=== PATIENT | male | born 1940 | race Caucasian/White ===

== ENCOUNTER 2017-09-05 08:16 | Day surgery (SDC) | payer MEDICARE ==
[2017-09-04 10:33] VITALS: BMI 23.5
[~2017-09-05 08:16] MED LIST: LACTATED RINGERS 1,000 ML IV SCH
[2017-09-05 09:07] VITALS: TEMP 97.8
[2017-09-05] MEDS: CYCLOPENTOLATE 1% OPHTH SOLN 2 ML BTL OP ONE ×3 (09:13→09:25)
[2017-09-05] MEDS: PHENYLEPHRINE 10% OPHTH DROPS 5 ML BTL OP ONE ×3 (09:15→09:28)
[2017-09-05] MEDS: FLURBIPROFEN 0.03% OPHTH DROPS 2.5 ML BTL OP ONE ×3 (09:17→09:30)
[2017-09-05] MEDS ORDERED: LACTATED RINGERS 1,000 ML IV ONE (09:31)
[2017-09-05 10:10] LABS: Prothrombin Time 26.5 sec (9.0-12.0)
[2017-09-05] MEDS ORDERED: fentaNYL (PF) 50 MCG/ML 2 ML AMP ONE (10:46)
[2017-09-05] MEDS ORDERED: MIDAZOLAM 2 MG/2 ML VIAL ONE (10:46)
[2017-09-05] MEDS ORDERED: PROPOFOL 10 MG/ML 20 ML VIAL IV ONE (10:46)
[2017-09-05] MEDS ORDERED: EPINEPHrine (PF) 0.5 ML in BALANCED SALT IRRIG SOLN COMB2 500 ML IRRIGATION ONE (10:58)
[2017-09-05] MEDS ORDERED: BALANCED SALT IRRIG SOLN COMB2 15 ML IRRIG.SOLN IRRIGATION ONE (10:59)
[2017-09-05] MEDS ORDERED: HYALURONATE SODIUM INTRAOCULAR 1 EACH SYRINGE (10MG/ML) INTRAOCULA ONE (10:59)
--- NOTE | 2017-09-05 11:09 | P.OP ---
Date of Procedure: 09/05/17 Procedure(s) Performed: PREOPERATIVE DIAGNOSIS: Cataract, left eye. POSTOPERATIVE DIAGNOSIS: Cataract, left eye. OPERATION: Phacoemulsification cataract, left eye. DESCRIPTION OF PROCEDURE: The patient was taken to the preoperative holding area. Intravenous Propofol was given so as to bring about adequate sedation. The following mixture was given for local anesthesia: 5 mL of 2% lidocaine, 5 mL of 0.75% Marcaine, and 1 mL of Wydase. Approximately 4 mL was injected in the retrobulbar space of the surgical eye. Additional 1 mL was then directed to the temporal area of the surgical eye. This was performed to allow adequate neurological block of the facial muscles. The patient was revived and then taken into the operative room. The patient was prepped and draped in the usual sterile manner for the operative eye. A lid speculum was put into position. The conjunctiva was resected back from the limbus in the 12 o'clock position. Bleeding was controlled with electrocautery. A #69 blade was then used and a half-thickness scleral incision approximately 1-mm posterior to the limbus was made on bare sclera. This was shelved in the clear cornea using a crescent knife. Next a 15-degree blade was used to make a stab incision at the 3 o' clock position at the corneolimbal interface. Keratome blade was then used and the superior wound was extended into the anterior chamber. Viscoelastic was injected into the anterior chamber and to maintain its form. Next, a cystotome was used and a continuous anterior capsulotomy was made without difficulty. Hydrodissection using a blunt cannula and BSS was performed. Phaco probe was then employed and a groove extending from 12 to 6 o'clock in the lens was created. A Dominick wand was used through the stab incision so as to perform a divide and conquer technique. Next an irrigation aspiration probe was utilized and any residual cortex was removed from the eye. Again, viscoelastic was injected into the anterior chamber. An Jesse posterior chamber lens implant was placed in the cartridge and injected into the anterior chamber without difficulty. The [employer] hook was utilized to spin the lens into position and this was again performed without any difficulty. The irrigation and aspiration probe was again employed and any residual viscoelastic was removed from the eye. Then BSS was injected into the limbal stab incision and the anterior chamber re-inflated. The conjunctiva was reapproximated using electrocautery. One drop of 0.25% Timoptic was placed over the corneal along with TobraDex ophthalmic ointment. Two sterile patches and a Neri eye shield were taped into position. The patient was transported to the recovery room in stable condition. Pathology: none sent Condition: stable Disposition: same day
[2017-09-05 11:28] VITALS: BP 148/87; PULSE 84; RESP 18
[2017-09-05] MEDS ORDERED: TIMOLOL 0.5% OPHTH DROPS 5 ML BTL OP ONE (23:00)
[2017-09-05] MEDS ORDERED: BUPIVACAINE (PF) 0.75% 5 ML, HYALURONIDASE, HUMAN RECOMB 150 UNIT, LIDOCAINE 2% (PF) 10... MISCELLANE ONE ×3 (23:00)
[2017-09-05] MEDS ORDERED: GENTAMICIN/PREDNISOL AC OPHTH OINT 3.5GM OPHTHALMIC ONE (23:00)
== END 2017-09-05 11:47 | disposition home or self-care (01) ==
LOC: OR 08:16
PROVIDERS: ATTEND Ophthalmology
DX: H26.9 Unspecified cataract (principal); H04.129 Dry eye syndrome of unspecified lacrimal gland; I10 Essential (primary) hypertension; I48.91 Unspecified atrial fibrillation; Z79.01 Long term (current) use of anticoagulants; Z87.891 Personal history of nicotine dependence; Z95.2 Presence of prosthetic heart valve; K21.9 Gastro-esophageal reflux disease without esophagitis; K57.90 Diverticulosis of intestine, part unspecified, without perforation or abscess without bleeding; Z79.899 Other long term (current) drug therapy; Z88.5 Allergy status to narcotic agent; Z88.0 Allergy status to penicillin; Z88.8 Allergy status to other drugs, medicaments and biological substances
CPT/HCPCS: 85610; 66984; V2632; J2250; J3470; J2001; J0171; J3010; J2704

== ENCOUNTER 2017-10-31 10:31 | Day surgery (SDC) | payer MEDICARE ==
[2017-10-24 16:25] VITALS: BMI 23.5
[~2017-10-31 10:31] MED LIST changes: -LACTATED RINGERS 1,000 ML IV SCH; +LIDOCAINE 1% 20 ML VIAL (10MG/ML) FOR IV START INTRADERMA PRN; +MIDAZOLAM 2 MG/2 ML VIAL IV PRN
[2017-10-31 11:35] VITALS: RESP 18; TEMP 97.3
[2017-10-31] MEDS: CYCLOPENTOLATE 1% OPHTH SOLN 2 ML BTL OP ONE ×3 (11:38→11:58)
[2017-10-31] MEDS: PHENYLEPHRINE 10% OPHTH DROPS 5 ML BTL OP ONE ×3 (11:42→12:02)
[2017-10-31] MEDS: FLURBIPROFEN 0.03% OPHTH DROPS 2.5 ML BTL OP ONE ×3 (11:45→12:04)
[2017-10-31] MEDS: LACTATED RINGERS 1,000 ML IV SCH ×2 (11:53→12:17)
[2017-10-31] MEDS ORDERED: PROPOFOL 10 MG/ML 20 ML VIAL IV ONE (12:18)
[2017-10-31] MEDS ORDERED: EPINEPHrine (PF) 0.5 ML in BALANCED SALT IRRIG SOLN COMB2 500 ML IRRIGATION ONE (12:22)
[2017-10-31] MEDS ORDERED: HYALURONATE SODIUM INTRAOCULAR 1 EACH SYRINGE (10MG/ML) INTRAOCULA ONE (12:23)
[2017-10-31] MEDS ORDERED: TIMOLOL 0.5% OPHTH SOLN (PF) 0.2 ML DROPERETTE RIGHT EYE ONE (12:23)
[2017-10-31] MEDS ORDERED: BALANCED SALT IRRIG SOLN COMB2 15 ML IRRIG.SOLN IRRIGATION ONE (12:23)
--- NOTE | 2017-10-31 12:42 | P.OP ---
Date of Procedure: 10/31/17 Procedure(s) Performed: PREOPERATIVE DIAGNOSIS: Cataract, right eye. POSTOPERATIVE DIAGNOSIS: Cataract, right eye. OPERATION: Phacoemulsification cataract, right eye. DESCRIPTION OF PROCEDURE: The patient was taken to the preoperative holding area. Intravenous Propofol was given so as to bring about adequate sedation. The following mixture was given for local anesthesia: 5 mL of 2% lidocaine, 5 mL of 0.75% Marcaine, and 1 mL of Wydase. Approximately 4 mL was injected in the retrobulbar space of the surgical eye. Additional 1 mL was then directed to the temporal area of the surgical eye. This was performed to allow adequate neurological block of the facial muscles. The patient was revived and then taken into the operative room. The patient was prepped and draped in the usual sterile manner for the operative eye. A lid speculum was put into position. The conjunctiva was resected back from the limbus in the 12 o'clock position. Bleeding was controlled with electrocautery. A #69 blade was then used and a half-thickness scleral incision approximately 1-mm posterior to the limbus was made on bare sclera. This was shelved in the clear cornea using a crescent knife. Next a 15-degree blade was used to make a stab incision at the 3 o' clock position at the corneolimbal interface. Keratome blade was then used and the superior wound was extended into the anterior chamber. Viscoelastic was injected into the anterior chamber and to maintain its form. Next, a cystotome was used and a continuous anterior capsulotomy was made without difficulty. Hydrodissection using a blunt cannula and BSS was performed. Phaco probe was then employed and a groove extending from 12 to 6 o'clock in the lens was created. A Dominick wand was used through the stab incision so as to perform a divide and conquer technique. Next an irrigation aspiration probe was utilized and any residual cortex was removed from the eye. Again, viscoelastic was injected into the anterior chamber. An Jesse posterior chamber lens implant was placed in the cartridge and injected into the anterior chamber without difficulty. The [employer] hook was utilized to spin the lens into position and this was again performed without any difficulty. The irrigation and aspiration probe was again employed and any residual viscoelastic was removed from the eye. Then BSS was injected into the limbal stab incision and the anterior chamber re-inflated. The conjunctiva was reapproximated using electrocautery. One drop of 0.25% Timoptic was placed over the corneal along with TobraDex ophthalmic ointment. Two sterile patches and a Neri eye shield were taped into position. The patient was transported to the recovery room in stable condition. Pathology: none sent Condition: stable Disposition: same day
[2017-10-31 13:04] VITALS: BP 159/82; PULSE 84
[2017-10-31] MEDS ORDERED: BUPIVACAINE (PF) 0.75% 5 ML, HYALURONIDASE, HUMAN RECOMB 150 UNIT, LIDOCAINE 2% (PF) 10... MISCELLANE ONE ×3 (23:00)
[2017-10-31] MEDS ORDERED: GENTAMICIN/PREDNISOL AC OPHTH OINT 3.5GM OPHTHALMIC ONE (23:00)
[2017-10-31] MEDS ORDERED: TIMOLOL 0.5% OPHTH DROPS 5 ML BTL OP ONE (23:00)
== END 2017-10-31 13:28 | disposition home or self-care (01) ==
LOC: OR 10:31
PROVIDERS: ATTEND Ophthalmology
DX: H26.9 Unspecified cataract (principal); I10 Essential (primary) hypertension; H04.129 Dry eye syndrome of unspecified lacrimal gland; Z96.1 Presence of intraocular lens; Z85.038 Personal history of other malignant neoplasm of large intestine; Z95.2 Presence of prosthetic heart valve; Z79.01 Long term (current) use of anticoagulants; Z87.891 Personal history of nicotine dependence; E78.5 Hyperlipidemia, unspecified; Z85.828 Personal history of other malignant neoplasm of skin; K21.9 Gastro-esophageal reflux disease without esophagitis; Z79.899 Other long term (current) drug therapy; Z88.5 Allergy status to narcotic agent; Z88.8 Allergy status to other drugs, medicaments and biological substances
CPT/HCPCS: 66984; V2632; J3470; J2001; J0171; J2704

== ENCOUNTER → 2017-12-07 | Outpatient (CLI) | payer MEDICARE ==
[2017-12-07 11:07] LABS: INR 3.3 (<1.2); Prothrombin Time 29.8 sec (9.0-12.0)
[2017-12-07 11:10] LABS: Anisocytosis Slight; HCT 32.6 % (39.0-53.0); Hypochromasia Moderate; MCH 27.2 pg (25.0-35.0); MCHC 31.9 g/dL (31.0-37.0); Mean Platelet Volume 7.4; Platelet Count 211 k/uL (150-450); Poikilocytosis Slight; RBC 3.82 m/uL (4.30-5.90); RDW 16.2 % (11.5-15.5); WBC 4.6 k/uL (3.8-10.6)
--- NOTE | 2017-12-07 11:13 | XR ---
EXAMINATION TYPE: XR chest 2V DATE OF EXAM: 12/07/2017 COMPARISON: NONE HISTORY: Shortness of breath TECHNIQUE: Frontal and lateral views of the chest are obtained. FINDINGS: Scattered senescent parenchymal changes noted. Hyperinflation compatible with COPD. Chronic appearing elevation right hemidiaphragm. Small effusion as well as mild linear density at the right lung base may reflect atelectasis or developing infiltrate. Correlate clinically. Heart size is mildly enlarged. Pericardial calcification noted. Mediastinal structures are stable and grossly unremarkable. No evidence for hilar prominence. Degenerative changes dorsal spine. IMPRESSION: 1. Chronic appearing elevation right hemidiaphragm. Small effusion as well as mild linear density at the right lung base may reflect atelectasis or developing infiltrate. Correlate clinically.
[2017-12-07 11:15] LABS: HGB 10.4 gm/dL (13.0-17.5); MCV 85.3 fL (80.0-100.0)
[2017-12-07 11:25] LABS: Albumin 4.4 g/dL (3.5-5.0); Calcium 9.7 mg/dL (8.4-10.2); Potassium 4.8 mmol/L (3.5-5.1); Total Bilirubin 2.2 mg/dL (0.2-1.3); Total Protein 7.4 g/dL (6.3-8.2)
== END | disposition home or self-care (01) ==
LOC: LABWHC1 10:02
PROVIDERS: ATTEND Internal Medicine
DX: J98.6 Disorders of diaphragm (principal); J90 Pleural effusion, not elsewhere classified; R91.8 Other nonspecific abnormal finding of lung field; I48.0 Paroxysmal atrial fibrillation; N18.3 Chronic kidney disease, stage 3 (moderate); Z51.81 Encounter for therapeutic drug level monitoring; Z95.4 Presence of other heart-valve replacement
CPT/HCPCS: 36415; 71046; 80053; 83880; 85027; 85610

== ENCOUNTER 2017-12-21 09:52 | Day surgery (SDC) | payer MEDICARE ==
[2017-12-18 15:19] VITALS: BMI 23.6
[~2017-12-21 09:52] MED LIST changes: -LIDOCAINE 1% 20 ML VIAL (10MG/ML) FOR IV START INTRADERMA PRN
[2017-12-21] MEDS: LACTATED RINGERS 1,000 ML IV SCH ×2 (10:34→10:45)
[2017-12-21] MEDS: LIDOCAINE 1% 20 ML VIAL (10MG/ML) FOR IV START INTRADERMA PRN ×2 (10:34→10:45)
[2017-12-21 10:44] VITALS: RESP 18; TEMP 97
[2017-12-21] MEDS ORDERED: LIDOCAINE 1% INJ 10MG/ML (20 ML MDV) ONE (11:20)
[2017-12-21] MEDS ORDERED: PROPOFOL 10 MG/ML 20 ML VIAL IV ONE (11:20)
[2017-12-21 11:39] LABS: Calcium 9.2 mg/dL (8.4-10.2); Potassium 3.8 mmol/L (3.5-5.1)
--- NOTE | 2017-12-21 11:53 | P.PCN ---
Date of Procedure: 12/21/17 Procedure(s) Performed: Brief history: Patient is a pleasant 77-year-old white male scheduled for an elective upper endoscopy as well as colonoscopy as a part of evaluation of intermittent dysphagia to solids which has been progressively getting worse for the last 6 months duration. He has known history of esophageal stricture that was dilated in 2016. He is also scheduled for a screening colonoscopy today. Procedure performed: Esophagogastroduodenoscopy with biopsy and dilation Colonoscopy Preoperative diagnosis: Progressive dysphagia to solids Screening for colon cancer Anesthesia: MAC Procedure: After informed consent was obtained from the patient was brought into the endoscopy unit and IV sedation was administered by anesthesia under continuous monitoring. Initially upper endoscopy was done. The Olympus GF 160 video endoscope was inserted inserted into the mouth and esophagus intubated without any difficulty and was gradually advanced into the distal esophagus and there was evidence of esophageal stricture noted. The scope could not be advanced through the stricture. At this time the scope was removed and a pediatric upper endoscopy was introduced into the mouth and esophagus reintubated without any difficulty and was gradually advanced into the distal esophagus. Despite this I was not able to advance the scope into the stomach because of the tight esophageal stricture. At this time I proceeded with a balloon dilation using 8- 10 TTS balloon for total of 90 seconds. Following this with gentle manipulation it was able to advance the scope into the stomach and duodenum and carefully examined. The bulb and second part of the duodenum appeared normal. The scope was then withdrawn into the stomach adequately insufflated with air and upon careful examination the antrum and body, cardia and fundus appeared normal. The scope was then withdrawn into the esophagus. Small hiatal hernia noted. The GE junction was located at 40 cm to the incisors. There was severe esophagitis with multiple erosions or ulcerations in the distal esophagus consistent with LA grade C reflux esophagitis. There was a small hiatal hernia noted. The distal folds appeared thickened and the cardia of the stomach is also biopsied. 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 Rest of the esophagus appeared normal. Patient tolerated the procedure well. At this time the patient continued to remain sedation. Initial digital rectal examination was normal. Olympus CF 160 video colonoscope was then inserted into the rectum and gradually advanced to the cecum without any difficulty. Careful examination was performed as the scope was gradually being withdrawn. The prep was excellent. The cecum, ascending colon, transverse colon, descending colon, sigmoid colon and rectum appeared normal. Scattered left- sided diverticulosis seen. Retroflexion was performed in the rectum and no lesions were noted. Patient tolerated the procedure well. Impression: 1. 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 Colonoscopy revealed scattered sigmoid diverticulosis but no evidence of colorectal neoplasia. Recommendations: Findings of this examination were discussed with the patient as well as his family. He was advised to follow with the biopsy results. He was given a prescription for Prilosec 20 mg twice daily half hour before breakfast and dinnertime and follow antireflux measures. He will remain on clear liquid diet today.
[2017-12-21 11:59] VITALS: PULSE 84
[2017-12-21 12:22] VITALS: BP 130/70
== END 2017-12-21 13:05 | disposition home or self-care (01) ==
LOC: ORWHC2ENDO 09:52
PROVIDERS: ATTEND Internal Medicine Gastroenterology
DX: Z12.11 Encounter for screening for malignant neoplasm of colon (principal); K29.50 Unspecified chronic gastritis without bleeding; K22.2 Esophageal obstruction; K57.30 Diverticulosis of large intestine without perforation or abscess without bleeding; K44.9 Diaphragmatic hernia without obstruction or gangrene; K22.70 Barrett's esophagus without dysplasia; I10 Essential (primary) hypertension; E78.5 Hyperlipidemia, unspecified; K21.9 Gastro-esophageal reflux disease without esophagitis; Z95.2 Presence of prosthetic heart valve; Z79.899 Other long term (current) drug therapy; Z79.01 Long term (current) use of anticoagulants; Z85.828 Personal history of other malignant neoplasm of skin
CPT/HCPCS: 43239; 88305; 80048; 88312; 88342; 88341; 45378; 43249; J2001; J2704

== ENCOUNTER → 2018-02-14 | Outpatient (CLI) | payer MEDICARE ==
[2018-02-14 08:23] LABS: Anisocytosis Slight; HCT 32.8 % (39.0-53.0); HGB 10.2 gm/dL (13.0-17.5); Hypochromasia Marked; MCH 24.2 pg (25.0-35.0); MCHC 31.1 g/dL (31.0-37.0); MCV 77.9 fL (80.0-100.0); Mean Platelet Volume 7.2; Microcytosis Slight; Platelet Count 173 k/uL (150-450); RBC 4.21 m/uL (4.30-5.90); RDW 19.5 % (11.5-15.5); WBC 4.7 k/uL (3.8-10.6)
[2018-02-14 08:42] LABS: Albumin 4.5 g/dL (3.5-5.0); Calcium 9.7 mg/dL (8.4-10.2); Potassium 4.6 mmol/L (3.5-5.1); Total Bilirubin 1.8 mg/dL (0.2-1.3)
--- NOTE | 2018-02-14 09:09 | XR ---
EXAMINATION TYPE: XR chest 2V DATE OF EXAM: 02/14/2018 COMPARISON: Chest x-ray December 07, 2017 HISTORY: History of CHF with shortness of breath TECHNIQUE: Frontal and lateral views of the chest are obtained. FINDINGS: Overlying sternal wires are redemonstrated. There is chronic parenchymal change with eleva erwin right hemidiaphragm and persistent right basilar opacity suspicious for small pleural effusion ex tending into fissure with likely associated atelectatic change. Patchy left basilar scarring redemon strated. No new focal airspace opacity or pneumothorax is seen bilaterally. The cardiac silhouette si ze is stable and upper limits of normal with pericardial calcifications. The osseous structures are intact. IMPRESSION: Chronic changes with persistent elevated right hemidiaphragm and small right pleural eff usion and associated right basilar atelectasis. No new infiltrate is seen.
== END | disposition home or self-care (01) ==
LOC: LABWHC1 07:59
PROVIDERS: ATTEND Internal Medicine Interventional Cardiology
DX: J90 Pleural effusion, not elsewhere classified (principal); J98.11 Atelectasis; R91.8 Other nonspecific abnormal finding of lung field; R06.09 Other forms of dyspnea; D69.6 Thrombocytopenia, unspecified; Z95.2 Presence of prosthetic heart valve
CPT/HCPCS: 36415; 71046; 80053; 85027

== ENCOUNTER → 2018-05-18 | Day surgery (SDC) | payer MEDICARE ==
[2018-05-15 17:26] VITALS: BMI 22.6
[~2018-05-18] MED LIST changes: +LACTATED RINGERS 1,000 ML IV SCH; +LIDOCAINE 1% 20 ML VIAL (10MG/ML) FOR IV START INTRADERMA ONE; +LIDOCAINE 1% INJ 10MG/ML (20 ML MDV) ONE; -MIDAZOLAM 2 MG/2 ML VIAL IV PRN; +PROPOFOL 10 MG/ML 20 ML VIAL IV ONE
[2018-05-18 13:35] VITALS: RESP 16; TEMP 96.9
[2018-05-18 15:18] VITALS: PULSE 79
--- NOTE | 2018-05-18 15:18 | P.PCN ---
Date of Procedure: 05/18/18 Procedure(s) Performed: BRIEF HISTORY: Patient is a 78-year-old, pleasant, male, scheduled for an upper endoscopy as a part of evaluation of GERD/intermittent dysphagia to solids and surveillance of Latif's esophagus. Last upper endoscopy was done in December 2017 and was noted to have questionable Latif's esophagus and biopsies revealed no evidence of intestinal metaplasia but evidence of atypia. His and scheduled for repeat surveillance upper endoscopy in 3 months.. PROCEDURE PERFORMED: Esophagogastroduodenoscopy with biopsy and dilation. PREOPERATIVE DIAGNOSIS: GERD/intermittent dysphagia. IV sedation per anesthesia. PROCEDURE: After informed consent was obtained, the patient was brought into the endoscopy unit. IV sedation was administered by Anesthesia under continuous monitoring. Initially the Olympus GIF-140 video endoscope was inserted into the mouth. Esophagus intubated without any difficulty. It was gradually advanced into the stomach and duodenum and carefully examined. The bulb and the second part of the duodenum appeared normal. The scope at this time was withdrawn to the stomach, adequately insufflated with air, and upon careful examination, mucosa of the antrum, body, cardia and the fundus appeared normal. The scope was then withdrawn into the esophagus. Small hiatal hernia noted. The GE junction was located at 39 cm from the incisors. There was an early esophageal stricture noted and this was dilated using 12-13.5 and admitted TTS balloon for 60 seconds. The rest of the esophagus appeared normal. There were no erosions or ulcerations seen. There was no evidence of obvious Latif's esophagus. However there was some thickening of the folds noted in the cardia of the stomach which were biopsied. Rest of the esophagus appeared normal and and the patient tolerated the procedure well. IMPRESSION: 1. Early esophageal stricture status post balloon dilation using 12 and 13.5 mm TTS balloon as described above. 2. Small hiatal hernia 3. Thickened folds in the cardia of the stomach status post biopsy. 4. No evidence of Latif's esophagus. RECOMMENDATIONS: The findings of this examination were discussed with the patient as well as a family. He was advised to resume Coumadin today. He will follow with the biopsy results. He will continuous with the current PPI and follow-up in the office as needed..
[2018-05-18 15:34] VITALS: BP 114/67
== END ==
LOC: ORWHC2ENDO 12:28
PROVIDERS: ATTEND Internal Medicine Gastroenterology
DX: K22.2 Esophageal obstruction (principal); K29.50 Unspecified chronic gastritis without bleeding; K44.9 Diaphragmatic hernia without obstruction or gangrene; K21.9 Gastro-esophageal reflux disease without esophagitis; I10 Essential (primary) hypertension; E78.5 Hyperlipidemia, unspecified; Z79.01 Long term (current) use of anticoagulants; Z79.899 Other long term (current) drug therapy; Z88.5 Allergy status to narcotic agent; Z88.8 Allergy status to other drugs, medicaments and biological substances; Z95.2 Presence of prosthetic heart valve
CPT/HCPCS: 88305; 43239; 43249; J2001; J2704; C1726

== ENCOUNTER 2021-08-31 08:53 | Inpatient (IN) | payer MEDICARE ==
[2021-08-31 10:05] LABS: Basophils % (A) 0 %; Eosinophils # (A) 0.2 k/uL (0-0.7); Eosinophils % (A) 3 %; HCT 34.8 % (39.0-53.0); HGB 11.9 gm/dL (13.0-17.5); Lymphocytes # (A) 0.6 k/uL (1.0-4.8); Lymphocytes % (A) 9 %; MCH 34.1 pg (25.0-35.0); MCHC 34.1 g/dL (31.0-37.0); Mean Platelet Volume 9.4; Monocytes # (A) 0.6 k/uL (0-1.0); Monocytes % (A) 9 %; Neutrophils # (A) 4.9 k/uL (1.3-7.7); Neutrophils % (A) 76 %; Platelet Count 172 k/uL (150-450); RBC 3.48 m/uL (4.30-5.90); RDW 13.4 % (11.5-15.5); WBC 6.5 k/uL (3.8-10.6)
--- NOTE | 2021-08-31 10:05 | ED ---
General Adult HPI - General Chief complaint: Weakness Stated complaint: kidney problems, fluid around heart Source: patient, family Mode of arrival: wheelchair Limitations: no limitations - History of Present Illness Initial comments: 81 year old male with past medical history of diastolic heart failure, aortic valve replacement on Coumadin who presents to the emergency department for abnormal labs. I did receive a call from Dr. Shabazz who states that he has been attempting to help the patient with his shortness of breath. He was seen in the office and operatory studies and an x-ray were completed. BNP 4000, sodium 124. He attempted to increase the patient's diuretics from 40 mg daily to twice daily as well as having him take his spironolactone 25 mg. The patient continues to be short of breath. He was supposed to have an echo with Dr. Tompkins however as his labs were worsening from July they recommended that he come into the emergency department for admission. He was scheduled to have an echo with Dr. Tompkins at 3:15. Patient denies lower externally swelling. No chest pain. Has been taking his diuretics as directed. No other alleviating, precipitating or modifying factors - Related Data Home Medications Medication Instructions Recorded Confirmed Warfarin [Coumadin] 5 mg PO SUTUTHSA 11/27/15 08/31/21 Lovastatin [Mevacor] 20 mg PO HS 05/15/18 08/31/21 Multivitamin [Men's Multi-Vitamin] 1 tab PO DAILY 05/15/18 08/31/21 Ascorbic Acid [Vitamin C] 1,000 mg PO DAILY 08/31/21 08/31/21 Cholecalciferol [Vitamin D3 (25 25 mcg PO DAILY 08/31/21 08/31/21 Mcg = 1000 Iu)] Furosemide [Lasix] See Taper PO DIRECTED 08/31/21 08/31/21 RX: Omeprazole 20 mg PO BID 08/31/21 08/31/21 Warfarin [Coumadin] 2.5 mg PO MOWEFR 08/31/21 08/31/21 Previous Rx's Medication Instructions Recorded RX: Benazepril/Hydrochlorothiazide 0.5 tab PO HS #0 08/24/15 [Benazepril-Hctz 10-12.5 mg Tab] Allergies Allergy/AdvReac Type Severity Reaction Status Date / Time meperidine HCl [From Demerol] Allergy Anaphylaxis Verified 08/31/21 10:46 phenytoin sodium Allergy Rash/Hives Verified 08/31/21 10:46 [From Dilantin] phenytoin sodium extended Allergy Rash/Hives Verified 08/31/21 10:46 [From Dilantin] Review of Systems ROS Statement: Those systems with pertinent positive or pertinent negative responses have been documented in the HPI. ROS Other: All systems not noted in ROS Statement are negative. Past Medical History Past Medical History: Cancer, GERD/Reflux, Hyperlipidemia, Hypertension, Skin Disorder Additional Past Medical History / Comment(s): Esophagus problems, anemia, "thin skin", hx skin cancer History of Any Multi-Drug Resistant Organisms: None Reported Past Surgical History: Cardiac Valve Replacement Additional Past Surgical History / Comment(s): "valve removed from esophagus"; aortic valve replacement; brain surgery x2(hematoma from fall), esophageal dilatations, BORA cataract removal Past Anesthesia/Blood Transfusion Reactions: No Reported Reaction Past Psychological History: No Psychological Hx Reported Smoking Status: Never smoker Past Alcohol Use History: None Reported Past Drug Use History: None Reported - Past Family History Father Family Medical History: Cancer Additional Family Medical History / Comment(s): leukemia Mother Family Medical History: Cancer Additional Family Medical History / Comment(s): breast/colon cancer Daughter(s) Family Medical History: Cancer Additional Family Medical History / Comment(s): melanoma General Exam Limitations: no limitations Course Vital Signs 08/31/21 08/31/21 08:54 09:31 Temperature 97.1 F L 97.5 F L Pulse Rate 90 86 Respiratory 18 14 Rate Blood Pressure 127/74 124/72 O2 Sat by Pulse 97 99 Oximetry EKG Findings - EKG Comments: EKG Findings:: EKG demonstrates sinus rhythm with a ventricular rate of 86. WV interval 163. QRS 85. QTC of 412. Inverted T waves with ST depression 2, 3, aVF as well as V5 and V6. Minimal ST elevation in V2. Morphology similar to previous EKG Medical Decision Making - Medical Decision Making Upon arrival patient is placed into room 11. Thorough history and physical exam was performed. I did review the patient's lab work from yesterday. I also completed repeat laboratory studies which demonstrated an INR 5.5. Sodium 124. Creatinine 2.2. BNP 4960. Troponin 0.038. I did recommend admission. Patient will be given 40 mg of IV Lasix. Spoke with Dr. Nuñez who agreed to admit the patient. He is awaiting a bed on the floor in stable condition - Lab Data Result diagrams: 08/31/21 09:11 08/31/21 09:11 Lab Results 08/31/21 08/31/21 08/31/21 Range/Units 09:11 09:11 09:11 WBC 6.5 (3.8-10.6) k/uL RBC 3.48 L (4.30-5.90) m/uL Hgb 11.9 L (13.0-17.5) gm/dL Hct 34.8 L (39.0-53.0) % MCV 100.0 (80.0-100.0) fL MCH 34.1 (25.0-35.0) pg MCHC 34.1 (31.0-37.0) g/dL RDW 13.4 (11.5-15.5) % Plt Count 172 (150-450) k/uL MPV 9.4 Neutrophils % 76 % Lymphocytes % 9 % Monocytes % 9 % Eosinophils % 3 % Basophils % 0 % Neutrophils # 4.9 (1.3-7.7) k/uL Lymphocytes # 0.6 L (1.0-4.8) k/uL Monocytes # 0.6 (0-1.0) k/uL Eosinophils # 0.2 (0-0.7) k/uL Basophils # 0.0 (0-0.2) k/uL PT 55.4 H (9.0-12.0) sec INR 5.5 H* (<1.2) APTT 35.1 H (22.0-30.0) sec Sodium 124 L (137-145) mmol/L Potassium 5.0 (3.5-5.1) mmol/L Chloride 93 L (98-107) mmol/L Carbon Dioxide 19 L (22-30) mmol/L Anion Gap 12 mmol/L BUN 57 H (9-20) mg/dL Creatinine 2.26 H (0.66-1.25) mg/dL Est GFR (CKD-EPI)AfAm 31 (>60 ml/min/1.73 sqM) Est GFR (CKD-EPI)NonAf 27 (>60 ml/min/1.73 sqM) Glucose 94 (74-99) mg/dL Calcium 9.4 (8.4-10.2) mg/dL Magnesium 1.8 (1.6-2.3) mg/dL Total Bilirubin 2.6 H (0.2-1.3) mg/dL AST 43 (17-59) U/L ALT 40 (4-49) U/L Alkaline Phosphatase 133 H (38-126) U/L Troponin I (0.000-0.034) ng/mL NT-Pro-B Natriuret Pep pg/mL Total Protein 7.9 (6.3-8.2) g/dL Albumin 4.0 (3.5-5.0) g/dL Coronavirus (PCR) (Not Detectd) 08/31/21 08/31/21 08/31/21 Range/Units 09:11 09:11 10:10 WBC (3.8-10.6) k/uL RBC (4.30-5.90) m/uL Hgb (13.0-17.5) gm/dL Hct (39.0-53.0) % MCV (80.0-100.0) fL MCH (25.0-35.0) pg MCHC (31.0-37.0) g/dL RDW (11.5-15.5) % Plt Count (150-450) k/uL MPV Neutrophils % % Lymphocytes % % Monocytes % % Eosinophils % % Basophils % % Neutrophils # (1.3-7.7) k/uL Lymphocytes # (1.0-4.8) k/uL Monocytes # (0-1.0) k/uL Eosinophils # (0-0.7) k/uL Basophils # (0-0.2) k/uL PT (9.0-12.0) sec INR (<1.2) APTT (22.0-30.0) sec Sodium (137-145) mmol/L Potassium (3.5-5.1) mmol/L Chloride (98-107) mmol/L Carbon Dioxide (22-30) mmol/L Anion Gap mmol/L BUN (9-20) mg/dL Creatinine (0.66-1.25) mg/dL Est GFR (CKD-EPI)AfAm (>60 ml/min/1.73 sqM) Est GFR (CKD-EPI)NonAf (>60 ml/min/1.73 sqM) Glucose (74-99) mg/dL Calcium (8.4-10.2) mg/dL Magnesium (1.6-2.3) mg/dL Total Bilirubin (0.2-1.3) mg/dL AST (17-59) U/L ALT (4-49) U/L Alkaline Phosphatase (38-126) U/L Troponin I 0.038 H* (0.000-0.034) ng/mL NT-Pro-B Natriuret Pep 4960 pg/mL Total Protein (6.3-8.2) g/dL Albumin (3.5-5.0) g/dL Coronavirus (PCR) Not Detected (Not Detectd) Disposition Clinical Impression: Supratherapeutic INR, RODOLFO (acute kidney injury), CHF (congestive heart failure) Disposition: ADMITTED IP TO THIS [facility] Condition: Stable Is patient prescribed a controlled substance at d/c from ED?: No Referrals: Lady Shabazz MD [Primary Care Provider] - 1-2 days Decision to Admit Reason: Admit from EC Decision Date: 08/31/21 Decision Time: 10:56
[2021-08-31 10:20] LABS: Calcium 9.4 mg/dL (8.4-10.2); Magnesium 1.8 mg/dL (1.6-2.3); Total Bilirubin 2.6 mg/dL (0.2-1.3); Total Protein 7.9 g/dL (6.3-8.2)
[2021-08-31 10:21] LABS: INR 5.5 (<1.2); Partial Thromboplastin Time 35.1 sec (22.0-30.0); Prothrombin Time 55.4 sec (9.0-12.0)
[2021-08-31] MEDS ORDERED: NALOXONE 0.4 MG/ML 1 ML VIAL IV PRN ×2 (10:56→12:52)
[2021-08-31] MEDS ORDERED: FUROSEMIDE 10 MG/ML 4 ML VIAL IV STA (11:27)
[2021-08-31] MEDS ORDERED: ACETAMINOPHEN TAB 325 MG TAB PO PRN (12:52)
[2021-08-31] MEDS ORDERED: ONDANSETRON 4 MG/2 ML VIAL IVP PRN (12:52)
[2021-08-31] MEDS ORDERED: MAG HYDROX/AL HYDROX/SIMETH 30 ML CUP PO PRN (12:52)
[2021-08-31] MEDS ORDERED: LOPERAMIDE 2 MG CAP PO PRN (12:52)
[2021-08-31] MEDS ORDERED: WARFARIN 5 MG TAB PO SCH (13:00)
--- NOTE | 2021-08-31 13:05 | P.HPIM ---
History of Present Illness H&P Date: 08/31/21 81-year-old male with past medical history of aortic valve replacement congestive heart failure hypertension admitted to the hospital with increased shortness of breath that has been going for the last couple weeks or so getting worse Patient is very hard of hearing family states that the patient has been having chills around a week to 10 days ago and sweating Was tested for Covid at that time and it was negative Denies any chest pain but states that the shortness of breath gets worse with any exertion Review of systems since systems has been reviewed all negative and positive findings as per history of present illness Constitutional: No acute distress, conversant, pleasant Eyes: Anicteric sclerae, moist conjunctiva, no lid-lag PERRLA ENMT: NC/AT Oropharynx clear, no erythema, exudates Neck: Supple, FROM, no masses, or JVD No carotid bruits No thyromegaly Lungs: Crackly, no accessory muscle use Cardiovascular: Heart regular in rate and rhythm, No murmurs, gallops, or rubs No peripheral edema Abdominal: Soft Nontender, no guarding, rebound or rigidity Abdomen moving with respiration Normoactive bowel sounds No hepatomegaly, No splenomegaly No palpable mass No abdominal wall hernia noted Skin: Normal temperature, tone, texture, turgor No induration No subcutaneous nodules No rash, lesions No ulcers Extremities: No digital cyanosis No clubbing Pedal pulses intact and symmetrical Radial pulses intact and symmetrical Normal gait and station No calf tenderness Psychiatric:Alert and oriented to person, place and time Appropriate affect Intact judgement Neuro: Muscles Strength 5/5 in all 4 extremities Sensation to light touch grossly present throughout Cranial nerves II-XII grossly intact No focal sensory deficits Likely acute on chronic diastolic congestive heart failure we'll start the patient on IV Lasix Will monitor kidney function closely Acute renal failure Baseline is not clear monitor continue Lasix but monitor kidney function closely we will consider nephrology consult Elevated INR patient does have aortic valve replacement Generalized weakness Fever and chills we'll start the patient improved on IV antibiotics for suspected pneumonia as the patient does have pleural effusions Covid test has been rechecked will monitor Past Medical History Past Medical History: Cancer, GERD/Reflux, Hyperlipidemia, Hypertension, Skin Disorder Additional Past Medical History / Comment(s): Esophagus problems, anemia, "thin skin", hx skin cancer History of Any Multi-Drug Resistant Organisms: None Reported Past Surgical History: Cardiac Valve Replacement Additional Past Surgical History / Comment(s): "valve removed from esophagus"; aortic valve replacement; brain surgery x2(hematoma from fall), esophageal dila tations, BORA cataract removal Past Anesthesia/Blood Transfusion Reactions: No Reported Reaction Past Psychological History: No Psychological Hx Reported Smoking Status: Never smoker Past Alcohol Use History: None Reported Past Drug Use History: None Reported - Past Family History Father Family Medical History: Cancer Additional Family Medical History / Comment(s): leukemia Mother Family Medical History: Cancer Additional Family Medical History / Comment(s): breast/colon cancer Daughter(s) Family Medical History: Cancer Additional Family Medical History / Comment(s): melanoma Medications and Allergies Home Medications Medication Instructions Recorded Confirmed Type Benazepril/Hydrochlorothiazide 0.5 tab PO HS #0 08/24/15 08/31/21 Rx [Benazepril-Hctz 10-12.5 mg Tab] Warfarin [Coumadin] 5 mg PO SUTUTHSA 11/27/15 08/31/21 History Lovastatin [Mevacor] 20 mg PO HS 05/15/18 08/31/21 History Multivitamin [Men's Multi-Vitamin] 1 tab PO DAILY 05/15/18 08/31/21 History Ascorbic Acid [Vitamin C] 1,000 mg PO DAILY 08/31/21 08/31/21 History Cholecalciferol [Vitamin D3 (25 25 mcg PO DAILY 08/31/21 08/31/21 History Mcg = 1000 Iu)] Furosemide [Lasix] See Taper PO DIRECTED 08/31/21 08/31/21 History Omeprazole 20 mg PO BID 08/31/21 08/31/21 History Warfarin [Coumadin] 2.5 mg PO MOWEFR 08/31/21 08/31/21 History Allergies Allergy/AdvReac Type Severity Reaction Status Date / Time meperidine HCl [From Demerol] Allergy Anaphylaxis Verified 08/31/21 10:46 phenytoin sodium Allergy Rash/Hives Verified 08/31/21 10:46 [From Dilantin] phenytoin sodium extended Allergy Rash/Hives Verified 08/31/21 10:46 [From Dilantin] Physical Exam Vitals: Vital Signs Temp Pulse Resp BP Pulse Ox 08/31/21 09:31 97.5 F L 86 14 124/72 99 02/15/22 08:54 97.1 F L 90 18 127/74 97 Intake and Output 08/30/21 08/31/21 08/31/21 22:59 06:59 14:59 Other: Weight 68.039 kg Results CBC & Chem 7: 08/31/21 09:11 08/31/21 09:11 Labs: Abnormal Lab Results - Last 24 Hours (Table) 08/31/21 08/31/21 08/31/21 Range/Units 09:11 09:11 09:11 RBC 3.48 L (4.30-5.90) m/uL Hgb 11.9 L (13.0-17.5) gm/dL Hct 34.8 L (39.0-53.0) % Lymphocytes # 0.6 L (1.0-4.8) k/uL PT 55.4 H (9.0-12.0) sec INR 5.5 H* (<1.2) APTT 35.1 H (22.0-30.0) sec Sodium 124 L (137-145) mmol/L Chloride 93 L (98-107) mmol/L Carbon Dioxide 19 L (22-30) mmol/L BUN 57 H (9-20) mg/dL Creatinine 2.26 H (0.66-1.25) mg/dL Total Bilirubin 2.6 H (0.2-1.3) mg/dL Alkaline Phosphatase 133 H (38-126) U/L Troponin I (0.000-0.034) ng/mL 08/31/21 Range/Units 09:11 RBC (4.30-5.90) m/uL Hgb (13.0-17.5) gm/dL Hct (39.0-53.0) % Lymphocytes # (1.0-4.8) k/uL PT (9.0-12.0) sec INR (<1.2) APTT (22.0-30.0) sec Sodium (137-145) mmol/L Chloride (98-107) mmol/L Carbon Dioxide (22-30) mmol/L BUN (9-20) mg/dL Creatinine (0.66-1.25) mg/dL Total Bilirubin (0.2-1.3) mg/dL Alkaline Phosphatase (38-126) U/L Troponin I 0.038 H* (0.000-0.034) ng/mL
[2021-08-31] MEDS ORDERED: AZITHROMYCIN 500 MG in SODIUM CHLORIDE 0.9% 250 ML IVPB ONE (13:15)
[2021-08-31] MEDS ORDERED: WARFARIN 0.5 MG TAB PO ONE (18:00)
[2021-08-31] MEDS: ATORVASTATIN 10 MG TAB PO SCH (21:45)
[2021-09-01 06:11] LABS: Glucose,Whole Blood 103 mg/dL (75-99)
--- NOTE | 2021-09-01 07:09 | ECHOF ---
Referral Reason: MEASUREMENTS -------- HEIGHT: 167.6 cm WEIGHT: 68.0 kg BP: RVIDd: 2.3 cm (< 3.3) IVSd: 1.1 cm (0.6 - 1.1) LVIDd: 3.0 cm (3.9 - 5.3) LVPWd: 1.3 cm (0.6 - 1.1) IVSs: 1.5 cm LVIDs: 1.4 cm LVPWs: 1.7 cm Ao Diam: 3.3 cm (2.0 - 3.7) AV Cusp: 1.8 cm (1.5 - 2.6) LA Diam: 3.5 cm (2.7 - 3.8) MV EXCURSION: 10.378 mm (> 18.000) MV EF SLOPE: 87 mm/s (70 - 150) EPSS: 1.3 cm MV E Nico: 1.10 m/s MV DecT: 270 ms MV A Nico: 0.91 m/s MV E/A Ratio: 1.21 AV maxP.76 mmHg AV meanP.40 mmHg RAP: 15.00 mmHg RVSP: 34.89 mmHg FINDINGS -------- Sinus rhythm. This was a technically adequate study. The left ventricular size is normal. Left ventricular wall thickness is normal. Overall left vent ricular systolic function is normal with, an EF between 55 - 60 %. The right ventricle is normal in size. The left atrial size is normal. The right atrial size is normal. Peak/mean gradient across the Aortic Valve is 29.76mmHg / 18.40mmHg. Normally functioning mechanica l prosthetic valve. Mild mitral annular calcification present. Mild mitral regurgitation is present. The tricuspid valve appears structurally normal. Mild tricuspid regurgitation present. Right vent ricular systolic pressure is normal at < 35 mmHg. There is no pulmonic regurgitation present. The aortic root size is normal. The inferior vena cava is mildly dilated. There is no pericardial effusion. Large Pleural Effusion. CONCLUSIONS -------- 1. Left ventricular wall thickness is normal. 2. Overall left ventricular systolic function is normal with, an EF between 55 - 60 %. 3. Peak/mean gradient across the Aortic Valve is 29.76mmHg / 18.40mmHg. 4. Normally functioning mechanical prosthetic valve. 5. Mild mitral annular calcification present. 6. Mild mitral regurgitation is present. 7. Mild tricuspid regurgitation present. 8. The inferior vena cava is mildly dilated. 9. Large Pleural Effusion. POCKET OPERATOR: Liliane Fernandez RDCS
[2021-09-01 07:28] LABS: Basophils % (A) 0 %; Eosinophils # (A) 0.3 k/uL (0-0.7); Eosinophils % (A) 4 %; HCT 34.1 % (39.0-53.0); HGB 11.4 gm/dL (13.0-17.5); Lymphocytes # (A) 0.5 k/uL (1.0-4.8); Lymphocytes % (A) 7 %; MCH 33.7 pg (25.0-35.0); MCHC 33.5 g/dL (31.0-37.0); MCV 100.6 fL (80.0-100.0); Monocytes # (A) 0.5 k/uL (0-1.0); Monocytes % (A) 9 %; Neutrophils # (A) 4.8 k/uL (1.3-7.7); Neutrophils % (A) 77 %; Platelet Count 183 k/uL (150-450); RBC 3.39 m/uL (4.30-5.90); RDW 13.5 % (11.5-15.5); WBC 6.1 k/uL (3.8-10.6)
[2021-09-01 07:44] LABS: Calcium 9.3 mg/dL (8.4-10.2); INR 4.2 (<1.2); Potassium 4.3 mmol/L (3.5-5.1)
[2021-09-01] MEDS: FUROSEMIDE 10 MG/ML 4 ML VIAL IV SCH (08:15)
--- NOTE | 2021-09-01 09:54 | P.PN ---
Subjective Progress Note Date: 09/01/21 Principal diagnosis: Patient feels better today more awake and alert 81-year-old male with past medical history of aortic valve replacement congestive heart failure hypertension admitted to the hospital with increased shortness of breath that has been going for the last couple weeks or so getting worse Patient is very hard of hearing family states that the patient has been having chills around a week to 10 days ago and sweating Was tested for Covid at that time and it was negative Denies any chest pain but states that the shortness of breath gets worse with any exertion Review of systems since systems has been reviewed all negative and positive findings as per history of present illness Constitutional: No acute distress, conversant, pleasant Eyes: Anicteric sclerae, moist conjunctiva, no lid-lag PERRLA ENMT: NC/AT Oropharynx clear, no erythema, exudates Neck: Supple, FROM, no masses, or JVD No carotid bruits No thyromegaly Lungs: Crackly, no accessory muscle use Cardiovascular: Heart regular in rate and rhythm, No murmurs, gallops, or rubs No peripheral edema Abdominal: Soft Nontender, no guarding, rebound or rigidity Abdomen moving with respiration Normoactive bowel sounds No hepatomegaly, No splenomegaly No palpable mass No abdominal wall hernia noted Skin: Normal temperature, tone, texture, turgor No induration No subcutaneous nodules No rash, lesions No ulcers Extremities: No digital cyanosis No clubbing Pedal pulses intact and symmetrical Radial pulses intact and symmetrical Normal gait and station No calf tenderness Psychiatric:Alert and oriented to person, place and time Appropriate affect Intact judgement Neuro: Muscles Strength 5/5 in all 4 extremities Sensation to light touch grossly present throughout Cranial nerves II-XII grossly intact No focal sensory deficits Likely acute on chronic diastolic congestive heart failure we'll start the patient on IV Lasix Will monitor kidney function closely Acute renal failure Baseline is not clear monitor continue Lasix but monitor kidney function closely we will consider nephrology consult Elevated INR patient does have aortic valve replacement Generalized weakness Fever and chills we'll start the patient improved on IV antibiotics for suspected pneumonia as the patient does have pleural effusions Covid test has been rechecked will monitor Overall slowly improving we'll continue current treatment Objective - Vital Signs Vital signs: Vital Signs Temp 97.8 F 09/01/21 08:00 Pulse 97 02/16/22 08:00 Resp 18 09/01/21 08:00 BP 110/56 09/01/21 08:00 Pulse Ox 98 09/01/21 08:00 Intake & Output 08/31/21 09/01/21 09/01/21 18:59 06:59 18:59 Intake Total 790 120 Output Total 300 225 Balance 490 -105 Weight 68.039 kg 67.9 kg Intake: Oral 790 120 Output: Urine 300 225 Other: Voiding Method Toilet Urinal - Labs CBC & Chem 7: 09/01/21 06:32 09/01/21 06:32 Labs: Abnormal Lab Results - Last 24 Hours (Table) 08/31/21 08/31/21 08/31/21 Range/Units 09:11 09:11 09:11 RBC 3.48 L (4.30-5.90) m/uL Hgb 11.9 L (13.0-17.5) gm/dL Hct 34.8 L (39.0-53.0) % MCV (80.0-100.0) fL Lymphocytes # 0.6 L (1.0-4.8) k/uL PT 55.4 H (9.0-12.0) sec INR 5.5 H* (<1.2) APTT 35.1 H (22.0-30.0) sec Sodium 124 L (137-145) mmol/L Chloride 93 L (98-107) mmol/L Carbon Dioxide 19 L (22-30) mmol/L BUN 57 H (9-20) mg/dL Creatinine 2.26 H (0.66-1.25) mg/dL POC Glucose (mg/dL) (75-99) mg/dL Total Bilirubin 2.6 H (0.2-1.3) mg/dL Alkaline Phosphatase 133 H (38-126) U/L Troponin I (0.000-0.034) ng/mL 08/31/21 09/01/21 09/01/21 Range/Units 09:11 06:08 06:32 RBC 3.39 L (4.30-5.90) m/uL Hgb 11.4 L (13.0-17.5) gm/dL Hct 34.1 L (39.0-53.0) % MCV 100.6 H (80.0-100.0) fL Lymphocytes # 0.5 L (1.0-4.8) k/uL PT (9.0-12.0) sec INR (<1.2) APTT (22.0-30.0) sec Sodium (137-145) mmol/L Chloride (98-107) mmol/L Carbon Dioxide (22-30) mmol/L BUN (9-20) mg/dL Creatinine (0.66-1.25) mg/dL POC Glucose (mg/dL) 103 H (75-99) mg/dL Total Bilirubin (0.2-1.3) mg/dL Alkaline Phosphatase (38-126) U/L Troponin I 0.038 H* (0.000-0.034) ng/mL 09/01/21 09/01/21 Range/Units 06:32 06:32 RBC (4.30-5.90) m/uL Hgb (13.0-17.5) gm/dL Hct (39.0-53.0) % MCV (80.0-100.0) fL Lymphocytes # (1.0-4.8) k/uL PT 42.0 H (9.0-12.0) sec INR 4.2 H (<1.2) APTT (22.0-30.0) sec Sodium 128 L (137-145) mmol/L Chloride 96 L (98-107) mmol/L Carbon Dioxide (22-30) mmol/L BUN 55 H (9-20) mg/dL Creatinine 2.27 H (0.66-1.25) mg/dL POC Glucose (mg/dL) (75-99) mg/dL Total Bilirubin (0.2-1.3) mg/dL Alkaline Phosphatase (38-126) U/L Troponin I (0.000-0.034) ng/mL
[2021-09-01] MEDS: AZITHROMYCIN 500 MG in SODIUM CHLORIDE 0.9% 250 ML IVPB SCH (10:54)
[2021-09-01 11:25] LABS: Glucose,Whole Blood 113 mg/dL (75-99)
--- NOTE | 2021-09-01 11:54 | P.CRDCN ---
History of Present Illness History of present illness: HISTORY OF PRESENTING ILLNESS This is a pleasant 81-year-old male past medical history significant for hypertension, dyslipidemia, mechanical aortic valve replacement 02/2000 on coumadin, chronic kidney disease. He follows in the office with Dr. Tompkins. We have been asked to see in consultation for congestive heart failure. Patient presents emergency department due to concerns for abnormal labs. He has been having symptoms of shortness of breath for about 6 months, felt it was getting worse. He also endorses symptoms of chills and night sweats. He presented to his PCP 08/30/21 chest xray and Labs were completed that revealed BNP 4,000 and Sodium 124. Diuretics were increased to 40mg BID and spironolactone was added. Patient was then told to go to the emergency department. He was started on IV Lasix 40mg daily. He states his shortness of breath has slightly improved. DIAGNOSTICS -EKG reveals sinus rhythm, heart rate 86,T wave inversions in inferior lateral leads, ST depression in leads V5 and V6. Prior EKG in the office 04/2021 with similar findings -Echocardiogram revealed EF 5560 percent, normal functioning mechanical prosthetic valve, mild mitral regurgitation, tricuspid regurgitation, large pleural effusion. -Telemetry tracings indicate sinus rhythm and sinus tachycardia, heart rates 80s to 105 -Chest xray 08/30/2021 revealed interstitial changes bilaterally, small tiny bilateral pleural effusions, cardiac silhouette within normal limits -Laboratory reviewed, Troponin 0.038, 0.03, INR 5.5, WBC 6.5, hemoglobin 11.9, platelets 172, sodium 124, potassium 5.0, BUN 57, serum crit 2.2, magnesium 1.8, proBNP 4,960, covid negative -Most recent stress test 02/2019 Lexiscan was negative for reversible ischemia -Current cardiac medications include Coumadin 2.5 mg Monday, 5 mg Monday, Lasix, benazepril/hydrochlorothiazide 1012.5 mg daily lovastatin 20 mg nightly REVIEW OF SYSTEMS At the time of my exam: CONSTITUTIONAL: Denies fever or chills. CARDIOVASCULAR: Denies chest pain, shortness of breath, orthopnea, PND or palpitations. RESPIRATORY: Denies cough. GASTROINTESTINAL: Denies abdominal pain, diarrhea, constipation, nausea or vomiting. MUSCULOSKELETAL: Denies myalgias. NEUROLOGIC: Denies numbness, tingling, headacbe or weakness. ENDOCRINE: Denies fatigue, weight change, polydipsia or polyurina. GENITOURINARY: Denies burning, hematuria or urgency with micturation. HEMATOLOGIC: Denies history of anemia or bleeding. PHYSICAL EXAMINATION Vitals reviewed CONSTITUTIONAL: No apparent distress. HEENT: Head is normocephalic. Pupils are equal, round. Sclerae anicteric. Mucous membranes of the mouth are moist. No JVD. No carotid bruit. CHEST EXAMINATION: Lungs are clear to auscultation. No chest wall tenderness is noted on palpation or with deep breathing. HEART EXAMINATION: Regular rate and rhythm. S1, S2 heard. No murmurs, gallops or rub. ABDOMEN: Soft, nontender. Positive bowel sounds. EXTREMITIES: 2+ peripheral pulses, no lower extremity edema and no calf tenderness. NEUROLOGIC EXAMINATION: Patient is awake, alert and oriented x3. ASSESSMENT Acute on chronic heart failure with preserved ejection fraction Mildly elevated troponin x1, repeat troponins negative, not indicative of acute coronary syndrome Chills, night sweats Supratherapeutic INR Acute kidney injury Chronic kidney disease Hypertension Dyslipidemia History of mechanical aortic valve replacement in 02/2000 PLAN Continue IV Lasix for additional 24 hours, hopefully transition to PO tomorrow Monitor I/Os, daily weights, renal function and electrolytes Blood cultures pending UA ordered Patient currently being treated for also possible pneumonia Repeat Daily INR Continue coumadin, based on INR readings Repeat Chest xray tomorrow Further recommendations based on clinical course Nurse practitioner note has been reviewed by physician. Signing provider agrees with the documented findings, assessment, and plan of care. Past Medical History Past Medical History: Cancer, GERD/Reflux, Hyperlipidemia, Hypertension, Skin Disorder Additional Past Medical History / Comment(s): Esophagus problems, anemia, "thin skin", hx skin cancer History of Any Multi-Drug Resistant Organisms: None Reported Past Surgical History: Cardiac Valve Replacement Additional Past Surgical History / Comment(s): "valve removed from esophagus"; aortic valve replacement; brain surgery x2(hematoma from fall), esophageal dilatations, BORA cataract removal Past Anesthesia/Blood Transfusion Reactions: No Reported Reaction Past Psychological History: No Psychological Hx Reported Smoking Status: Never smoker Past Alcohol Use History: None Reported Past Drug Use History: None Reported - Past Family History Father Family Medical History: Cancer Additional Family Medical History / Comment(s): leukemia Mother Family Medical History: Cancer Additional Family Medical History / Comment(s): breast/colon cancer Daughter(s) Family Medical History: Cancer Additional Family Medical History / Comment(s): melanoma Medications and Allergies Home Medications Medication Instructions Recorded Confirmed Type Benazepril/Hydrochlorothiazide 0.5 tab PO HS #0 08/24/15 08/31/21 Rx [Benazepril-Hctz 10-12.5 mg Tab] Warfarin [Coumadin] 5 mg PO SUTUTHSA 11/27/15 08/31/21 History Lovastatin [Mevacor] 20 mg PO HS 05/15/18 08/31/21 History Multivitamin [Men's Multi-Vitamin] 1 tab PO DAILY 05/15/18 08/31/21 History Ascorbic Acid [Vitamin C] 1,000 mg PO DAILY 08/31/21 08/31/21 History Cholecalciferol [Vitamin D3 (25 25 mcg PO DAILY 08/31/21 08/31/21 History Mcg = 1000 Iu)] Furosemide [Lasix] See Taper PO DIRECTED 08/31/21 08/31/21 History Omeprazole 20 mg PO BID 08/31/21 08/31/21 History Warfarin [Coumadin] 2.5 mg PO MOWEFR 08/31/21 08/31/21 History Allergies Allergy/AdvReac Type Severity Reaction Status Date / Time meperidine HCl [From Demerol] Allergy Anaphylaxis Verified 08/31/21 10:46 phenytoin sodium Allergy Rash/Hives Verified 08/31/21 10:46 [From Dilantin] phenytoin sodium extended Allergy Rash/Hives Verified 08/31/21 10:46 [From Dilantin] Physical Exam Vitals: Vital Signs Temp Pulse Resp BP Pulse Ox 08/31/21 09:31 97.5 F L 86 14 124/72 99 08/31/21 08:54 97.1 F L 90 18 127/74 97 Intake and Output 08/30/21 08/31/21 08/31/21 22:59 06:59 14:59 Other: Weight 68.039 kg Results 09/01/21 06:32 09/01/21 06:32 Cardiac Enzymes 08/31/21 08/31/21 08/31/21 Range/Units 09:11 09:11 11:28 AST 43 (17-59) U/L Troponin I 0.038 H* 0.031 (0.000-0.034) ng/mL Coagulation 08/31/21 Range/Units 09:11 PT 55.4 H (9.0-12.0) sec APTT 35.1 H (22.0-30.0) sec CBC 08/31/21 Range/Units 09:11 WBC 6.5 (3.8-10.6) k/uL RBC 3.48 L (4.30-5.90) m/uL Hgb 11.9 L (13.0-17.5) gm/dL Hct 34.8 L (39.0-53.0) % Plt Count 172 (150-450) k/uL Comprehensive Metabolic Panel 08/31/21 Range/Units 09:11 Sodium 124 L (137-145) mmol/L Potassium 5.0 (3.5-5.1) mmol/L Chloride 93 L (98-107) mmol/L Carbon Dioxide 19 L (22-30) mmol/L BUN 57 H (9-20) mg/dL Creatinine 2.26 H (0.66-1.25) mg/dL Glucose 94 (74-99) mg/dL Calcium 9.4 (8.4-10.2) mg/dL AST 43 (17-59) U/L ALT 40 (4-49) U/L Alkaline Phosphatase 133 H (38-126) U/L Total Protein 7.9 (6.3-8.2) g/dL Albumin 4.0 (3.5-5.0) g/dL Current Medications Generic Name Dose Route Start Last Admin Trade Name Freq PRN Reason Stop Dose Admin Acetaminophen 650 mg 08/31/21 12:52 Acetaminophen Tab 325 Mg Tab PO Q6HR PRN Mild Pain or Fever > 100.5 Al Hydroxide/Mg Hydroxide 15 ml 08/31/21 12:52 Mag Hydrox/Al Hydrox/Simeth 30 Ml Cup PO Q6HR PRN Indigestion Atorvastatin Calcium 10 mg 08/31/21 21:00 Atorvastatin 10 Mg Tab PO HS FLACO Furosemide 40 mg 09/01/21 09:00 Furosemide 10 Mg/Ml 4 Ml Vial IV DAILY FLACO Ceftriaxone Sodium 1 gm/ 50 mls @ 100 mls/hr 08/31/21 13:00 08/31/21 13:39 Sodium Chloride IVPB 100 mls/hr Q24HR FLACO Administration Azithromycin 500 mg/ Sodium 250 mls @ 250 mls/hr 09/01/21 09:00 Chloride IVPB DAILY FLACO Loperamide HCl 2 mg 08/31/21 12:52 Loperamide 2 Mg Cap PO Q2HR PRN Loose Stool Miscellaneous Information 0 each 08/31/21 13:05 Warfarin Per Pharmacy MISCELLANE DIRECTED PRN INR Naloxone HCl 0.2 mg 08/31/21 10:56 Naloxone 0.4 Mg/Ml 1 Ml Vial IV Q2M PRN Opioid Reversal Naloxone HCl 0.2 mg 08/31/21 12:52 Naloxone 0.4 Mg/Ml 1 Ml Vial IV Q2M PRN Opioid Reversal Ondansetron HCl 4 mg 08/31/21 12:52 Ondansetron 4 Mg/2 Ml Vial IVP Q8HR PRN Nausea And Vomiting Warfarin Sodium 0 mg 08/31/21 18:00 Warfarin 0.5 Mg Tab PO 08/31/21 18:01 ONCE@1800 ONE Intake and Output 08/30/21 08/31/21 08/31/21 22:59 06:59 14:59 Other: Weight 68.039 kg Patient Weight 09/01/21 06:59 Weight 68.039 kg 08/31/21 09:11 08/31/21 09:11
[2021-09-01] MEDS ORDERED: WARFARIN 5 MG TAB PO SCH (12:57)
[2021-09-01 15:02] LABS: Appearance,Urine Clear (Clear); Bilirubin,Urine Negative (Negative); Blood,Urine Trace (Negative); Color,Urine Yellow; Glucose,Urine (UA) Negative (Negative); Ketones,Urine Negative (Negative); Leukocyte Esterase,Urine Negative (Negative); Mucus,Urine Rare /hpf; Nitrite,Urine Negative (Negative); Protein,Urine Negative (Negative); RBC,Urine 1 /hpf (0-5); Specific Gravity,Urine 1.007 (1.001-1.035); Urobilinogen,Urine <2.0 mg/dL (<2.0)
[2021-09-01 16:34] LABS: Glucose,Whole Blood 155 mg/dL (75-99)
[2021-09-01] MEDS ORDERED: WARFARIN 0.5 MG TAB PO ONE (18:00)
[2021-09-01 20:19] LABS: Glucose,Whole Blood 121 mg/dL (75-99)
[2021-09-01] MEDS: ATORVASTATIN 10 MG TAB PO SCH (20:24)
[2021-09-02 05:49] LABS: Glucose,Whole Blood 105 mg/dL (75-99)
[2021-09-02 07:37] LABS: Basophils % (A) 1 %; Eosinophils # (A) 0.3 k/uL (0-0.7); Eosinophils % (A) 4 %; HCT 36.4 % (39.0-53.0); Lymphocytes # (A) 0.5 k/uL (1.0-4.8); Lymphocytes % (A) 7 %; MCH 33.4 pg (25.0-35.0); MCHC 32.9 g/dL (31.0-37.0); MCV 101.3 fL (80.0-100.0); Mean Platelet Volume 8.8; Monocytes # (A) 0.6 k/uL (0-1.0); Monocytes % (A) 9 %; Neutrophils # (A) 5.3 k/uL (1.3-7.7); Neutrophils % (A) 77 %; Platelet Count 185 k/uL (150-450); RDW 12.8 % (11.5-15.5); WBC 6.9 k/uL (3.8-10.6)
[2021-09-02 07:40] LABS: INR 2.9 (<1.2); Prothrombin Time 28.7 sec (9.0-12.0)
[2021-09-02 08:05] LABS: Albumin 3.8 g/dL (3.5-5.0); Calcium 9.4 mg/dL (8.4-10.2); Potassium 4.3 mmol/L (3.5-5.1); Total Bilirubin 2.4 mg/dL (0.2-1.3); Total Protein 7.6 g/dL (6.3-8.2)
[2021-09-02] MEDS: AZITHROMYCIN 500 MG in SODIUM CHLORIDE 0.9% 250 ML IVPB SCH ×2 (09:00→09:46)
[2021-09-02] MEDS: FUROSEMIDE 10 MG/ML 4 ML VIAL IV SCH (09:01)
--- NOTE | 2021-09-02 10:41 | P.PN ---
Subjective Progress Note Date: 09/02/21 Principal diagnosis: Patient feels better today more awake and alert 81-year-old male with past medical history of aortic valve replacement congestive heart failure hypertension admitted to the hospital with increased shortness of breath that has been going for the last couple weeks or so getting worse Patient is very hard of hearing family states that the patient has been having chills around a week to 10 days ago and sweating Was tested for Covid at that time and it was negative Denies any chest pain but states that the shortness of breath gets worse with any exertion Review of systems since systems has been reviewed all negative and positive findings as per history of present illness Constitutional: No acute distress, conversant, pleasant Eyes: Anicteric sclerae, moist conjunctiva, no lid-lag PERRLA ENMT: NC/AT Oropharynx clear, no erythema, exudates Neck: Supple, FROM, no masses, or JVD No carotid bruits No thyromegaly Lungs: Crackly, no accessory muscle use Cardiovascular: Heart regular in rate and rhythm, No murmurs, gallops, or rubs No peripheral edema Abdominal: Soft Nontender, no guarding, rebound or rigidity Abdomen moving with respiration Normoactive bowel sounds No hepatomegaly, No splenomegaly No palpable mass No abdominal wall hernia noted Skin: Normal temperature, tone, texture, turgor No induration No subcutaneous nodules No rash, lesions No ulcers Extremities: No digital cyanosis No clubbing Pedal pulses intact and symmetrical Radial pulses intact and symmetrical Normal gait and station No calf tenderness Psychiatric:Alert and oriented to person, place and time Appropriate affect Intact judgement Neuro: Muscles Strength 5/5 in all 4 extremities Sensation to light touch grossly present throughout Cranial nerves II-XII grossly intact No focal sensory deficits Likely acute on chronic diastolic congestive heart failure we'll start the patient on IV Lasix Will monitor kidney function closely Acute renal failure Baseline is not clear monitor continue Lasix but monitor kidney function closely Creatinine IS SLOWLY IMPROVING WE'LL CONSULT NEPHROLOGY Elevated INR patient does have aortic valve replacement Generalized weakness Fever and chills we'll start the patient improved on IV antibiotics for suspected pneumonia as the patient does have pleural effusions Covid test has been rechecked will monitor Overall slowly improving we'll continue current treatment Overall improved but the creatinine still around to consult nephrology Objective - Vital Signs Vital signs: Vital Signs Temp 98.9 F 09/02/21 08:58 Pulse 93 09/02/21 08:58 Resp 17 09/02/21 08:58 BP 112/68 09/02/21 08:58 Pulse Ox 95 09/02/21 08:58 Intake & Output 09/01/21 09/02/21 09/02/21 18:59 06:59 18:59 Intake Total 240 250 Output Total 225 650 Balance 15 -400 Weight 63.9 kg Intake: Oral 240 250 Output: Urine 225 650 Other: Voiding Method Toilet Toilet Urinal Urinal # Voids 2 - Labs CBC & Chem 7: 09/02/21 06:43 09/02/21 06:43 Labs: Abnormal Lab Results - Last 24 Hours (Table) 09/01/21 09/01/21 09/01/21 Range/Units 11:23 13:26 16:32 RBC (4.30-5.90) m/uL Hgb (13.0-17.5) gm/dL Hct (39.0-53.0) % MCV (80.0-100.0) fL Lymphocytes # (1.0-4.8) k/uL PT (9.0-12.0) sec INR (<1.2) Sodium (137-145) mmol/L Chloride (98-107) mmol/L BUN (9-20) mg/dL Creatinine (0.66-1.25) mg/dL POC Glucose (mg/dL) 113 H 155 H (75-99) mg/dL Total Bilirubin (0.2-1.3) mg/dL Urine Blood Trace H (Negative) Urine Mucus Rare H (None) /hpf 09/01/21 09/02/21 09/02/21 Range/Units 20:17 05:44 06:43 RBC (4.30-5.90) m/uL Hgb (13.0-17.5) gm/dL Hct (39.0-53.0) % MCV (80.0-100.0) fL Lymphocytes # (1.0-4.8) k/uL PT 28.7 H (9.0-12.0) sec INR 2.9 H (<1.2) Sodium (137-145) mmol/L Chloride (98-107) mmol/L BUN (9-20) mg/dL Creatinine (0.66-1.25) mg/dL POC Glucose (mg/dL) 121 H 105 H (75-99) mg/dL Total Bilirubin (0.2-1.3) mg/dL Urine Blood (Negative) Urine Mucus (None) /hpf 09/02/21 09/02/21 Range/Units 06:43 06:43 RBC 3.60 L (4.30-5.90) m/uL Hgb 12.0 L (13.0-17.5) gm/dL Hct 36.4 L (39.0-53.0) % MCV 101.3 H (80.0-100.0) fL Lymphocytes # 0.5 L (1.0-4.8) k/uL PT (9.0-12.0) sec INR (<1.2) Sodium 126 L (137-145) mmol/L Chloride 93 L (98-107) mmol/L BUN 48 H (9-20) mg/dL Creatinine 2.03 H (0.66-1.25) mg/dL POC Glucose (mg/dL) (75-99) mg/dL Total Bilirubin 2.4 H (0.2-1.3) mg/dL Urine Blood (Negative) Urine Mucus (None) /hpf Microbiology - Last 24 Hours (Table) 08/31/21 13:30 Blood Culture - Preliminary Blood No Growth after 24 hours
--- NOTE | 2021-09-02 10:55 | XR ---
EXAMINATION TYPE: XR chest 1V portable DATE OF EXAM: 09/02/2021 COMPARISON: X-ray dated 08/30/2021 HISTORY: Follow-up CHF TECHNIQUE: Single frontal view of the chest is obtained. FINDINGS: Apparently more prominent pulmonary vascular congestion with prominent interstitial lung markings and apparent progressive infiltration in the left lower lung zone as well as in the right infrahilar loc ation. This could be augmented by the patient's position or incomplete lung expansion however progres sive pulmonary edema or infection cannot be excluded, please correlate clinically. Follow-up should b e considered. Suspected small left pleural effusion. Persistent pericardial calcifications, constrictive pericardit is cannot be excluded, please correlate clinically and with echocardiographic results. Aortic atheros clerotic calcifications. Sternotomy wire sutures. IMPRESSION: Slightly progressive pulmonary edema or infection as detailed above. Please correlate clinically and with echocardiographic results to rule out constrictive pericarditis.
[2021-09-02 11:30] LABS: Glucose,Whole Blood 111 mg/dL (75-99)
--- NOTE | 2021-09-02 12:39 | P.PN ---
Subjective This is a pleasant 81-year-old male past medical history significant for hypertension, dyslipidemia, mechanical aortic valve replacement 02/2000 on liz craig, chronic kidney disease. He follows in the office with Dr. Tompkins. We have been asked to see in consultation for congestive heart failure. Patient presents emergency department due to concerns for abnormal labs. He has been having symptoms of shortness of breath for about 6 months, felt it was getting worse. He also endorses symptoms of chills and night sweats. He presented to his PCP 08/30/21 chest xray and Labs were completed that revealed BNP 4,000 and Sodium 124. Diuretics were increased to 40mg BID and spironolactone was added. Patient was then told to go to the emergency department. He was started on IV Lasix 40mg daily. He states his shortness of breath has slightly improved. -Echocardiogram revealed EF 5560 percent, normal functioning mechanical prosthetic valve, mild mitral regurgitation, tricuspid regurgitation, large pleural effusion, No pericardial effusion. 09/02/2021 Patient seen and examined at bedside, no distress. He denies any chest pain or shortness of breath. His breathing has improved. He has no complaints this morning. His vital signs are stable. Chest xray this morning patient rotated with worsening pulmonary interstital markings and progressive infiltration Labs, WBC 6.9, hemoglobin 12, platelets 185, sodium 126, potassium 4.6, BUN 48, serum creatinine 2.03, INR 2.9, blood cultures negative, UA negative He's currently maintained on atorvastatin 10 mg nightly, Lasix 40 mg IV daily, Coumadin 5 mg PHYSICAL EXAMINATION Vitals reviewed CONSTITUTIONAL: No apparent distress. HEENT:Neck Supple. No JVD. No carotid bruit. CHEST EXAMINATION: Lungs are clear to auscultation. No chest wall tenderness is noted on palpation or with deep breathing. HEART EXAMINATION: Regular rate and rhythm. S1, S2 heard. No murmurs, gallops or rub. ABDOMEN: Soft, nontender. Positive bowel sounds. EXTREMITIES: 2+ peripheral pulses, no lower extremity edema and no calf tenderness. NEUROLOGIC EXAMINATION: Patient is awake, alert and oriented x3. ASSESSMENT Acute on chronic heart failure with preserved ejection fraction Mildly elevated troponin x1, repeat troponins negative, not indicative of acute coronary syndrome Chills, night sweats Supratherapeutic INR Acute kidney injury Chronic kidney disease Hypertension Dyslipidemia History of mechanical aortic valve replacement in 02/2000 PLAN Transition to PO Lasix 40mg BID. From a cardiology perspective, patient appears to be stable. Patient is currently being treated for pneumonia Continue coumadin, based on INR readings Continue home cardiac medications Recommend follow up with Dr. Tompkins Nurse practitioner note has been reviewed by physician. Signing provider agrees with the documented findings, assessment, and plan of care. Objective - Vital Signs Vital signs: Vital Signs Temp 98.1 F 09/02/21 11:41 Pulse 98 09/02/21 11:41 Resp 16 09/02/21 11:41 BP 129/78 09/02/21 11:41 Pulse Ox 98 09/02/21 11:41 Intake & Output 09/01/21 09/02/21 09/02/21 18:59 06:59 18:59 Intake Total 240 250 Output Total 225 650 Balance 15 -400 Weight 63.9 kg Intake: Oral 240 250 Output: Urine 225 650 Other: Voiding Method Toilet Toilet Urinal Urinal # Voids 2 - Labs CBC & Chem 7: 09/02/21 06:43 09/02/21 06:43 Labs: Abnormal Lab Results - Last 24 Hours (Table) 09/01/21 09/01/21 09/01/21 Range/Units 13:26 16:32 20:17 RBC (4.30-5.90) m/uL Hgb (13.0-17.5) gm/dL Hct (39.0-53.0) % MCV (80.0-100.0) fL Lymphocytes # (1.0-4.8) k/uL PT (9.0-12.0) sec INR (<1.2) Sodium (137-145) mmol/L Chloride (98-107) mmol/L BUN (9-20) mg/dL Creatinine (0.66-1.25) mg/dL POC Glucose (mg/dL) 155 H 121 H (75-99) mg/dL Total Bilirubin (0.2-1.3) mg/dL Urine Blood Trace H (Negative) Urine Mucus Rare H (None) /hpf 09/02/21 09/02/21 09/02/21 Range/Units 05:44 06:43 06:43 RBC 3.60 L (4.30-5.90) m/uL Hgb 12.0 L (13.0-17.5) gm/dL Hct 36.4 L (39.0-53.0) % MCV 101.3 H (80.0-100.0) fL Lymphocytes # 0.5 L (1.0-4.8) k/uL PT 28.7 H (9.0-12.0) sec INR 2.9 H (<1.2) Sodium (137-145) mmol/L Chloride (98-107) mmol/L BUN (9-20) mg/dL Creatinine (0.66-1.25) mg/dL POC Glucose (mg/dL) 105 H (75-99) mg/dL Total Bilirubin (0.2-1.3) mg/dL Urine Blood (Negative) Urine Mucus (None) /hpf 09/02/21 09/02/21 Range/Units 06:43 11:29 RBC (4.30-5.90) m/uL Hgb (13.0-17.5) gm/dL Hct (39.0-53.0) % MCV (80.0-100.0) fL Lymphocytes # (1.0-4.8) k/uL PT (9.0-12.0) sec INR (<1.2) Sodium 126 L (137-145) mmol/L Chloride 93 L (98-107) mmol/L BUN 48 H (9-20) mg/dL Creatinine 2.03 H (0.66-1.25) mg/dL POC Glucose (mg/dL) 111 H (75-99) mg/dL Total Bilirubin 2.4 H (0.2-1.3) mg/dL Urine Blood (Negative) Urine Mucus (None) /hpf Microbiology - Last 24 Hours (Table) 08/31/21 13:30 Blood Culture - Preliminary Blood No Growth after 24 hours
[2021-09-02 15:58] LABS: Glucose,Whole Blood 159 mg/dL (75-99)
[2021-09-02] MEDS: FUROSEMIDE 40 MG TAB PO SCH (16:08)
[2021-09-02] MEDS ORDERED: WARFARIN 5 MG TAB PO ONE (18:00)
[2021-09-02] MEDS: ATORVASTATIN 10 MG TAB PO SCH (19:50)
[2021-09-03 07:33] LABS: Basophils % (A) 0 %; Eosinophils # (A) 0.2 k/uL (0-0.7); Eosinophils % (A) 3 %; HCT 34.5 % (39.0-53.0); HGB 11.6 gm/dL (13.0-17.5); Lymphocytes # (A) 0.6 k/uL (1.0-4.8); Lymphocytes % (A) 8 %; MCH 34.1 pg (25.0-35.0); MCHC 33.7 g/dL (31.0-37.0); Mean Platelet Volume 8.9; Monocytes # (A) 0.7 k/uL (0-1.0); Monocytes % (A) 10 %; Neutrophils # (A) 5.3 k/uL (1.3-7.7); Neutrophils % (A) 77 %; Platelet Count 185 k/uL (150-450); RBC 3.41 m/uL (4.30-5.90); RDW 12.8 % (11.5-15.5); WBC 6.8 k/uL (3.8-10.6)
[2021-09-03 07:42] LABS: INR 2.2 (<1.2); Prothrombin Time 21.8 sec (9.0-12.0)
[2021-09-03 07:48] LABS: Albumin 3.6 g/dL (3.5-5.0); Calcium 9.2 mg/dL (8.4-10.2); Potassium 4.2 mmol/L (3.5-5.1); Total Bilirubin 2.3 mg/dL (0.2-1.3); Total Protein 7.1 g/dL (6.3-8.2)
[2021-09-03] MEDS: FUROSEMIDE 40 MG TAB PO SCH (08:43)
[2021-09-03] MEDS ORDERED: AZITHROMYCIN 500 MG TAB PO SCH (09:00)
--- NOTE | 2021-09-03 09:11 | P.NPCON ---
History of Present Illness - Reason for Consult acute renal failure, chronic renal failure - History of Present Illness Reason for consultation: Acute kidney injury and chronic kidney disease History of present illness: Patient is a 81-year-old male seen in renal consultation for acute kidney injury on chronic kidney disease. Patient has chronic kidney disease stage IV with baseline creatinine in the range of 1.8-2. Creatinine was 2.5 on admission and is 1.98 today. Patient presented to the hospital on 08/31/2021 due to abnormal labs. He has also been complaining of shortness of breath. Patient's sodium was low at 124 and he was advised to go to the hospital. Today sodium level is up to 129. He is maintained on oral Lasix 40 mg twice daily. He was receiving IV Lasix prior. No hematuria. No vomiting or diarrhea. Oral intake fair. He is also now on fluid restriction. He was taking thiazide diuretic as an outpatient which is currently held. Echocardiogram revealed diastolic CHF. Chest x-rays suggestive of fluid overload. UA benign. Patient is very hard of hearing. Vital signs are stable. General: The patient appeared well nourished and normally developed. HEENT: Head exam is unremarkable. LUNGS: Breath sounds decreased. HEART: Rate and Rhythm are regular. ABDOMEN: Soft, no distention. EXTREMITITES: No edema. Past Medical History Past Medical History: Cancer, GERD/Reflux, Hyperlipidemia, Hypertension, Skin Disorder Additional Past Medical History / Comment(s): Esophagus problems, anemia, "thin skin", hx skin cancer History of Any Multi-Drug Resistant Organisms: None Reported Past Surgical History: Cardiac Valve Replacement Additional Past Surgical History / Comment(s): "valve removed from esophagus"; aortic valve replacement; brain surgery x2(hematoma from fall), esophageal dilatations, BORA cataract removal Past Anesthesia/Blood Transfusion Reactions: No Reported Reaction Past Psychological History: No Psychological Hx Reported Smoking Status: Never smoker Past Alcohol Use History: None Reported Past Drug Use History: None Reported - Past Family History Father Family Medical History: Cancer Additional Family Medical History / Comment(s): leukemia Mother Family Medical History: Cancer Additional Family Medical History / Comment(s): breast/colon cancer Daughter(s) Family Medical History: Cancer Additional Family Medical History / Comment(s): melanoma Medications and Allergies Home Medications Medication Instructions Recorded Confirmed Type Benazepril/Hydrochlorothiazide 0.5 tab PO HS #0 08/24/15 08/31/21 Rx [Benazepril-Hctz 10-12.5 mg Tab] Warfarin [Coumadin] 5 mg PO SUTUTHSA 11/27/15 08/31/21 History Lovastatin [Mevacor] 20 mg PO HS 05/15/18 08/31/21 History Multivitamin [Men's Multi-Vitamin] 1 tab PO DAILY 05/15/18 08/31/21 History Ascorbic Acid [Vitamin C] 1,000 mg PO DAILY 08/31/21 08/31/21 History Cholecalciferol [Vitamin D3 (25 25 mcg PO DAILY 08/31/21 08/31/21 History Mcg = 1000 Iu)] Furosemide [Lasix] See Taper PO DIRECTED 08/31/21 08/31/21 History Omeprazole 20 mg PO BID 08/31/21 08/31/21 History Warfarin [Coumadin] 2.5 mg PO MOWEFR 08/31/21 08/31/21 History Allergies Allergy/AdvReac Type Severity Reaction Status Date / Time meperidine HCl [From Demerol] Allergy Anaphylaxis Verified 08/31/21 10:46 phenytoin sodium Allergy Rash/Hives Verified 08/31/21 10:46 [From Dilantin] phenytoin sodium extended Allergy Rash/Hives Verified 08/31/21 10:46 [From Dilantin] Physical Exam Vitals: Vital Signs Temp Pulse Pulse Resp BP Pulse Ox 09/03/21 08:42 98.9 F 95 17 124/70 97 09/03/21 04:00 90 16 09/03/21 02:00 94 92 16 09/03/21 00:00 98.7 F 92 16 121/78 93 L 09/02/21 20:00 98.0 F 90 16 109/63 94 L 09/02/21 15:00 99.3 F 94 17 125/72 98 09/02/21 11:41 98.1 F 98 16 129/78 98 Intake and Output 09/02/21 09/03/21 09/03/21 22:59 06:59 14:59 Intake Total 120 Balance 120 Intake: Oral 120 Other: Voiding Method Toilet Toilet Urinal Urinal Weight 66 kg Results - Lab Results Most recent lab results Calcium 9.2 mg/dL (8.4-10.2) 09/03/21 06:33 Magnesium 1.8 mg/dL (1.6-2.3) 08/31/21 09:11 09/03/21 06:37 09/03/21 06:33 Assessment and Plan Plan: Assessment: 1. Acute kidney injury mostly prerenal secondary to cardiorenal syndrome. Cre atinine was 2.5 on admission and is 1.98 today. UA benign. 2. Chronic kidney disease stage IV baseline creatinine in the range of 1.8-2 secondary to nephrosclerosis. 3. Acute on chronic diastolic CHF. 4. Volume overload. 5. Hypervolemic hyponatremia. Worsened with use of thiazide diuretic outp atient. Plan: Maintain current dose of Lasix. Maintain fluid restriction. Check renal ultrasound. Continue to monitor renal function and urine output. Thank you for the consultation. I will continue to follow the patient with you during his hospital stay.
--- NOTE | 2021-09-03 11:33 | US ---
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 Exam done portable EXAM MEASUREMENTS: Right Kidney: 9.1 x 4.6 x 3.9 cm Left Kidney: 10.0 x 4.7 x 3.9 cm Right Kidney: wnl Left Kidney: wnl Bladder: wnl Bilateral Jets seen: yes There is no evidence for hydronephrosis at this point in time. No nephrolithiasis is seen. No mitch s are identified. The urinary bladder is anechoic. Bilateral ureteral jets are seen. IMPRESSION: Within normal limits
--- NOTE | 2021-09-03 11:36 | P.DS ---
Providers Date of admission: 08/31/21 10:56 Expected date of discharge: 09/03/21 Attending physician: Evelia Christopher DO Consults: 08/31/21 10:57 Consult Physician Urgent Consulting Provider: [facility] Consult Reason/Comments: acute exacerbation of chf Do you want consulting provider notified?: Yes 09/02/21 10:42 Consult Physician Routine Consulting Provider: Everardo Walters Consult Reason/Comments: renal failure Do you want consulting provider notified?: Yes Primary care physician: Lady Shabazz MD Hospital Course: 81-year-old male with multiple medical problems admitted to the hospital with weakness shortness of breath patient did have suspected pneumonia treated with IV antibiotics after which the condition of the patient improved the patient also has been evaluated by nephrology and cardiology in the hospital due to pleural effusions and CHF and renal failure renal failure was thought to be chronic acute on chronic which has been stable Constitutional: No acute distress, conversant, pleasant Eyes: Anicteric sclerae, moist conjunctiva, no lid-lag PERRLA ENMT: NC/AT Oropharynx clear, no erythema, exudates Neck: Supple, FROM, no masses, or JVD No carotid bruits No thyromegaly Lungs: Clear to auscultation Clear to percussion Normal respiratory effort, no accessory muscle use Cardiovascular: Heart regular in rate and rhythm, No murmurs, gallops, or rubs No peripheral edema Abdominal: Soft Nontender, no guarding, rebound or rigidity Abdomen moving with respiration Normoactive bowel sounds No hepatomegaly, No splenomegaly No palpable mass No abdominal wall hernia noted Skin: Normal temperature, tone, texture, turgor No induration No subcutaneous nodules No rash, lesions No ulcers Extremities: No digital cyanosis No clubbing Pedal pulses intact and symmetrical Radial pulses intact and symmetrical Normal gait and station No calf tenderness Psychiatric:Alert and oriented to person, place and time Appropriate affect I ntact judgement Neuro: Muscles Strength 5/5 in all 4 extremities Sensation to light touch grossly present throughout Cranial nerves II-XII grossly intact No focal sensory deficits Discharge plan Suspected pneumonia clinically resolved to continue Omnicef Chronic diastolic congestive heart failure acute on chronic currently stable Acute renal failure on CK D stable follow-up with nephrology Patient Condition at Discharge: Stable Plan - Discharge Summary Discharge Rx Participant: Yes New Discharge Prescriptions: New Cefdinir [Omnicef] 300 mg PO Q12HR 7 Days #14 capsule Continue Benazepril/Hydrochlorothiazide [Benazepril-Hctz 10-12.5 mg Tab] 0.5 tab PO HS #0 Warfarin [Coumadin] 5 mg PO SUTUTHSA Lovastatin [Mevacor] 20 mg PO HS Multivitamin [Men's Multi-Vitamin] 1 tab PO DAILY Cholecalciferol [Vitamin D3 (25 Mcg = 1000 Iu)] 25 mcg PO DAILY Warfarin [Coumadin] 2.5 mg PO MOWEFR Omeprazole 20 mg PO BID Furosemide [Lasix] See Taper PO DIRECTED Ascorbic Acid [Vitamin C] 1,000 mg PO DAILY Discharge Medication List Benazepril/Hydrochlorothiazide [Benazepril-Hctz 10-12.5 mg Tab] 0.5 tab PO HS #0 08/24/15 [Rx] Warfarin [Coumadin] 5 mg PO SUTUTHSA 11/27/15 [History] Lovastatin [Mevacor] 20 mg PO HS 05/15/18 [History] Multivitamin [Men's Multi-Vitamin] 1 tab PO DAILY 05/15/18 [History] Ascorbic Acid [Vitamin C] 1,000 mg PO DAILY 08/31/21 [History] Cholecalciferol [Vitamin D3 (25 Mcg = 1000 Iu)] 25 mcg PO DAILY 08/31/21 [History] Furosemide [Lasix] See Taper PO DIRECTED 08/31/21 [History] Omeprazole 20 mg PO BID 08/31/21 [History] Warfarin [Coumadin] 2.5 mg PO MOWEFR 08/31/21 [History] Cefdinir [Omnicef] 300 mg PO Q12HR 7 Days #14 capsule 09/03/21 [Rx] Follow up Appointment(s)/Referral(s): Lady Shabazz MD [Primary Care Provider] - 1-2 days Lady Tompkins MD [STAFF PHYSICIAN] - 3 Weeks Discharge Disposition: HOME SELF-CARE
[2021-09-03 11:38] VITALS: BP 138/72; PULSE 96; RESP 16; TEMP 98.2
[2021-09-03] MEDS ORDERED: WARFARIN 5 MG TAB PO ONE (18:00)
== END 2021-09-03 13:15 | disposition home or self-care (01) | DRG 291 ==
LOC: EC 08:53 → 3SCARD 10:56
PROVIDERS: ADMIT Internal Medicine; ATTEND Internal Medicine
DX: I13.0 Hypertensive heart and chronic kidney disease with heart failure and stage 1 through stage 4 chronic kidney disease, or unspecified chronic kidney disease (principal); I50.33 Acute on chronic diastolic (congestive) heart failure; J18.9 Pneumonia, unspecified organism; N17.9 Acute kidney failure, unspecified; N18.4 Chronic kidney disease, stage 4 (severe); E87.1 Hypo-osmolality and hyponatremia; R79.1 Abnormal coagulation profile; Z20.822 Contact with and (suspected) exposure to COVID-19; I08.1 Rheumatic disorders of both mitral and tricuspid valves; H91.90 Unspecified hearing loss, unspecified ear; E78.5 Hyperlipidemia, unspecified; K21.9 Gastro-esophageal reflux disease without esophagitis; R77.8 Other specified abnormalities of plasma proteins; Z98.890 Other specified postprocedural states; Z98.42 Cataract extraction status, left eye; Z98.41 Cataract extraction status, right eye; Z79.01 Long term (current) use of anticoagulants; Z79.899 Other long term (current) drug therapy; Z80.0 Family history of malignant neoplasm of digestive organs; Z80.6 Family history of leukemia; Z80.8 Family history of malignant neoplasm of other organs or systems; Z85.828 Personal history of other malignant neoplasm of skin; Z95.2 Presence of prosthetic heart valve; Z88.1 Allergy status to other antibiotic agents; Z88.8 Allergy status to other drugs, medicaments and biological substances; Z80.3 Family history of malignant neoplasm of breast
CPT/HCPCS: 36415; 71045; 71046; 76770; 80048; 80053; 81001; 82306; 83735; 83880; 83970; 84443; 84484; 85025; 85610; 85730; 87040; 87635; 93005; 93306; 99285

== ENCOUNTER → 2021-09-13 | Outpatient (CLI) | payer MEDICARE ==
[2021-09-13 15:18] LABS: African American GFR (CKD) 36.4 (60.0-200.0); Anion Gap 12.5 mmol/L (10.00-18.00); BUN/Creat Ratio 13.5 Ratio (12.00-20.00); Blood Urea Nitrogen 26.6 mg/dL (9.0-27.0); Calcium 9.9 mg/dL (8.7-10.3); Carbon Dioxide 25.1 mmol/L (20.0-27.5); Non-African American GFR(CKD) 31.4 (60.0-200.0); Potassium 4.5 mmol/L (3.5-5.5)
== END | disposition home or self-care (01) ==
LOC: LABWHC1 10:01
PROVIDERS: ATTEND Nurse Practitioner Adult Health
DX: N18.9 Chronic kidney disease, unspecified (principal); R06.02 Shortness of breath
CPT/HCPCS: 36415; 80048; 83880

== ENCOUNTER 2021-09-21 14:09 | Emergency (ER) | payer MEDICARE ==
[2021-09-21 14:48] VITALS: RESP 18
[2021-09-21] MEDS ORDERED: SODIUM CHLORIDE 0.9% 1,000 ML IV STA (15:21)
--- NOTE | 2021-09-21 15:32 | ED ---
General Adult HPI - General Chief complaint: Recheck/Abnormal Lab/Rx Stated complaint: Low Sodium, Jaundice Time Seen by Provider: 09/21/21 15:01 Source: patient, family Mode of arrival: wheelchair Limitations: no limitations - History of Present Illness Initial comments: Dictation was produced using [employer] dictation software. please excuse any gra mmatical, word or spelling errors. Chief Complaint: 81-year-old male presents with outpatient metabolic abnormalities History of Present Illness: 81-year-old male who presents emergency department for elevated abnormal outpatient labs. Patient was recently admitted to the hospital for what son describes as hepatorenal syndrome. He was admitted for approximately 4-5 days discharge. He is made all his follow-up appointments in the last several weeks. Patient followed up with nephrology today. He had labs drawn at the nephrologists office. Couple hours prior to arrival received a call from the nephrology office to come to the emergency department for low sodium level and elevated bilirubin level. Son who who is very knowledgeable about his father's medical history states that he's been seemingly more weak over the past several days. He does have history of gallbladder stones. Patient denies any pain. He states that he feels fine. Review of systems according to the patient is negative. Over the last week fell members noted that patient is anicteric. The ROS documented in this emergency department record has been reviewed and confirmed by me. Those systems with pertinent positive or negative responses have been documented in the HPI. All other systems are other negative and/or noncontributory. PHYSICAL EXAM: General Impression: Alert and oriented x3, not in acute distress, icteric, jaundiced HEENT: Normocephalic atraumatic, extra-ocular movements intact, pupils equal and reactive to light bilaterally, dry mucous membranes Cardiovascular: Heart regular rate and rhythm Chest: Able to complete full sentences, no retractions, no tachypnea Abdomen: abdomen soft, non-tender, non-distended, no organomegaly, negative Islas sign Musculoskeletal: Pulses present and equal in all extremities, no peripheral edema Motor: no focal deficits noted Neurological: CN II-XII grossly intact, no focal motor or sensory deficits noted Skin: jaundice Psych: Normal affect and mood ED course: 81-year-old male presents to the emergency department for metabolic derangement. Upon arrival are within acceptable limits. Chart review was performed. We do not have access to the laboratory values from nephrology lab. Patient is well-appearing at the bedside with stable vital signs. He is clearly jaundiced does not have any abdominal tenderness. Laboratory evaluation obtained. No leukocytosis. Coag panel shows INR 3.7. Sodium is 120. Elevated renal markers. Patient has history of acute kidney injury. Renal markers. Be elevated compared to patient's baseline. Total bilirubin is 19.7 with predilection to conjugated bilirubin. This suggests extrahepatic bile obstruction. Elevated liver markers. Lipase 319. Patient given intravenous fluids. Abdominal ultrasound shows cholelithiasis without convincing sonographic evidence for acute cholecystitis. Hepatic steatosis. Incidental pancreatic calcification most likely representing chronic change. There is a calcification to the tail of the pancreas. Gallbladder shows sludge with multiple shadowing stones a mildly thickened wall. CBD within normal limits. EKG interpretation: Ventricular rate 79, sinus rhythm, OR interval 140, Q's 86, QTC 411. No OR prolongation, no QTC prolongation, no ST or T-wave changes noted. EKG compared to 08/31/2021 showing no changes. Overall, this EKG is u nremarkable Case was discussed with on-call surgeon Dr. Vela who reports patient is to be transferred for GI workup and GI evaluation. We do not have GI coverage this week. Patient is agreeable for transfer to [facility]. Spoke with Dr. Cortes who is willing to accept patients care for urinary ER transfer. Patient reevaluated bedside at 7:05 PM in stable medical condition. At this point there is no clear indication for antibiotic and ministrations given that patient is no right upper quadrant pain and no elevated inflammatory markers and afebrile. - Related Data Home Medications Medication Instructions Recorded Confirmed Warfarin [Coumadin] 5 mg PO DIRECTED 11/27/15 09/21/21 Lovastatin [Mevacor] 20 mg PO HS 05/15/18 09/21/21 Multivitamin [Men's Multi-Vitamin] 1 tab PO HS 05/15/18 09/21/21 Cholecalciferol [Vitamin D3 (25 25 mcg PO DAILY 08/31/21 09/21/21 Mcg = 1000 Iu)] Furosemide [Lasix] 20 mg PO MOTUWEFRSA 08/31/21 09/21/21 Warfarin [Coumadin] 2.5 mg PO DIRECTED 08/31/21 09/21/21 Benazepril [Lotensin] 10 mg PO DAILY 09/20/21 09/21/21 Ascorbic Acid [Vitamin C chew] 500 mg PO HS 09/21/21 09/21/21 Omeprazole 20 mg PO DAILY 09/21/21 09/21/21 Allergies Allergy/AdvReac Type Severity Reaction Status Date / Time meperidine HCl [From Demerol] Allergy Anaphylaxis Verified 09/21/21 15:59 phenytoin sodium Allergy Rash/Hives Verified 09/21/21 15:59 [From Dilantin] phenytoin sodium extended Allergy Rash/Hives Verified 09/21/21 15:59 [From Dilantin] Review of Systems ROS Statement: Those systems with pertinent positive or pertinent negative responses have been documented in the HPI. ROS Other: All systems not noted in ROS Statement are negative. 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" @ 22 yrs old; aortic valve replacement (1999); brain surgery x2(subdural hematoma from fall), esophageal dilations, BORA cataract removal Past Anesthesia/Blood Transfusion Reactions: No Reported Reaction Past Psychological History: No Psychological Hx Reported Smoking Status: Former smoker Past Alcohol Use History: None Reported Past Drug Use History: None Reported - Past Family History Father Family Medical History: Cancer Additional Family Medical History / Comment(s): leukemia Mother Family Medical History: Cancer Additional Family Medical History / Comment(s): breast/colon cancer Daughter(s) Family Medical History: Cancer Additional Family Medical History / Comment(s): melanoma General Exam Limitations: no limitations Course Vital Signs 09/21/21 09/21/21 14:43 16:36 Pulse Rate 75 78 Respiratory 18 18 Rate Blood Pressure 102/56 93/63 O2 Sat by Pulse 100 96 Oximetry Medical Decision Making - Lab Data Result diagrams: 09/21/21 15:28 09/21/21 16:17 Lab Results 09/21/21 09/21/21 09/21/21 Range/Units 15:28 15:28 15:28 WBC 6.7 (3.8-10.6) k/uL RBC 4.07 L (4.30-5.90) m/uL Hgb 13.9 (13.0-17.5) gm/dL Hct 41.6 (39.0-53.0) % MCV 102.4 H (80.0-100.0) fL MCH 34.2 (25.0-35.0) pg MCHC 33.4 (31.0-37.0) g/dL RDW 13.8 (11.5-15.5) % Plt Count 184 (150-450) k/uL MPV 10.2 Neutrophils % 75 % Lymphocytes % 10 % Monocytes % 9 % Eosinophils % 3 % Basophils % 0 % Neutrophils # 5.0 (1.3-7.7) k/uL Lymphocytes # 0.7 L (1.0-4.8) k/uL Monocytes # 0.6 (0-1.0) k/uL Eosinophils # 0.2 (0-0.7) k/uL Basophils # 0.0 (0-0.2) k/uL Macrocytosis Slight PT 36.5 H (9.0-12.0) sec INR 3.7 H (<1.2) APTT 24.7 (22.0-30.0) sec Sodium (137-145) mmol/L Potassium (3.5-5.1) mmol/L Chloride (98-107) mmol/L Carbon Dioxide (22-30) mmol/L Anion Gap mmol/L BUN (9-20) mg/dL Creatinine (0.66-1.25) mg/dL Est GFR (CKD-EPI)AfAm (>60 ml/min/1.73 sqM) Est GFR (CKD-EPI)NonAf (>60 ml/min/1.73 sqM) Glucose (74-99) mg/dL Lactic Ac Sepsis Rflx Plasma Lactic Acid Jay 2.1 H* (0.7-2.0) mmol/L Calcium (8.4-10.2) mg/dL Magnesium (1.6-2.3) mg/dL Total Bilirubin (0.2-1.3) mg/dL Conjugated Bilirubin (0.0-0.3) mg/dL Unconjugated Bilirubin (0.0-1.1) mg/dL Delta Bilirubin (0.0-0.2) mg/dL AST (17-59) U/L ALT (4-49) U/L Alkaline Phosphatase (38-126) U/L Total Protein (6.3-8.2) g/dL Albumin (3.5-5.0) g/dL Lipase (23-300) U/L 09/21/21 09/21/21 Range/Units 16:16 16:17 WBC (3.8-10.6) k/uL RBC (4.30-5.90) m/uL Hgb (13.0-17.5) gm/dL Hct (39.0-53.0) % MCV (80.0-100.0) fL MCH (25.0-35.0) pg MCHC (31.0-37.0) g/dL RDW (11.5-15.5) % Plt Count (150-450) k/uL MPV Neutrophils % % Lymphocytes % % Monocytes % % Eosinophils % % Basophils % % Neutrophils # (1.3-7.7) k/uL Lymphocytes # (1.0-4.8) k/uL Monocytes # (0-1.0) k/uL Eosinophils # (0-0.7) k/uL Basophils # (0-0.2) k/uL Macrocytosis PT (9.0-12.0) sec INR (<1.2) APTT (22.0-30.0) sec Sodium 120 L (137-145) mmol/L Potassium 4.4 (3.5-5.1) mmol/L Chloride 89 L (98-107) mmol/L Carbon Dioxide 20 L (22-30) mmol/L Anion Gap 11 mmol/L BUN 62 H (9-20) mg/dL Creatinine 2.84 H (0.66-1.25) mg/dL Est GFR (CKD-EPI)AfAm 23 (>60 ml/min/1.73 sqM) Est GFR (CKD-EPI)NonAf 20 (>60 ml/min/1.73 sqM) Glucose 95 (74-99) mg/dL Lactic Ac Sepsis Rflx Y Plasma Lactic Acid Jay (0.7-2.0) mmol/L Calcium 8.2 L (8.4-10.2) mg/dL Magnesium 1.9 (1.6-2.3) mg/dL Total Bilirubin 19.7 H* (0.2-1.3) mg/dL Conjugated Bilirubin 14.1 H (0.0-0.3) mg/dL Unconjugated Bilirubin 2.5 H (0.0-1.1) mg/dL Delta Bilirubin 3.1 H (0.0-0.2) mg/dL AST 113 H (17-59) U/L ALT 88 H (4-49) U/L Alkaline Phosphatase 301 H (38-126) U/L Total Protein 7.0 (6.3-8.2) g/dL Albumin 3.2 L (3.5-5.0) g/dL Lipase 319 H (23-300) U/L Disposition Clinical Impression: Jaundice Disposition: OTHER INSTITUTION NOT DEFINED Condition: Fair Referrals: Lady Sahbazz MD [Primary Care Provider] - 1-2 days - Out of Hospital Transfer - Req. Specs Out of Hospital Transfer - Requested Specifics: Other Emergency Center ([facility])
[2021-09-21 15:49] LABS: Basophils % (A) 0 %; Eosinophils # (A) 0.2 k/uL (0-0.7); Eosinophils % (A) 3 %; HCT 41.6 % (39.0-53.0); HGB 13.9 gm/dL (13.0-17.5); Lymphocytes # (A) 0.7 k/uL (1.0-4.8); Lymphocytes % (A) 10 %; MCH 34.2 pg (25.0-35.0); MCHC 33.4 g/dL (31.0-37.0); MCV 102.4 fL (80.0-100.0); Macrocytosis Slight; Mean Platelet Volume 10.2; Monocytes # (A) 0.6 k/uL (0-1.0); Monocytes % (A) 9 %; Neutrophils % (A) 75 %; Platelet Count 184 k/uL (150-450); RBC 4.07 m/uL (4.30-5.90); RDW 13.8 % (11.5-15.5); WBC 6.7 k/uL (3.8-10.6)
[2021-09-21 16:10] LABS: INR 3.7 (<1.2); Partial Thromboplastin Time 24.7 sec (22.0-30.0); Prothrombin Time 36.5 sec (9.0-12.0)
[2021-09-21 16:41] VITALS: PULSE 78
[2021-09-21 16:56] LABS: Albumin 3.2 g/dL (3.5-5.0); Bilirubin, Conjugated 14.1 mg/dL (0.0-0.3); Bilirubin, Delta 3.1 mg/dL (0.0-0.2); Bilirubin,Unconjugated 2.5 mg/dL (0.0-1.1); Calcium 8.2 mg/dL (8.4-10.2); Magnesium 1.9 mg/dL (1.6-2.3); Potassium 4.4 mmol/L (3.5-5.1)
[2021-09-21 17:02] LABS: Total Bilirubin 19.7 mg/dL (0.2-1.3)
--- NOTE | 2021-09-21 18:05 | US ---
EXAMINATION TYPE: US abdomen limited DATE OF EXAM: 09/21/2021 COMPARISON: renal US CLINICAL HISTORY: liver and gallbladder. EC patient with severe jaundice and known gallstones; hx of skin CA and bowel polyp CA; brother had history of pancreatic duct stone; EXAM MEASUREMENTS: Liver Length: 14.0 cm Gallbladder Wall: 0.4 cm CBD: 0.4 cm Right Kidney: 8.6 x 4.6 x 4.5 cm Pancreas: shadowing calcification noted mid to tail of pancreas 0.7 x 0.6 x 0.4cm Liver: hyperechoic with posterior right lobe attenuation suggests fatty liver Gallbladder: sludge, multiple shadowing stones, and mildly thickened wall are seen Evidence for sonographic Islas's sign: no CBD: wnl Right Kidney: No hydronephrosis or masses seen IMPRESSION: Cholelithiasis without convincing sonographic evidence for acute cholecystitis. Hepatic steatosis. Incidental pancreatic calcification most likely representing chronic change.
[2021-09-21 19:09] VITALS: BP 99/56
== END 2021-09-21 20:49 | disposition other institution (70) ==
LOC: EC 14:09
DX: R17 Unspecified jaundice (principal); I10 Essential (primary) hypertension; E78.5 Hyperlipidemia, unspecified; K21.9 Gastro-esophageal reflux disease without esophagitis; Z87.891 Personal history of nicotine dependence; Z79.01 Long term (current) use of anticoagulants; Z79.899 Other long term (current) drug therapy
CPT/HCPCS: 36415; 76705; 80053; 82248; 83605; 83690; 83735; 85025; 85610; 85730; 93005; 96360; 99285

== ENCOUNTER 2021-10-12 17:52 | Inpatient (IN) | payer MEDICARE ==
[2021-10-12] MEDS ORDERED: DILTIAZEM DRIP BOLUS FROM BAG 1 MG SOLN IV ONE (18:43)
--- NOTE | 2021-10-12 18:44 | ED ---
Arrhythmia/Palpitations HPI - General Chief Complaint: Arrhythmia/Palpitations Stated Complaint: Irregular heart rate Time Seen by Provider: 10/12/21 18:23 Source: patient, family Mode of arrival: wheelchair - History of Present Illness Initial Comments: Curtis is a 81yo M with extensive past medical history most significant for recent prolonged admission due to development of hepatorenal syndrome. Patient was discharged couple weeks ago for [facility] he subsequently has followed with GI as well as his primary care. Been seeing his primary care today it was found that he was tachycardic with a heart rate in the 140s to 160s. According to medical record the patient does have a history of paroxysmal atrial fibrillation but is not medicated for this. He is on Coumadin due to a bioprosthetic aortic valve. Patient was not complaining of any chest pain or palpitations. Primary care contacted cardiology who advised the patient come to the hospital for further management. - Related Data Home Medications Medication Instructions Recorded Confirmed Warfarin [Coumadin] 5 mg PO SUTUTHSA 11/27/15 10/12/21 Warfarin [Coumadin] 2.5 mg PO MOWEFR 08/31/21 10/12/21 Furosemide [Lasix] 40 mg PO DAILY 10/12/21 10/12/21 Midodrine [ProAmatine] 5 - 10 mg PO DIRECTED PRN 10/12/21 10/12/21 Sodium Bicarbonate Tab 1,300 mg PO TID@0800,1200,1530 10/12/21 10/12/21 Allergies Allergy/AdvReac Type Severity Reaction Status Date / Time meperidine HCl [From Demerol] Allergy Anaphylaxis Verified 10/12/21 21:28 phenytoin sodium Allergy Rash/Hives Verified 10/12/21 21:28 [From Dilantin] phenytoin sodium extended Allergy Rash/Hives Verified 10/12/21 21:28 [From Dilantin] Review of Systems ROS Statement: Those systems with pertinent positive or pertinent negative responses have been documented in the HPI. ROS Other: All systems not noted in ROS Statement are negative. Past Medical History Past Medical History: Cancer, GERD/Reflux, Hyperlipidemia, Hypertension, Pneumo rayne, Renal Disease, Skin Disorder Additional Past Medical History / Comment(s): dysphagia., anemia, hx skin cancer, colon polyp, , hx fall with subdural hematoma surgery History of Any Multi-Drug Resistant Organisms: None Reported Past Surgical History: Cardiac Valve Replacement Additional Past Surgical History / Comment(s): "valve removed from esophagus" @ 22 yrs old; aortic valve replacement (1999); brain surgery x2(subdural hematoma from fall), esophageal dilations, BORA cataract removal Past Anesthesia/Blood Transfusion Reactions: No Reported Reaction Past Psychological History: No Psychological Hx Reported Smoking Status: Former smoker Past Alcohol Use History: None Reported Past Drug Use History: None Reported - Past Family History Father Family Medical History: Cancer Additional Family Medical History / Comment(s): leukemia Mother Family Medical History: Cancer Additional Family Medical History / Comment(s): breast/colon cancer Daughter(s) Family Medical History: Cancer Additional Family Medical History / Comment(s): melanoma General Exam - General Exam Comments Initial Comments: Physical Exam GENERAL: Ill appearing Jaundice HENT: atraumatic EYES: Scleral icterus PULMONARY: Unlabored respirations CARDIOVASCULAR: irregular iregular, tachycardic ABDOMEN: Soft, distended SKIN: Jaundiced : Deferred NEUROLOGIC: Hard of hearing, alert, oriented to self MUSCULOSKELETAL: Diffuse atrophy PSYCHIATRIC: Appropriate psychiatric evaluation. Course Vital Signs 10/12/21 10/12/21 10/12/21 18:14 19:32 19:55 Temperature 97 F L Pulse Rate 139 H 148 H 140 H Respiratory 20 16 16 Rate Blood Pressure 129/83 115/99 O2 Sat by Pulse 97 96 92 L Oximetry EKG Findings - EKG Comments: EKG Findings:: EKG was obtained at 1805 rate is 150 rhythm is narrow complex irregular rhythm consistent with an atrial fibrillation with RVR. ST depre ssions laterally no acute ST elevations. Likely ischemia related to demand. No acute infarction. Medical Decision Making - Medical Decision Making history was obtained from the primary care physician prior to the patient's arrival The patient was seen and evaluated, this is a ill appearing 81-year-old gentleman who presents today asymptomatic but noted to be in A. fib with RVR with rates ranging between 140s to 160s Cardizem was ordered bolus and drip Labs were obtained there multiple significant abnormalities, the patient's INR is elevated however he has been on Coumadin so uncertain if this is due to only Coumadin or also hepatic failure Cannot accurately document AML score due to the patient taking Coumadin however with an INR of 6 is not score is indicative of a 70% 3 month mortality CODE STATUS was discussed with family, they've not made any decisions but states they do want to discuss this I did medication discussion with palliative care to focus can be on the patient's comfort given the significant morbidity Junie zhao y was open to this idea Patient to be admitted for new onset A. fib with RVR patient care was discussed with Dr. Bond who evaluated the patient at bedside - Lab Data Result diagrams: 10/12/21 18:39 10/12/21 18:57 Lab Results 10/12/21 10/12/21 10/12/21 Range/Units 18:39 18:39 18:39 WBC 7.5 (3.8-10.6) k/uL RBC 3.92 L (4.30-5.90) m/uL Hgb 13.1 (13.0-17.5) gm/dL Hct 40.5 (39.0-53.0) % MCV 103.4 H (80.0-100.0) fL MCH 33.4 (25.0-35.0) pg MCHC 32.3 (31.0-37.0) g/dL RDW 17.7 H (11.5-15.5) % Plt Count 156 (150-450) k/uL MPV 8.6 Neutrophils % 80 % Lymphocytes % 9 % Monocytes % 7 % Eosinophils % 2 % Basophils % 0 % Neutrophils # 6.0 (1.3-7.7) k/uL Lymphocytes # 0.7 L (1.0-4.8) k/uL Monocytes # 0.5 (0-1.0) k/uL Eosinophils # 0.2 (0-0.7) k/uL Basophils # 0.0 (0-0.2) k/uL Anisocytosis Slight Macrocytosis Moderate PT 68.2 H (9.0-12.0) sec INR 6.7 H* (<1.2) APTT 34.7 H (22.0-30.0) sec Sodium (137-145) mmol/L Potassium (3.5-5.1) mmol/L Chloride (98-107) mmol/L Carbon Dioxide (22-30) mmol/L Anion Gap mmol/L BUN (9-20) mg/dL Creatinine (0.66-1.25) mg/dL Est GFR (CKD-EPI)AfAm (>60 ml/min/1.73 sqM) Est GFR (CKD-EPI)NonAf (>60 ml/min/1.73 sqM) Glucose (74-99) mg/dL Calcium (8.4-10.2) mg/dL Magnesium (1.6-2.3) mg/dL Total Bilirubin (0.2-1.3) mg/dL AST (17-59) U/L ALT (4-49) U/L Alkaline Phosphatase (38-126) U/L Troponin I 0.424 H* (0.000-0.034) ng/mL Total Protein (6.3-8.2) g/dL Albumin (3.5-5.0) g/dL TSH (0.465-4.680) mIU/L 10/12/21 Range/Units 18:57 WBC (3.8-10.6) k/uL RBC (4.30-5.90) m/uL Hgb (13.0-17.5) gm/dL Hct (39.0-53.0) % MCV (80.0-100.0) fL MCH (25.0-35.0) pg MCHC (31.0-37.0) g/dL RDW (11.5-15.5) % Plt Count (150-450) k/uL MPV Neutrophils % % Lymphocytes % % Monocytes % % Eosinophils % % Basophils % % Neutrophils # (1.3-7.7) k/uL Lymphocytes # (1.0-4.8) k/uL Monocytes # (0-1.0) k/uL Eosinophils # (0-0.7) k/uL Basophils # (0-0.2) k/uL Anisocytosis Macrocytosis PT (9.0-12.0) sec INR (<1.2) APTT (22.0-30.0) sec Sodium 128 L (137-145) mmol/L Potassium 3.6 (3.5-5.1) mmol/L Chloride 88 L (98-107) mmol/L Carbon Dioxide 25 (22-30) mmol/L Anion Gap 15 mmol/L BUN 35 H (9-20) mg/dL Creatinine 1.82 H (0.66-1.25) mg/dL Est GFR (CKD-EPI)AfAm 40 (>60 ml/min/1.73 sqM) Est GFR (CKD-EPI)NonAf 35 (>60 ml/min/1.73 sqM) Glucose 102 H (74-99) mg/dL Calcium 9.4 (8.4-10.2) mg/dL Magnesium 1.6 (1.6-2.3) mg/dL Total Bilirubin 10.8 H (0.2-1.3) mg/dL AST 139 H (17-59) U/L ALT 65 H (4-49) U/L Alkaline Phosphatase 148 H (38-126) U/L Troponin I (0.000-0.034) ng/mL Total Protein 8.0 (6.3-8.2) g/dL Albumin 4.0 (3.5-5.0) g/dL TSH 2.820 (0.465-4.680) mIU/L Disposition Clinical Impression: Atrial fibrillation with RVR, NSTEMI (non-ST elevated myocardial infarction), Hepatorenal failure Disposition: ADMITTED IP TO THIS HOSP Condition: Serious Is patient prescribed a controlled substance at d/c from ED?: No
[2021-10-12 18:51] LABS: Anisocytosis Slight; Basophils % (A) 0 %; Eosinophils # (A) 0.2 k/uL (0-0.7); Eosinophils % (A) 2 %; HCT 40.5 % (39.0-53.0); HGB 13.1 gm/dL (13.0-17.5); Lymphocytes # (A) 0.7 k/uL (1.0-4.8); Lymphocytes % (A) 9 %; MCH 33.4 pg (25.0-35.0); MCHC 32.3 g/dL (31.0-37.0); MCV 103.4 fL (80.0-100.0); Macrocytosis Moderate; Mean Platelet Volume 8.6; Monocytes # (A) 0.5 k/uL (0-1.0); Monocytes % (A) 7 %; Neutrophils % (A) 80 %; Platelet Count 156 k/uL (150-450); RBC 3.92 m/uL (4.30-5.90); RDW 17.7 % (11.5-15.5); WBC 7.5 k/uL (3.8-10.6)
[2021-10-12 18:58] LABS: Partial Thromboplastin Time 34.7 sec (22.0-30.0)
[2021-10-12 19:03] LABS: Prothrombin Time 68.2 sec (9.0-12.0)
[2021-10-12 19:11] LABS: INR 6.7 (<1.2)
[2021-10-12] MEDS: DILTIAZEM 125 MG in SODIUM CHLORIDE 0.9% 100 ML IV SCH (19:29)
--- NOTE | 2021-10-12 19:46 | XR ---
EXAMINATION TYPE: XR chest 2V DATE OF EXAM: 10/12/2021 COMPARISON: 09/02/2021 HISTORY: Dysrhythmia TECHNIQUE: 2 views FINDINGS: There is airspace infiltrate in the left mid and lower lung field. There is airspace infilt rate right lower lung field. There is blunting of the costophrenic angles. There is pulmonary vascula r congestion. There are chest leads. The bony thorax is intact. IMPRESSION: There is evidence for combined congestive heart failure and bilateral pneumonia increased compared to old exam.
[2021-10-12 20:03] LABS: Calcium 9.4 mg/dL (8.4-10.2); Magnesium 1.6 mg/dL (1.6-2.3); Potassium 3.6 mmol/L (3.5-5.1); Total Bilirubin 10.8 mg/dL (0.2-1.3)
[2021-10-12] MEDS ORDERED: NALOXONE 0.4 MG/ML 1 ML VIAL IV PRN (20:40)
--- NOTE | 2021-10-13 01:59 | P.HPIM ---
History of Present Illness H&P Date: 10/12/21 The patient is 81-year-old male with a PMH of diastolic CHF, hepatorenal syndrome (unclear etiology of liver disease), bioprosthetic aortic valve on Coumadin, hypertension, and hyperlipidemia who was brought into the emergency room after he was found to be severely tachycardic at his PCPs appointment. The patient is very hard of hearing despite use of hearing aids, thereby history supplemented by the son and the at the bedside. They report that the patient was recently discharged from [facility] where he was admitted for development of hepatorenal syndrome and had a prolonged hospitalization. The patient has been following with Dr. Azevedo as an outpatient for GI and that the workup for his cirrhosis is currently pending. The report of the patient developed jaundice roughly a month ago. The family and the patient denied a prior history of A. fib. At his PCPs appointment earlier today however, the patient was noted to be tachycardic with pulse 140-160s. The patient reports gradually worsening lower extremity edema as well as abdominal distention. He denied any additional complaints. Denied experiencing fever, chills, chest pain, shortness of breath, nausea, vomiting, abdominal pain, diarrhea. Laboratory evaluation was remarkable for troponin of 0.424, INR 6.7, sodium 128, chloride 88, BUN 35, creatinine 1.82, total bilirubin 10.8, AST 139, ALT 65, alk phos 148, and MCV 103.4. Review of systems: Pertinent positives and negatives as discussed in HPI, a complete review of systems was performed and all other systems are negative. Physical examination: General: Jaundiced male, no distress, appears at stated age, normal weight Derm: no unusual rashes/lesions no unusual ecchymoses, warm, dry Head: atraumatic, normocephalic, symmetric Eyes: EOMI, no lid lag, scleral icterus, pupils equal round reactive to light ENT: Nose and ears atraumatic, no thrush, no pharyngeal erythema Neck: No thyromegaly, no cervical lymphadenopathy, trachea midline, supple Mouth: no lip lesion, mucus membranes moist Cardiovascular: Irregularly irregular reg, no murmur, positive posterior tibial pulse bilateral, 2+ bilateral lower extremity pitting edema, capillary refill less than 2 seconds Lungs: CTA bilateral, no rhonchi, no rales , no accessory muscle use Abdominal: soft, nontender to palpation, no guarding, no appreciable organomegaly, normal bowel sounds Ext: no gross muscle atrophy, muscle strength 5 out of 5 in all 4 extremities grossly, no contractures, Neuro: CN II-XI grossly intact, light touch intact all 4 extremities, finger to nose within normal limits, Psych: Alert, oriented, appropriate affect Assessment/plan A. fib with RVR -Cardizem infusion -Cardiac monitoring -Cardiology consult -Supratherapeutic INR w/ Coumadin Elevated troponin, likely due to uncontrolled A. fib with RVR -As per above End-stage liver disease of unclear etiology -GI consulted -Patient reportedly follows with Dr. Azevedo as an outpatient -Obtain ammonia level -Unable to calculate MELD score due to Coumadin and elevated INR CKD, suspected hepatorenal syndrome -Monitor for now DVT prophylaxis -Coumadin The patient is admitted with an anticipated greater than 2 midnight stay for evaluation of Afib CODE STATUS: No Code Discussed with: Patient, , Son Anticipated discharge date: 2-[address]: Home Past Medical History Past Medical History: Cancer, GERD/Reflux, Hyperlipidemia, Hypertension, Pne umonia, Renal Disease, Skin Disorder Additional Past Medical History / Comment(s): dysphagia., anemia, hx skin cancer, colon polyp, , hx fall with subdural hematoma surgery History of Any Multi-Drug Resistant Organisms: None Reported Past Surgical History: Cardiac Valve Replacement Additional Past Surgical History / Comment(s): "valve removed from esophagus" @ 22 yrs old; aortic valve replacement (1999); brain surgery x2(subdural hematoma from fall), esophageal dilations, BORA cataract removal Past Anesthesia/Blood Transfusion Reactions: No Reported Reaction Past Psychological History: No Psychological Hx Reported Smoking Status: Former smoker Past Alcohol Use History: None Reported Past Drug Use History: None Reported - Past Family History Father Family Medical History: Cancer Additional Family Medical History / Comment(s): leukemia Mother Family Medical History: Cancer Additional Family Medical History / Comment(s): breast/colon cancer Daughter(s) Family Medical History: Cancer Additional Family Medical History / Comment(s): melanoma Medications and Allergies Home Medications Medication Instructions Recorded Confirmed Type Warfarin [Coumadin] 5 mg PO SUTUTHSA 11/27/15 10/12/21 History Warfarin [Coumadin] 2.5 mg PO MOWEFR 08/31/21 10/12/21 History Furosemide [Lasix] 40 mg PO DAILY 10/12/21 10/12/21 History Midodrine [ProAmatine] 5 - 10 mg PO DIRECTED PRN 10/12/21 10/12/21 History Sodium Bicarbonate Tab 1,300 mg PO TID@0800,1200,1530 10/12/21 10/12/21 History Allergies Allergy/AdvReac Type Severity Reaction Status Date / Time meperidine HCl [From Demerol] Allergy Anaphylaxis Verified 10/12/21 21:28 phenytoin sodium Allergy Rash/Hives Verified 10/12/21 21:28 [From Dilantin] phenytoin sodium extended Allergy Rash/Hives Verified 10/12/21 21:28 [From Dilantin] Physical Exam Vitals: Vital Signs Temp Pulse Resp BP Pulse Ox 10/12/21 19:55 140 H 16 92 L 10/12/21 19:32 148 H 16 115/99 96 10/12/21 18:14 97 F L 139 H 20 129/83 97 Intake and Output 10/12/21 10/12/21 10/12/21 06:59 14:59 22:59 Intake Total 1.5 Balance 1.5 Intake: Intake, IV Titration 1.5 Amount Diltiazem 125 mg In 1.5 Sodium Chloride 0.9% 100 ml @ Per Protocol IV .Q0M [facility] Rx#:[id number] Other: Weight 76.204 kg Results CBC & Chem 7: 10/12/21 18:39 10/12/21 18:57 Labs: Abnormal Lab Results - Last 24 Hours (Table) 10/12/21 10/12/21 10/12/21 Range/Units 18:39 18:39 18:39 RBC 3.92 L (4.30-5.90) m/uL MCV 103.4 H (80.0-100.0) fL RDW 17.7 H (11.5-15.5) % Lymphocytes # 0.7 L (1.0-4.8) k/uL PT 68.2 H (9.0-12.0) sec INR 6.7 H* (<1.2) APTT 34.7 H (22.0-30.0) sec Sodium (137-145) mmol/L Chloride (98-107) mmol/L BUN (9-20) mg/dL Creatinine (0.66-1.25) mg/dL Glucose (74-99) mg/dL Total Bilirubin (0.2-1.3) mg/dL AST (17-59) U/L ALT (4-49) U/L Alkaline Phosphatase (38-126) U/L Troponin I 0.424 H* (0.000-0.034) ng/mL 10/12/21 Range/Units 18:57 RBC (4.30-5.90) m/uL MCV (80.0-100.0) fL RDW (11.5-15.5) % Lymphocytes # (1.0-4.8) k/uL PT (9.0-12.0) sec INR (<1.2) APTT (22.0-30.0) sec Sodium 128 L (137-145) mmol/L Chloride 88 L (98-107) mmol/L BUN 35 H (9-20) mg/dL Creatinine 1.82 H (0.66-1.25) mg/dL Glucose 102 H (74-99) mg/dL Total Bilirubin 10.8 H (0.2-1.3) mg/dL AST 139 H (17-59) U/L ALT 65 H (4-49) U/L Alkaline Phosphatase 148 H (38-126) U/L Troponin I (0.000-0.034) ng/mL
[2021-10-13] MEDS: DILTIAZEM 125 MG in SODIUM CHLORIDE 0.9% 100 ML IV SCH ×2 (06:45→16:59)
[2021-10-13] MEDS: SODIUM BICARBONATE TAB 650 MG TAB PO SCH ×2 (08:07→11:34)
[2021-10-13] MEDS: MIDODRINE 5 MG TAB PO SCH ×3 (08:07→16:59)
[2021-10-13] MEDS ORDERED: FUROSEMIDE 40 MG TAB PO SCH (09:00)
[2021-10-13] MEDS ORDERED: FUROSEMIDE 10 MG/ML 4 ML VIAL IV STA (09:34)
--- NOTE | 2021-10-13 10:21 | P.PN ---
Subjective Progress Note Date: 10/13/21 Patient's heart rates are mildly improved. Daughter tells me that he was recently diagnosed with hereditary hemachromatosis. Echocardiogram is pending. Cardiology consult is pending. GI consult is pending. Nephrology consult is pending. Gen: awake, alert HEENT: normocephalic, atraumatic, good hearing acuity, moist mucous membranes Resp: good air exchange, breathing comfortably with no accessory muscle use CVS: good distal perfusion x 4, irregular rhythm, tachycardic, no murmurs GI: Mildly distended : no SPT, no CVAT, murry catheter not present MSK: Bilateral pitting edema, no clubbing Neuro: non-focal, moving all extremities Psych: cooperative, euthymic mood Assessment/plan: Paroxysmal A. fib with RVR Supratherapeutic INR Elevated troponin, likely due to uncontrolled A. 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 Azevedo as an outpatient -Obtain ammonia level -Likely need for exchange transfusion, pending GI recommendations CKD, suspected hepatorenal syndrome -Monitor for now -Nephrology consulted DVT prophylaxis covered with Coumadin CODE STATUS: No Code Discussed with: Patient, , daughter Anticipated discharge place: Home Objective - Vital Signs Vital signs: Vital Signs Temp 97.2 F L 10/13/21 08:00 Pulse 127 H 10/13/21 08:00 Resp 18 10/13/21 08:00 BP 103/68 10/13/21 08:00 Pulse Ox 98 10/13/21 08:00 Intake & Output 10/12/21 10/13/21 10/13/21 18:59 06:59 18:59 Intake Total 111.167 Output Total 50 Balance 61.167 Weight 76.204 kg 75.9 kg Intake: Intake, IV Titration 111.167 Amount Diltiazem 125 mg In 111.167 Sodium Chloride 0.9% 100 ml @ Per Protocol IV .Q0M [facility] Rx#:[id number] Output: Urine 50 Other: Voiding Method Toilet Urinal - Labs CBC & Chem 7: 10/12/21 18:39 10/12/21 18:57 Labs: Abnormal Lab Results - Last 24 Hours (Table) 10/12/21 10/12/21 10/12/21 Range/Units 18:39 18:39 18:39 RBC 3.92 L (4.30-5.90) m/uL MCV 103.4 H (80.0-100.0) fL RDW 17.7 H (11.5-15.5) % Lymphocytes # 0.7 L (1.0-4.8) k/uL PT 68.2 H (9.0-12.0) sec INR 6.7 H* (<1.2) APTT 34.7 H (22.0-30.0) sec Sodium (137-145) mmol/L Chloride (98-107) mmol/L BUN (9-20) mg/dL Creatinine (0.66-1.25) mg/dL Glucose (74-99) mg/dL Total Bilirubin (0.2-1.3) mg/dL AST (17-59) U/L ALT (4-49) U/L Alkaline Phosphatase (38-126) U/L Troponin I 0.424 H* (0.000-0.034) ng/mL 10/12/21 Range/Units 18:57 RBC (4.30-5.90) m/uL MCV (80.0-100.0) fL RDW (11.5-15.5) % Lymphocytes # (1.0-4.8) k/uL PT (9.0-12.0) sec INR (<1.2) APTT (22.0-30.0) sec Sodium 128 L (137-145) mmol/L Chloride 88 L (98-107) mmol/L BUN 35 H (9-20) mg/dL Creatinine 1.82 H (0.66-1.25) mg/dL Glucose 102 H (74-99) mg/dL Total Bilirubin 10.8 H (0.2-1.3) mg/dL AST 139 H (17-59) U/L ALT 65 H (4-49) U/L Alkaline Phosphatase 148 H (38-126) U/L Troponin I (0.000-0.034) ng/mL
--- NOTE | 2021-10-13 10:26 | P.CRDCN ---
History of Present Illness History of present illness: HISTORY OF PRESENTING ILLNESS This is a pleasant 81-year-old with past medical history significant for new onset liver disease, chronic kidney disease, concern of hemachromatosis, history of mechanical aortic valve, hypertension, new onset of atrial fibrillation. Unfortunately patient has had steady decline over the last year and especially last few months. He has had 2 hospitalizations with most recent hospitalization [facility] where he was diagnosed with new liver failure with elevated bilirubins up until the 19 range and apparently underwent extensive workup with concern of hemachromatosis. He also has been having chronic kidney disease and after [facility] proximally 3 weeks ago he was taken off of his Lasix. He has not had much of an appetite and denies any actual abdominal pain however has not been eating much. He has been gaining fluid and admits to increased lower extremity edema, increased mild dyspnea. Overall he was feeling okay and at his baseline however went to primary care physician's office and was noted to have new onset of A. fib with RVR. Therefore he was sent to the hospital. Patient does have a history of prior aortic stenosis and cardiac arrest at the age of 59 and underwent successful mechanical aortic valve replacement in 1999. EKG shows A. fib with RVR with minimal ST depressions in the lateral leads. Blood work shows hemoglobin 13.1, INR 6.7, sodium 128, creatinine 1.8, total bilirubin 10.8, AST 139, ALT 65, troponin 10.4 to, albumin 4.0. REVIEW OF SYSTEMS At the time of my exam: CONSTITUTIONAL: Denies fever or chills. CARDIOVASCULAR: Denies chest pain, +shortness of breath, +orthopnea, no PND or palpitations. RESPIRATORY: Denies cough. GASTROINTESTINAL: Denies abdominal pain, diarrhea, constipation, nausea or vom iting. MUSCULOSKELETAL: Denies myalgias. NEUROLOGIC: Denies numbness, tingling or weakness. ENDOCRINE: Denies fatigue, weight change, polydipsia or polyurina. GENITOURINARY: Denies burning, hematuria or urgency with micturation. HEMATOLOGIC: Denies history of anemia or bleeding. PHYSICAL EXAMINATION Vital signs reviewed. CONSTITUTIONAL: No apparent distress, ill-appearing, jaundiced, extremely hard of hearing HEENT: Head is normocephalic. Pupils are equal, round. Sclerae anicteric. Mucous membranes of the mouth are moist. No JVD. No carotid bruit. CHEST EXAMINATION: Bilateral crackles HEART EXAMINATION: Regularly irregular rate and rhythm. Tachycardic S1, S2 heard. No murmurs, gallops or rub. ABDOMEN: Soft, nontender. Positive bowel sounds. EXTREMITIES: 2+ peripheral pulses, 2+ lower extremity edema and no calf tenderness. NEUROLOGIC EXAMINATION: Patient is awake, alert and oriented x3. ASSESSMENT 1. Acute on chronic diastolic heart failure 2. Chronic kidney disease 3. Acute liver injury, unclear diagnosis of possible hemachromatosis 4. Supratherapeutic INR. 5. New-onset A. fib with RVR 6. Non-STEMI likely type II mechanism PLAN Patient with gradual decline over the last 2 months and worsening liver functions. There is always a consideration of hepatic congestion however fairly extreme elevations in liver enzymes. Patient clearly appears volume overloaded and we will increase diuresis with IV diuretics. Continue with supportive care. Recheck 2-D echo to evaluate LV function given non-STEMI. Patient not complaining of any angina-type symptoms. May consider right heart catheterization if some ambiguity of heart failure as primary cause. 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" @ 22 yrs old; aortic valve replacement (1999); brain surgery x2(subdural hematoma from fall), esophageal dilations, BORA cataract removal Past Anesthesia/Blood Transfusion Reactions: No Reported Reaction Past Psychological History: No Psychological Hx Reported Smoking Status: Former smoker Past Alcohol Use History: None Reported Past Drug Use History: None Reported - Past Family History Father Family Medical History: Cancer Additional Family Medical History / Comment(s): leukemia Mother Family Medical History: Cancer Additional Family Medical History / Comment(s): breast/colon cancer Daughter(s) Family Medical History: Cancer Additional Family Medical History / Comment(s): melanoma Medications and Allergies Home Medications Medication Instructions Recorded Confirmed Type Warfarin [Coumadin] 5 mg PO SUTUTHSA 11/27/15 10/12/21 History Warfarin [Coumadin] 2.5 mg PO MOWEFR 08/31/21 10/12/21 History Furosemide [Lasix] 40 mg PO DAILY 10/12/21 10/12/21 History Midodrine [ProAmatine] 5 - 10 mg PO DIRECTED PRN 10/12/21 10/12/21 History Sodium Bicarbonate Tab 1,300 mg PO TID@0800,1200,1530 10/12/21 10/12/21 History Allergies Allergy/AdvReac Type Severity Reaction Status Date / Time meperidine HCl [From Demerol] Allergy Anaphylaxis Verified 10/12/21 21:28 phenytoin sodium Allergy Rash/Hives Verified 10/12/21 21:28 [From Dilantin] phenytoin sodium extended Allergy Rash/Hives Verified 10/12/21 21:28 [From Dilantin] Physical Exam Vitals: Vital Signs Temp Pulse Pulse Resp BP BP Pulse Ox 10/13/21 08:00 97.2 F L 127 H 18 103/68 98 10/13/21 04:00 98.3 F 115 H 16 107/61 93 L 10/13/21 02:00 132 H 16 10/13/21 00:00 98.1 F 132 H 16 105/61 92 L 10/12/21 20:50 98.1 F 132 H 16 105/61 92 L 10/12/21 19:55 140 H 16 92 L 10/12/21 19:32 148 H 16 115/99 96 10/12/21 18:14 97 F L 139 H 20 129/83 97 Intake and Output 10/12/21 10/13/21 10/13/21 22:59 06:59 14:59 Intake Total 1.5 109.667 Output Total 50 Balance 1.5 59.667 Intake: Intake, IV Titration 1.5 109.667 Amount Diltiazem 125 mg In 1.5 109.667 Sodium Chloride 0.9% 100 ml @ Per Protocol IV .Q0M [facility] Rx#:[id number] Output: Urine 50 Other: Voiding Method Toilet Urinal Weight 76.204 kg 75.9 kg Results 10/12/21 18:39 10/12/21 18:57 Cardiac Enzymes 10/12/21 10/12/21 Range/Units 18:39 18:57 AST 139 H (17-59) U/L Troponin I 0.424 H* (0.000-0.034) ng/mL Coagulation 10/12/21 Range/Units 18:39 PT 68.2 H (9.0-12.0) sec APTT 34.7 H (22.0-30.0) sec CBC 10/12/21 Range/Units 18:39 WBC 7.5 (3.8-10.6) k/uL RBC 3.92 L (4.30-5.90) m/uL Hgb 13.1 (13.0-17.5) gm/dL Hct 40.5 (39.0-53.0) % Plt Count 156 (150-450) k/uL Comprehensive Metabolic Panel 10/12/21 Range/Units 18:57 Sodium 128 L (137-145) mmol/L Potassium 3.6 (3.5-5.1) mmol/L Chloride 88 L (98-107) mmol/L Carbon Dioxide 25 (22-30) mmol/L BUN 35 H (9-20) mg/dL Creatinine 1.82 H (0.66-1.25) mg/dL Glucose 102 H (74-99) mg/dL Calcium 9.4 (8.4-10.2) mg/dL AST 139 H (17-59) U/L ALT 65 H (4-49) U/L Alkaline Phosphatase 148 H (38-126) U/L Total Protein 8.0 (6.3-8.2) g/dL Albumin 4.0 (3.5-5.0) g/dL Current Medications Generic Name Dose Route Start Last Admin Trade Name Freq PRN Reason Stop Dose Admin Furosemide 40 mg 10/13/21 09:00 10/13/21 08:07 Furosemide 40 Mg Tab PO 40 mg DAILY FLACO Administration Diltiazem HCl 125 mg/ Sodium 125 mls @ 0 mls/hr 10/12/21 19:00 10/13/21 06:45 Chloride IV 10 mls/hr .Q0M FLACO 10 mls/hr Administration Protocol Per Protocol Midodrine 5 - 10 mg 10/13/21 07:30 10/13/21 08:07 Midodrine 5 Mg Tab PO 5 mg TID-W/MEALS FLACO Administration Miscellaneous Information 1 each 10/13/21 01:58 Warfarin Per Pharmacy MISCELLANE DIRECTED PRN Per Protocol Protocol Naloxone HCl 0.2 mg 03/29/22 20:40 Naloxone 0.4 Mg/Ml 1 Ml Vial IV Q2M PRN Opioid Reversal Sodium Bicarbonate 1,300 mg 10/13/21 08:00 10/13/21 08:07 Sodium Bicarbonate Tab 650 Mg Tab PO 1,300 mg TID@0800,1200,1530 FLACO Administration Intake and Output 10/12/21 10/13/21 10/13/21 22:59 06:59 14:59 Intake Total 1.5 109.667 Output Total 50 Balance 1.5 59.667 Intake: Intake, IV Titration 1.5 109.667 Amount Diltiazem 125 mg In 1.5 109.667 Sodium Chloride 0.9% 100 ml @ Per Protocol IV .Q0M [facility] Rx#:[id number] Output: Urine 50 Other: Voiding Method Toilet Urinal Weight 76.204 kg 75.9 kg 10/12/21 18:39 10/12/21 18:57
[2021-10-13 10:56] LABS: Anisocytosis Slight; HCT 37.4 % (39.0-53.0); HGB 12.4 gm/dL (13.0-17.5); Hypochromasia Slight; MCH 34.8 pg (25.0-35.0); MCHC 33.2 g/dL (31.0-37.0); Macrocytosis Marked; Mean Platelet Volume 8.5; Platelet Count 149 k/uL (150-450); RBC 3.56 m/uL (4.30-5.90); RDW 17.7 % (11.5-15.5); WBC 8.1 k/uL (3.8-10.6)
[2021-10-13 11:09] LABS: Albumin 3.6 g/dL (3.5-5.0); Calcium 8.9 mg/dL (8.4-10.2); Potassium 3.5 mmol/L (3.5-5.1); Prothrombin Time 64.9 sec (9.0-12.0); Total Bilirubin 10.6 mg/dL (0.2-1.3); Total Protein 7.2 g/dL (6.3-8.2)
[2021-10-13 11:25] LABS: INR 6.4 (<1.2)
[2021-10-13] MEDS ORDERED: FUROSEMIDE 10 MG/ML 4 ML VIAL IV SCH (12:00)
[2021-10-13] MEDS: METOPROLOL TARTRATE 25 MG TAB PO SCH ×2 (12:03→21:41)
[2021-10-13] MEDS ORDERED: POTASSIUM CHLORIDE ER 20 MEQ TAB.ER PO STA (13:11)
--- NOTE | 2021-10-13 13:11 | P.NPCON ---
History of Present Illness - Reason for Consult chronic renal failure - History of Present Illness Patient is a 81-year-old male with history of chronic kidney disease stage IV with baseline creatinine around 1.9-2 mg/dL secondary to nephrosclerosis. Patient has underlying chronic liver disease/liver cirrhosis being followed by Dr. Wiley. Patient was recently hospitalized at [facility] for hepatorenal syndrome. Admitted on this hospitalization with complaints of increased shortness of breath. He has had increased lower extremity swelling. No changes in urine output No fever chills nausea vomiting or abdominal pain. Patient is noted to have A. fib with RVR. Recently taken off of Lasix. Serum creatinine this admission 1.8 mg/dL Review of Systems As per HPI, other systems negative 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" @ 22 yrs old; aortic valve replacement (1999); brain surgery x2(subdural hematoma from fall), esophageal dilations, BORA cataract removal Past Anesthesia/Blood Transfusion Reactions: No Reported Reaction Past Psychological History: No Psychological Hx Reported Smoking Status: Former smoker Past Alcohol Use History: None Reported Past Drug Use History: None Reported - Past Family History Father Family Medical History: Cancer Additional Family Medical History / Comment(s): leukemia Mother Family Medical History: Cancer Additional Family Medical History / Comment(s): breast/colon cancer Daughter(s) Family Medical History: Cancer Additional Family Medical History / Comment(s): melanoma Medications and Allergies Home Medications Medication Instructions Recorded Confirmed Type Warfarin [Coumadin] 5 mg PO SUTUTHSA 11/27/15 10/12/21 History Warfarin [Coumadin] 2.5 mg PO MOWEFR 08/31/21 10/12/21 History Furosemide [Lasix] 40 mg PO DAILY 10/12/21 10/12/21 History Midodrine [ProAmatine] 5 - 10 mg PO DIRECTED PRN 10/12/21 10/12/21 History Sodium Bicarbonate Tab 1,300 mg PO TID@0800,1200,1530 10/12/21 10/12/21 History Allergies Allergy/AdvReac Type Severity Reaction Status Date / Time meperidine HCl [From Demerol] Allergy Anaphylaxis Verified 10/12/21 21:28 phenytoin sodium Allergy Rash/Hives Verified 10/12/21 21:28 [From Dilantin] phenytoin sodium extended Allergy Rash/Hives Verified 10/12/21 21:28 [From Dilantin] Physical Exam Vitals: Vital Signs Temp Pulse Pulse Resp BP BP Pulse Ox 10/13/21 11:11 97.8 F 128 H 18 142/74 94 L 10/13/21 08:00 97.2 F L 127 H 18 103/68 98 10/13/21 04:00 98.3 F 115 H 16 107/61 93 L 10/13/21 02:00 132 H 16 10/13/21 00:00 98.1 F 132 H 16 105/61 92 L 10/12/21 20:50 98.1 F 132 H 16 105/61 92 L 10/12/21 19:55 140 H 16 92 L 10/12/21 19:32 148 H 16 115/99 96 10/12/21 18:14 97 F L 139 H 20 129/83 97 Intake and Output 10/12/21 10/13/21 10/13/21 22:59 06:59 14:59 Intake Total 1.5 109.667 Output Total 50 Balance 1.5 59.667 Intake: Intake, IV Titration 1.5 109.667 Amount Diltiazem 125 mg In 1.5 109.667 Sodium Chloride 0.9% 100 ml @ Per Protocol IV .Q0M [facility] Rx#:[id number] Output: Urine 50 Other: Voiding Method Toilet Urinal Weight 76.204 kg 75.9 kg Patient is awake, comfortable Very hard of hearing Examination of the heart S1 and S2 Examination of the lungs decreased breath sounds at the bases Abdomen is soft distended nontender Examination of lower extremities shows edema 2+ bilaterally COLLAR BASTER exam grossly intact Results - Lab Results Most recent lab results Calcium 8.9 mg/dL (8.4-10.2) 10/13/21 10:14 Magnesium 1.6 mg/dL (1.6-2.3) 10/12/21 18:57 10/13/21 10:14 10/13/21 10:14 Assessment and Plan Assessment: 1. Chronic kidney disease NKF stage IV with baseline creatinine 1.9-2 mg/dL. Etiology nephrosclerosis. UA has been bland 2. Volume overload 3. Recent hospitalization with acute kidney injury, ATN versus hepatorenal syndrome. Creatinine had been staying around 3 mg/dL at [facility] 4. A. fib with RVR 5. Chronic liver disease, workup in progress. Possible hemachromatosis 6. Non-ST elevation FL 7. Hypervolemic hyponatremia Plan: Diurese patient DC sodium bicarb which is adding to volume overload Replace potassium May continue with the midodrine as blood pressure remains on the lower side Repeat labs in a.m.
--- NOTE | 2021-10-13 15:06 | US ---
EXAMINATION TYPE: US liver DATE OF EXAM: 10/13/2021 COMPARISON: Ultrasound dated 10/12/2021 CLINICAL HISTORY: Jaundice. EXAM MEASUREMENTS: Liver Length: 12.6 cm Gallbladder Wall: 0.4 cm CBD: 0.3 cm Right Kidney: 9.2 x 5.7 x 4.6 cm Pancreas: Echogenic Liver: Coarse Gallbladder: Thickened wall with multiple stones measuring up to 18 mm Evidence for sonographic Islas's sign: No CBD: wnl Right Kidney: wnl Ascites of RUQ, Right pleural effusion, Cholecystolithiasis with thickened gallbladder wall. Apparent course hepatic parenchyma without definite focal lesion. IMPRESSION: Cholelithiasis with thickened gallbladder wall yet with negative sonographic Islas's sign, acute cho lecystitis can't be excluded, please correlate clinically. No CBD dilatation. Coarse hepatic parenchy ma, please correlate with liver function tests and hepatic viral serology. Persistent ascites. Right pleural effusion.
--- NOTE | 2021-10-13 15:59 | P.CONS ---
History of Present Illness - Reason for Consult Consult date: 10/13/21 Hepatorenal syndrome Requesting physician: Wilma Luo - Chief Complaint Tachycardia - History of Present Illness This is a 81-year-old male with multiple comorbidities including recent diagnosis of liver disease and jaundice who was seen at [facility] and followed up with gastroenterology Dr. Azevedo. He was following up with his primary care physician and was found to have elevated heart rate. Patient does have a past medical history including atrial fibrillation, valve replacement, hyperlipidemia, hypertension, renal disease. During his last admission and he was significantly jaundiced was the max bilirubin around 30 per reports the family. Had no prior knowledge of liver disease. No history of alcohol abuse. He had multiple workups at [facility] including liver serology, CT of the abdomen and pelvis that showed no biliary dilation or CBD stone. He did undergo testing that showed homozygous H63D variant for hemochromatosis. Gastroenterology was consulted this admission for hepatorenal syndrome. The patient denies any abdominal pain, nausea, or vomiting. States he does feel like his heart is been racing. He denies any chest pain, but has had some shortness of breath. He also noted increased swelling to his lower extremities. Review of Systems REVIEW OF SYSTEMS: CARDIOPULMONARY: No chest pain. Racing heart and shortness of breath. Gastrointestinal: No abdominal pain. No nausea or vomiting. No hematemesis, coffee-ground emesis. No rectal bleeding, or melena. GENITOURINARY: No dysuria or hematuria. MUSCULOSKELETAL: Reports normal range of motion., Joint pain. SKIN: No rashes. No jaundice. ENDOCRINE: No chills, fevers. No excessive weight gain or loss. No polydipsia or polyuria. PSYCHIATRIC: Unremarkable. NEUROLOGY: No change in mental status. Denies dizziness, headache. ENT: Vision unremarkable. CONSTITUTIONAL: No recent weight loss. No fever, chills, night sweats. 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" @ 22 yrs old; aortic valve replacement (1999); brain surgery x2(subdural hematoma from fall), esophageal dilations, BORA cataract removal Past Anesthesia/Blood Transfusion Reactions: No Reported Reaction Past Psychological History: No Psychological Hx Reported Smoking Status: Former smoker Past Alcohol Use History: None Reported Past Drug Use History: None Reported - Past Family History Father Family Medical History: Cancer Additional Family Medical History / Comment(s): leukemia Mother Family Medical History: Cancer Additional Family Medical History / Comment(s): breast/colon cancer Daughter(s) Family Medical History: Cancer Additional Family Medical History / Comment(s): melanoma Medications and Allergies Home Medications Medication Instructions Recorded Confirmed Type Warfarin [Coumadin] 5 mg PO SUTUTHSA 11/27/15 10/12/21 History Warfarin [Coumadin] 2.5 mg PO MOWEFR 08/31/21 10/12/21 History Furosemide [Lasix] 40 mg PO DAILY 10/12/21 10/12/21 History Midodrine [ProAmatine] 5 - 10 mg PO DIRECTED PRN 10/12/21 10/12/21 History Sodium Bicarbonate Tab 1,300 mg PO TID@0800,1200,1530 10/12/21 10/12/21 History Allergies Allergy/AdvReac Type Severity Reaction Status Date / Time meperidine HCl [From Demerol] Allergy Anaphylaxis Verified 10/12/21 21:28 phenytoin sodium Allergy Rash/Hives Verified 10/12/21 21:28 [From Dilantin] phenytoin sodium extended Allergy Rash/Hives Verified 10/12/21 21:28 [From Dilantin] Physical Exam Vitals: Vital Signs Temp Pulse Pulse Resp BP BP Pulse Ox 10/13/21 08:00 97.2 F L 127 H 18 103/68 98 10/13/21 04:00 98.3 F 115 H 16 107/61 93 L 10/13/21 02:00 132 H 16 10/13/21 00:00 98.1 F 132 H 16 105/61 92 L 10/12/21 20:50 98.1 F 132 H 16 105/61 92 L 10/12/21 19:55 140 H 16 92 L 10/12/21 19:32 148 H 16 115/99 96 10/12/21 18:14 97 F L 139 H 20 129/83 97 Intake and Output 10/12/21 10/13/21 10/13/21 22:59 06:59 14:59 Intake Total 1.5 109.667 Output Total 50 Balance 1.5 59.667 Intake: Intake, IV Titration 1.5 109.667 Amount Diltiazem 125 mg In 1.5 109.667 Sodium Chloride 0.9% 100 ml @ Per Protocol IV .Q0M [facility] Rx#:[id number] Output: Urine 50 Other: Voiding Method Toilet Urinal Weight 76.204 kg 75.9 kg General appearance: The patient is alert, oriented, appears in no acute distress. HET: Head is normocephalic and atraumatic. Conjunctiva pink. Sclera icteric. Neck: Supple without lymphadenopathy. Trachea midline. Heart: S1 S2. Regular rate and rhythm. Tachycardic. Lungs: Crackles with Bilateral wheezes. Abdomen: Soft, nontender, nondistended with bowel sounds. No guarding or rigidity. Skin: No rashes. Jaundice. Extremities: Normal skin color and turgor. Bilateral lower extremity pitting edema. Neurological: No focal deficits. Alert and oriented x3. Results CBC & Chem 7: 10/13/21 10:14 10/13/21 10:14 Labs: Abnormal Lab Results - Last 24 Hours (Table) 10/12/21 10/12/21 10/12/21 Range/Units 18:39 18:39 18:39 RBC 3.92 L (4.30-5.90) m/uL MCV 103.4 H (80.0-100.0) fL RDW 17.7 H (11.5-15.5) % Lymphocytes # 0.7 L (1.0-4.8) k/uL PT 68.2 H (9.0-12.0) sec INR 6.7 H* (<1.2) APTT 34.7 H (22.0-30.0) sec Sodium (137-145) mmol/L Chloride (98-107) mmol/L BUN (9-20) mg/dL Creatinine (0.66-1.25) mg/dL Glucose (74-99) mg/dL Total Bilirubin (0.2-1.3) mg/dL AST (17-59) U/L ALT (4-49) U/L Alkaline Phosphatase (38-126) U/L Troponin I 0.424 H* (0.000-0.034) ng/mL 10/12/21 Range/Units 18:57 RBC (4.30-5.90) m/uL MCV (80.0-100.0) fL RDW (11.5-15.5) % Lymphocytes # (1.0-4.8) k/uL PT (9.0-12.0) sec INR (<1.2) APTT (22.0-30.0) sec Sodium 128 L (137-145) mmol/L Chloride 88 L (98-107) mmol/L BUN 35 H (9-20) mg/dL Creatinine 1.82 H (0.66-1.25) mg/dL Glucose 102 H (74-99) mg/dL Total Bilirubin 10.8 H (0.2-1.3) mg/dL AST 139 H (17-59) U/L ALT 65 H (4-49) U/L Alkaline Phosphatase 148 H (38-126) U/L Troponin I (0.000-0.034) ng/mL Comments: Liver ultrasound: Cholelithiasis with thickened gallbladder wall yet with negative sonographic Islas's sign, acute cholecystitis cannot be excluded correlate clinically. No CBD dilation. Coarse hepatic parenchyma, please correlate with liver function tests and hepatic viral serology. Persistent ascites. Right pleural effusion. Assessment and Plan (1) Chronic liver disease Narrative/Plan: 81-year-old male with multiple comorbidities who was admitted with tachycardia and recent hospitalization at [facility] for jaundice. Patient had extensive workup including the liver serology and was found to have H63D homozygous variant for hemochromatosis. Looking back and patient's labs he has had mild underlying elevation in his total bilirubin is since 2017 likely related to hemochromatosis. 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 Will order liver ultrasound, iron studies and ferritin. Current Visit: Yes Status: Acute Code(s): K76.9 - LIVER DISEASE, UNSPECIFIED SNOMED Code(s): 668160184 (2) Hemochromatosis Narrative/Plan: Hemochromatosis will be further managed as outpatient Current Visit: Yes Status: Acute Code(s): E83.119 - HEMOCHROMATOSIS, UNSPECIFIED SNOMED Code(s): 163926189 (3) Jaundice Current Visit: No Status: Acute Code(s): R17 - UNSPECIFIED JAUNDICE SNOMED Code(s): 03599581 (4) Chronic kidney disease Current Visit: Yes Status: Acute Code(s): N18.9 - CHRONIC KIDNEY DISEASE, UNSPECIFIED SNOMED Code(s): 667922183 Plan: 1. Continue symptomatic and supportive care 2. Low sodium diet, renal diet 3. Consult to nephrology for chronic kidney disease, hepatorenal syndrome 4. Iron studies, ferritin ordered 5. Liver ultrasound ordered 6. Outpatient management of hemochromatosis 7. Patient to keep scheduled appointment for Monday with Dr. Azevedo Thank you for this consultation, we will continue to follow. Dr. Gabriel Azevedo I agree with the dictator's note, documented as a scribe by Minnie Martinez.
[2021-10-13] MEDS ORDERED: WARFARIN 0.5 MG TAB PO ONE (18:00)
[2021-10-13] MEDS ORDERED: IPRATROPIUM-ALBUTEROL 3 ML NEB INHALATION PRN (20:30)
[2021-10-13] MEDS: FUROSEMIDE 10 MG/ML 4 ML VIAL IV SCH (21:41)
[2021-10-14 02:05] LABS: % Iron Saturation 37.35 (15.00-50.00)
[2021-10-14] MEDS: MIDODRINE 5 MG TAB PO SCH ×3 (06:38→17:44)
[2021-10-14] MEDS: METOPROLOL TARTRATE 25 MG TAB PO SCH ×2 (08:26→21:09)
[2021-10-14] MEDS: FUROSEMIDE 10 MG/ML 4 ML VIAL IV SCH ×2 (08:26→21:10)
[2021-10-14] MEDS: LACTULOSE 20 GM/30 ML CUP PO SCH (08:26)
[2021-10-14 09:37] LABS: Anisocytosis Slight; Basophils % (A) 1 %; Eosinophils # (A) 0.1 k/uL (0-0.7); Eosinophils % (A) 2 %; HCT 38.4 % (39.0-53.0); HGB 12.7 gm/dL (13.0-17.5); Lymphocytes # (A) 0.8 k/uL (1.0-4.8); Lymphocytes % (A) 10 %; MCH 34.4 pg (25.0-35.0); MCV 104.3 fL (80.0-100.0); Macrocytosis Moderate; Mean Platelet Volume 8.6; Monocytes # (A) 0.6 k/uL (0-1.0); Monocytes % (A) 8 %; Neutrophils % (A) 78 %; Platelet Count 158 k/uL (150-450); RBC 3.68 m/uL (4.30-5.90); RDW 17.7 % (11.5-15.5); WBC 7.7 k/uL (3.8-10.6)
[2021-10-14 09:38] LABS: Albumin 3.4 g/dL (3.5-5.0); Bilirubin, Conjugated 2.4 mg/dL (0.0-0.3); Bilirubin, Delta 4.4 mg/dL (0.0-0.2); Bilirubin,Unconjugated 2.7 mg/dL (0.0-1.1); Calcium 8.7 mg/dL (8.4-10.2); Magnesium 1.7 mg/dL (1.6-2.3); Potassium 3.8 mmol/L (3.5-5.1); Total Bilirubin 9.5 mg/dL (0.2-1.3); Total Protein 6.9 g/dL (6.3-8.2)
[2021-10-14 09:40] LABS: Prothrombin Time 75.2 sec (9.0-12.0)
[2021-10-14 09:42] LABS: INR 7.4 (<1.2)
[2021-10-14] MEDS ORDERED: WARFARIN 0.5 MG TAB PO ONE ×2 (09:45→18:00)
--- NOTE | 2021-10-14 10:33 | P.PN ---
Subjective Progress Note Date: 10/14/21 Patient's heart rates are now controlled, on diltiazem drip, can transition to orals, defer to cardiology. Echocardiogram is pending. Gen: awake, alert HEENT: normocephalic, atraumatic, good hearing acuity, moist mucous membranes Resp: good air exchange, breathing comfortably with no accessory muscle use CVS: good distal perfusion x 4, irregular rhythm, tachycardic, no murmurs GI: Mildly distended : no SPT, no CVAT, murry catheter not present MSK: Bilateral pitting edema, no clubbing Neuro: non-focal, moving all extremities Psych: cooperative, euthymic mood Assessment/plan: Paroxysmal A. fib with RVR Supratherapeutic INR Elevated troponin, likely due to uncontrolled A. 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 Azevedo as an outpatient -Obtain ammonia level -Likely need for exchange transfusion, pending GI recommendations CKD, suspected hepatorenal syndrome -Monitor for now -Nephrology consulted DVT prophylaxis covered with Coumadin CODE STATUS: No Code Discussed with: Patient, , daughter Anticipated discharge place: Home Objective - Vital Signs Vital signs: Vital Signs Temp 97.6 F 10/14/21 07:46 Pulse 69 10/14/21 08:00 Resp 28 H 10/14/21 07:46 BP 112/61 10/14/21 07:46 Pulse Ox 99 10/14/21 08:59 Intake & Output 10/13/21 10/14/21 10/14/21 18:59 06:59 18:59 Intake Total 102.333 10 118 Output Total 550 Balance 102.333 -540 118 Intake: IV 10 Invasive Line 2 10 Intake, IV Titration 102.333 Amount Diltiazem 125 mg In 102.333 Sodium Chloride 0.9% 100 ml @ Per Protocol IV .Q0M [facility] Rx#:[id number] Oral 118 Output: Urine 550 Other: Voiding Method Toilet Toilet Urinal Urinal - Labs CBC & Chem 7: 10/14/21 09:01 10/14/21 09:01 Labs: Abnormal Lab Results - Last 24 Hours (Table) 10/13/21 10/13/21 10/13/21 Range/Units 10:14 10:14 10:14 RBC 3.56 L (4.30-5.90) m/uL Hgb 12.4 L (13.0-17.5) gm/dL Hct 37.4 L (39.0-53.0) % MCV 105.0 H (80.0-100.0) fL RDW 17.7 H (11.5-15.5) % Plt Count 149 L (150-450) k/uL Lymphocytes # (1.0-4.8) k/uL Macrocytosis Marked A PT 64.9 H (9.0-12.0) sec INR 6.4 H* (<1.2) Sodium 129 L (137-145) mmol/L Chloride 87 L (98-107) mmol/L BUN 34 H (9-20) mg/dL Creatinine 1.77 H (0.66-1.25) mg/dL Glucose (74-99) mg/dL TIBC (228-460) ug/dL Transferrin (204.0-354.0) mg/dL Ferritin (22.0-322.0) ng/mL Total Bilirubin 10.6 H (0.2-1.3) mg/dL Conjugated Bilirubin (0.0-0.3) mg/dL Unconjugated Bilirubin (0.0-1.1) mg/dL Delta Bilirubin (0.0-0.2) mg/dL AST 118 H (17-59) U/L ALT 58 H (4-49) U/L Troponin I (0.000-0.034) ng/mL Albumin (3.5-5.0) g/dL 10/13/21 10/13/21 10/14/21 Range/Units 10:14 10:25 09:01 RBC (4.30-5.90) m/uL Hgb (13.0-17.5) gm/dL Hct (39.0-53.0) % MCV (80.0-100.0) fL RDW (11.5-15.5) % Plt Count (150-450) k/uL Lymphocytes # (1.0-4.8) k/uL Macrocytosis PT 75.2 H (9.0-12.0) sec INR 7.4 H* (<1.2) Sodium (137-145) mmol/L Chloride (98-107) mmol/L BUN (9-20) mg/dL Creatinine (0.66-1.25) mg/dL Glucose (74-99) mg/dL TIBC 202 L (228-460) ug/dL Transferrin 144.0 L (204.0-354.0) mg/dL Ferritin 751.0 H (22.0-322.0) ng/mL Total Bilirubin (0.2-1.3) mg/dL Conjugated Bilirubin (0.0-0.3) mg/dL Unconjugated Bilirubin (0.0-1.1) mg/dL Delta Bilirubin (0.0-0.2) mg/dL AST (17-59) U/L ALT (4-49) U/L Troponin I 0.310 H* (0.000-0.034) ng/mL Albumin (3.5-5.0) g/dL 10/14/21 10/14/21 Range/Units 09:01 09:01 RBC 3.68 L (4.30-5.90) m/uL Hgb 12.7 L (13.0-17.5) gm/dL Hct 38.4 L (39.0-53.0) % MCV 104.3 H (80.0-100.0) fL RDW 17.7 H (11.5-15.5) % Plt Count (150-450) k/uL Lymphocytes # 0.8 L (1.0-4.8) k/uL Macrocytosis PT (9.0-12.0) sec INR (<1.2) Sodium 130 L (137-145) mmol/L Chloride 88 L (98-107) mmol/L BUN 43 H (9-20) mg/dL Creatinine 2.13 H (0.66-1.25) mg/dL Glucose 126 H (74-99) mg/dL TIBC (228-460) ug/dL Transferrin (204.0-354.0) mg/dL Ferritin (22.0-322.0) ng/mL Total Bilirubin 9.5 H (0.2-1.3) mg/dL Conjugated Bilirubin 2.4 H (0.0-0.3) mg/dL Unconjugated Bilirubin 2.7 H (0.0-1.1) mg/dL Delta Bilirubin 4.4 H (0.0-0.2) mg/dL AST 121 H (17-59) U/L ALT 56 H (4-49) U/L Troponin I (0.000-0.034) ng/mL Albumin 3.4 L (3.5-5.0) g/dL
[2021-10-14 10:53] VITALS: BMI 27.0
--- NOTE | 2021-10-14 12:50 | P.PN ---
Subjective Patient is seen for follow-up for acute kidney injury on top of chronic kidney disease. He is currently being diuresed and maintained on IV Lasix every 12 hours. Overall patient states he is feeling better. Serum creatinine is slightly higher at 2 but that is more near his baseline. Reports good urine output. Not accurately charted Objective - Vital Signs Vital signs: Vital Signs Temp 97.6 F 10/14/21 07:46 Pulse 69 10/14/21 08:00 Resp 28 H 10/14/21 07:46 BP 112/61 10/14/21 07:46 Pulse Ox 99 10/14/21 08:59 Intake & Output 10/13/21 10/14/21 10/14/21 18:59 06:59 18:59 Intake Total 102.333 10 118 Output Total 550 Balance 102.333 -540 118 Weight 75.9 kg Intake: IV 10 Invasive Line 2 10 Intake, IV Titration 102.333 Amount Diltiazem 125 mg In 102.333 Sodium Chloride 0.9% 100 ml @ Per Protocol IV .Q0M [facility] Rx#:[id number] Oral 118 Output: Urine 550 Other: Voiding Method Toilet Toilet Urinal Urinal # Voids 1 # Bowel Movements 1 - Exam Patient is awake Comfortable Not in any acute distress Mittie hard of hearing Examination of the heart S1 and S2 Examination lungs bilateral breath sounds are heard Abdomen is soft distended Examination lower extremity shows edema 2+ bilaterally [employer] exam grossly intact - Labs CBC & Chem 7: 10/14/21 09:01 10/14/21 09:01 Labs: Abnormal Lab Results - Last 24 Hours (Table) 10/13/21 10/14/21 10/14/21 Range/Units 10:14 09:01 09:01 RBC 3.68 L (4.30-5.90) m/uL Hgb 12.7 L (13.0-17.5) gm/dL Hct 38.4 L (39.0-53.0) % MCV 104.3 H (80.0-100.0) fL RDW 17.7 H (11.5-15.5) % Lymphocytes # 0.8 L (1.0-4.8) k/uL PT 75.2 H (9.0-12.0) sec INR 7.4 H* (<1.2) Sodium (137-145) mmol/L Chloride (98-107) mmol/L BUN (9-20) mg/dL Creatinine (0.66-1.25) mg/dL Glucose (74-99) mg/dL TIBC 202 L (228-460) ug/dL Transferrin 144.0 L (204.0-354.0) mg/dL Ferritin 751.0 H (22.0-322.0) ng/mL Total Bilirubin (0.2-1.3) mg/dL Conjugated Bilirubin (0.0-0.3) mg/dL Unconjugated Bilirubin (0.0-1.1) mg/dL Delta Bilirubin (0.0-0.2) mg/dL AST (17-59) U/L ALT (4-49) U/L Albumin (3.5-5.0) g/dL 10/14/21 Range/Units 09:01 RBC (4.30-5.90) m/uL Hgb (13.0-17.5) gm/dL Hct (39.0-53.0) % MCV (80.0-100.0) fL RDW (11.5-15.5) % Lymphocytes # (1.0-4.8) k/uL PT (9.0-12.0) sec INR (<1.2) Sodium 130 L (137-145) mmol/L Chloride 88 L (98-107) mmol/L BUN 43 H (9-20) mg/dL Creatinine 2.13 H (0.66-1.25) mg/dL Glucose 126 H (74-99) mg/dL TIBC (228-460) ug/dL Transferrin (204.0-354.0) mg/dL Ferritin (22.0-322.0) ng/mL Total Bilirubin 9.5 H (0.2-1.3) mg/dL Conjugated Bilirubin 2.4 H (0.0-0.3) mg/dL Unconjugated Bilirubin 2.7 H (0.0-1.1) mg/dL Delta Bilirubin 4.4 H (0.0-0.2) mg/dL AST 121 H (17-59) U/L ALT 56 H (4-49) U/L Albumin 3.4 L (3.5-5.0) g/dL Assessment and Plan Assessment: 1. Chronic kidney disease NKF stage IV with baseline creatinine 1.9-2 mg/dL. Etiology nephrosclerosis. UA has been bland 2. Volume overload 3. Recent hospitalization with acute kidney injury, ATN versus hepatorenal syndrome. Creatinine had been staying around 3 mg/dL at [facility] 4. A. fib with RVR 5. Chronic liver disease, workup in progress. Possible hemachromatosis 6. Non-ST elevation NE 7. Hypervolemic hyponatremia, improved Plan: Continue with IV Lasix for another 24 hours Avoid any nephrotoxic agents Repeat labs in a.m.
[2021-10-14] MEDS: DILTIAZEM 125 MG in SODIUM CHLORIDE 0.9% 100 ML IV SCH (13:01)
[2021-10-14] MEDS ORDERED: PROCHLORPERAZINE INJ 10 MG/2 ML VIAL IVP PRN (13:49)
[2021-10-14] MEDS ORDERED: ONDANSETRON 4 MG/2 ML VIAL IVP PRN (13:49)
--- NOTE | 2021-10-14 14:26 | P.PN ---
Subjective Progress Note Date: 10/14/21 HISTORY OF PRESENT ILLNESS: This is a pleasant 81-year-old with past medical history significant for new onset liver disease, chronic kidney disease, concern of hemachromatosis, history of mechanical aortic valve, hypertension, new onset of atrial fibrillation. Unfortunately patient has had steady decline over the last year and especially last few months. He has had 2 hospitalizations with most recent hospitalization [facility] where he was diagnosed with new liver failure with elevated bilirubins up until the 19 range and apparently underwent extensive workup with concern of hemachromatosis. He also has been having chronic kidney disease and after [facility] proximally 3 weeks ago he was taken off of his Lasix. He has not had much of an appetite and denies any actual abdominal pain however has not been eating much. He has been gaining fluid and admits to increased lower extremity edema, increased mild dyspnea. Overall he was feeling okay and at his baseline however went to primary care physician's office and was noted to have new onset of A. fib with RVR. Therefore he was sent to the hospital. Patient does have a history of prior aortic stenosis and cardiac arrest at the age of 59 and underwent successful mechanical aortic valve replacement in 1999. EKG shows A. fib with RVR with minimal ST depressions in the lateral leads. Blood work shows hemoglobin 13.1, INR 6.7, sodium 128, creatinine 1.8, total bilirubin 10.8, AST 139, ALT 65, troponin 10.4 to, albumin 4.0. 10/14/2021 Patient examined at the bedside. Patient denies chest pain or pressure. Reports mild SOB. He remains on IV lasix. Telemetry reveals atrial fibrillation with a heart rate in the 60s. PHYSICAL EXAM: VITAL SIGNS: Reviewed. GENERAL: Well-developed in no acute distress. NECK: Supple. No JVD or thyromegaly LUNGS: Respirations even and unlabored. Lungs with bibasilar crackles. HEART: Irregular rate and rhythm. S1 and S2 heard. EXTREMITIES: Normal range of motion. No clubbing or cyanosis. Peripheral pulses intact. No lower extremity edema ASSESSMENT: 1. Acute on chronic diastolic heart failure 2. Chronic kidney disease 3. Acute liver injury, unclear diagnosis of possible hemachromatosis 4. Supratherapeutic INR. 5. New-onset A. fib with RVR 6. Non-STEMI likely type II mechanism PLAN: Discontinue IV Cardizem Continue current cardiac medications Continue telemetry monitoring Continue IV lasix per nephrology Limited 2D echo ordered. Await results. Further recommendations pending patient course Nurse practitioner note has been reviewed by physician. Signing provider agrees with the documented findings, assessment, and plan of care. Objective - Vital Signs Vital signs: Vital Signs Temp 97.6 F 10/14/21 07:46 Pulse 62 10/14/21 13:41 Resp 20 10/14/21 12:13 BP 102/56 10/14/21 12:13 Pulse Ox 94 L 10/14/21 12:13 Intake & Output 10/13/21 10/14/21 10/14/21 18:59 06:59 18:59 Intake Total 102.333 135 119.667 Output Total 550 Balance 102.333 -415 119.667 Weight 75.9 kg Intake: IV 10 Invasive Line 2 10 Intake, IV Titration 102.333 125 1.667 Amount Diltiazem 125 mg In 102.333 125 1.667 Sodium Chloride 0.9% 100 ml @ Per Protocol IV .Q0M [facility] Rx#:[id number] Oral 118 Output: Urine 550 Other: Voiding Method Toilet Toilet Urinal Urinal # Voids 1 # Bowel Movements 1 - Labs CBC & Chem 7: 10/14/21 09:01 10/14/21 09:01 Labs: Abnormal Lab Results - Last 24 Hours (Table) 10/13/21 10/14/21 10/14/21 Range/Units 10:14 09:01 09:01 RBC 3.68 L (4.30-5.90) m/uL Hgb 12.7 L (13.0-17.5) gm/dL Hct 38.4 L (39.0-53.0) % MCV 104.3 H (80.0-100.0) fL RDW 17.7 H (11.5-15.5) % Lymphocytes # 0.8 L (1.0-4.8) k/uL PT 75.2 H (9.0-12.0) sec INR 7.4 H* (<1.2) Sodium (137-145) mmol/L Chloride (98-107) mmol/L BUN (9-20) mg/dL Creatinine (0.66-1.25) mg/dL Glucose (74-99) mg/dL TIBC 202 L (228-460) ug/dL Transferrin 144.0 L (204.0-354.0) mg/dL Ferritin 751.0 H (22.0-322.0) ng/mL Total Bilirubin (0.2-1.3) mg/dL Conjugated Bilirubin (0.0-0.3) mg/dL Unconjugated Bilirubin (0.0-1.1) mg/dL Delta Bilirubin (0.0-0.2) mg/dL AST (17-59) U/L ALT (4-49) U/L Albumin (3.5-5.0) g/dL 10/14/21 Range/Units 09:01 RBC (4.30-5.90) m/uL Hgb (13.0-17.5) gm/dL Hct (39.0-53.0) % MCV (80.0-100.0) fL RDW (11.5-15.5) % Lymphocytes # (1.0-4.8) k/uL PT (9.0-12.0) sec INR (<1.2) Sodium 130 L (137-145) mmol/L Chloride 88 L (98-107) mmol/L BUN 43 H (9-20) mg/dL Creatinine 2.13 H (0.66-1.25) mg/dL Glucose 126 H (74-99) mg/dL TIBC (228-460) ug/dL Transferrin (204.0-354.0) mg/dL Ferritin (22.0-322.0) ng/mL Total Bilirubin 9.5 H (0.2-1.3) mg/dL Conjugated Bilirubin 2.4 H (0.0-0.3) mg/dL Unconjugated Bilirubin 2.7 H (0.0-1.1) mg/dL Delta Bilirubin 4.4 H (0.0-0.2) mg/dL AST 121 H (17-59) U/L ALT 56 H (4-49) U/L Albumin 3.4 L (3.5-5.0) g/dL
[2021-10-14] MEDS ORDERED: MIRTAZAPINE 15 MG TAB PO SCH (21:00)
[2021-10-15] MEDS: MIDODRINE 5 MG TAB PO SCH ×3 (06:28→18:02)
--- NOTE | 2021-10-15 07:00 | P.PN ---
Subjective Progress Note Date: 10/14/21 Principal diagnosis: Jaundice This is a 81-year-old male with multiple comorbidities including recent diagnosis of liver disease and jaundice who was seen at [facility] and followed up with gastroenterology Dr. Azevedo. He was following up with his primary care physician and was found to have elevated heart rate. Patient does have a past medical history including atrial fibrillation, valve replacement, hyperlipidemia, hypertension, renal disease. During his last admission and he was significantly jaundiced was the max bilirubin around 30 per reports the [facility]. Had no prior knowledge of liver disease. No history of alcohol abuse. He had multiple workups at [facility] including liver serology, CT of the abdomen and pelvis that showed no biliary dilation or CBD stone. The patient had no acute changes through the night. Cardiology and nephrology are following closely. INR remains supratherapeutic at 7.4. Hemoglobin stable at 12.7 platelet count 158,000. Liver enzymes continued to trend down. Total bilirubin 9.5, conjugated bilirubin 2.4 unconjugated 2.7 AST 121 ALT 56 alkaline phosphatase 101, TIBC 202 saturation 37 ferritin 751. Objective - Vital Signs Vital signs: Vital Signs Temp 97.6 F 10/14/21 07:46 Pulse 62 10/14/21 13:41 Resp 20 10/14/21 12:13 BP 102/56 10/14/21 12:13 Pulse Ox 94 L 10/14/21 12:13 Intake & Output 10/13/21 10/14/21 10/14/21 18:59 06:59 18:59 Intake Total 102.333 135 119.667 Output Total 550 Balance 102.333 -415 119.667 Weight 75.9 kg Intake: IV 10 Invasive Line 2 10 Intake, IV Titration 102.333 125 1.667 Amount Diltiazem 125 mg In 102.333 125 1.667 Sodium Chloride 0.9% 100 ml @ Per Protocol IV .Q0M [facility] Rx#:[id number] Oral 118 Output: Urine 550 Other: Voiding Method Toilet Toilet Urinal Urinal # Voids 1 # Bowel Movements 1 - Exam General appearance: The patient is alert, oriented, appears in no acute distress. HET: Head is normocephalic and atraumatic. Conjunctiva pink. Sclera icteric. Neck: Supple without lymphadenopathy. Abdomen: Soft, nontender, nondistended with bowel sounds. No guarding or rigidity. Extremities: Jaundice. Bilateral lower extremity pitting edema. Skin: No rashes, jaundice. Neurological: No focal deficits. Alert and oriented x 3. - Labs CBC & Chem 7: 10/14/21 09:01 10/14/21 09:01 Labs: Abnormal Lab Results - Last 24 Hours (Table) 10/13/21 10/14/21 10/14/21 Range/Units 10:14 09:01 09:01 RBC 3.68 L (4.30-5.90) m/uL Hgb 12.7 L (13.0-17.5) gm/dL Hct 38.4 L (39.0-53.0) % MCV 104.3 H (80.0-100.0) fL RDW 17.7 H (11.5-15.5) % Lymphocytes # 0.8 L (1.0-4.8) k/uL PT 75.2 H (9.0-12.0) sec INR 7.4 H* (<1.2) Sodium (137-145) mmol/L Chloride (98-107) mmol/L BUN (9-20) mg/dL Creatinine (0.66-1.25) mg/dL Glucose (74-99) mg/dL TIBC 202 L (228-460) ug/dL Transferrin 144.0 L (204.0-354.0) mg/dL Ferritin 751.0 H (22.0-322.0) ng/mL Total Bilirubin (0.2-1.3) mg/dL Conjugated Bilirubin (0.0-0.3) mg/dL Unconjugated Bilirubin (0.0-1.1) mg/dL Delta Bilirubin (0.0-0.2) mg/dL AST (17-59) U/L ALT (4-49) U/L Albumin (3.5-5.0) g/dL 10/14/21 Range/Units 09:01 RBC (4.30-5.90) m/uL Hgb (13.0-17.5) gm/dL Hct (39.0-53.0) % MCV (80.0-100.0) fL RDW (11.5-15.5) % Lymphocytes # (1.0-4.8) k/uL PT (9.0-12.0) sec INR (<1.2) Sodium 130 L (137-145) mmol/L Chloride 88 L (98-107) mmol/L BUN 43 H (9-20) mg/dL Creatinine 2.13 H (0.66-1.25) mg/dL Glucose 126 H (74-99) mg/dL TIBC (228-460) ug/dL Transferrin (204.0-354.0) mg/dL Ferritin (22.0-322.0) ng/mL Total Bilirubin 9.5 H (0.2-1.3) mg/dL Conjugated Bilirubin 2.4 H (0.0-0.3) mg/dL Unconjugated Bilirubin 2.7 H (0.0-1.1) mg/dL Delta Bilirubin 4.4 H (0.0-0.2) mg/dL AST 121 H (17-59) U/L ALT 56 H (4-49) U/L Albumin 3.4 L (3.5-5.0) g/dL Assessment and Plan (1) Chronic liver disease Narrative/Plan: 81-year-old male with multiple comorbidities who was admitted with tachycardia and recent hospitalization at [facility] for jaundice. Patient had extensive workup including the liver serology and was found to have H63D homozygous variant for hemochromatosis. Looking back and patient's labs he has had mild underlying elevation in his total bilirubin is since 2017 likely related to hemochromatosis. 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 Will order liver ultrasound, iron studies and ferritin. Current Visit: Yes Status: Acute Code(s): K76.9 - LIVER DISEASE, UNSPECIFIED SNOMED Code(s): 312725150 (2) Hemochromatosis Narrative/Plan: Hemochromatosis will be further managed as outpatient Current Visit: Yes Status: Acute Code(s): E83.119 - HEMOCHROMATOSIS, UNSPECIFIED SNOMED Code(s): 687466046 (3) Jaundice Current Visit: No Status: Acute Code(s): R17 - UNSPECIFIED JAUNDICE SNOMED Code(s): 13560145 (4) Chronic kidney disease Current Visit: Yes Status: Acute Code(s): N18.9 - CHRONIC KIDNEY DISEASE, UNSPECIFIED SNOMED Code(s): 701701480 (5) Supratherapeutic INR Current Visit: No Status: Acute Code(s): R79.1 - ABNORMAL COAGULATION PROFILE SNOMED Code(s): 589897194 Plan: 1. Continue symptomatic and supportive care 2. Low sodium diet, renal diet 3. Diuretics per nephrology 4. Iron studies, ferritin ordered 5. Outpatient management of hemochromatosis 6. Patient to keep scheduled appointment for Monday with Dr. Azevedo Thank you for this consultation, we will continue to follow. Dr. Gabriel Azevedo I agree with the dictator's note, documented as a scribe by Minnie Martinez.
--- NOTE | 2021-10-15 08:00 | ECHOF ---
Referral Reason:re: LV function, acute heart failure MEASUREMENTS -------- HEIGHT: 167.6 cm WEIGHT: 75.7 kg BP: 102/56 RVIDd: 2.7 cm (< 3.3) IVSd: 1.1 cm (0.6 - 1.1) LVIDd: 3.1 cm (3.9 - 5.3) LVPWd: 1.0 cm (0.6 - 1.1) IVSs: 1.6 cm LVIDs: 2.0 cm LVPWs: 1.4 cm LA Diam: 3.1 cm (2.7 - 3.8) Ao Diam: 3.1 cm (2.0 - 3.7) MV EXCURSION: 10.672 mm (> 18.000) MV EF SLOPE: 44 mm/s (70 - 150) EPSS: 1.4 cm MV E Nico: 1.19 m/s MV DecT: 213 ms MV A Nico: 0.91 m/s MV E/A Ratio: 1.31 AV maxP.90 mmHg AV meanP.72 mmHg RAP: 15.00 mmHg RVSP: 48.18 mmHg FINDINGS -------- Atrial fibrillation. This was a technically adequate study. The left ventricular size is normal. Left ventricular wall thickness is normal. Overall left vent ricular systolic function is normal with, an EF between 55 - 60 %. The right ventricle is normal in size. The left atrium is normal in size. The right atrium is normal in size. Interatrial and interventricular septum intact. Peak/mean gradient across the Aortic Valve is 21.90mmHg / 10.72mmHg. Normally functioning bioprosth etic valve. The mitral valve leaflets are mildly thickened. Mild mitral annular calcification present. Mild tricuspid regurgitation present. There is moderate pulmonary hypertension. The right ventric ular systolic pressure, as measured by Doppler, is 48.18mmHg. Trace/mild (physiologic) pulmonic regurgitation. The aortic root size is normal. The inferior vena cava is dilated with no significant inspiratory collapse which is consistent estima erwin right atrial pressure of >15 mmHg. There is no pericardial effusion. CONCLUSIONS -------- 1. The left ventricular size is normal. 2. Left ventricular wall thickness is normal. 3. Overall left ventricular systolic function is normal with, an EF between 55 - 60 %. 4. Peak/mean gradient across the Aortic Valve is 21.90mmHg / 10.72mmHg. 5. Normally functioning bioprosthetic valve. 6. The mitral valve leaflets are mildly thickened. 7. Mild mitral annular calcification present. 8. Mild tricuspid regurgitation present. 9. There is moderate pulmonary hypertension. 10. The right ventricular systolic pressure, as measured by Doppler, is 48.18mmHg. 11. Trace/mild (physiologic) pulmonic regurgitation. 12. The inferior vena cava is dilated with no significant inspiratory collapse which is consistent es timated right atrial pressure of >15 mmHg. 13. There is no pericardial effusion. PRESSING MACHINE TENDER: Tabitha Crane RDCS
[2021-10-15] MEDS: METOPROLOL TARTRATE 25 MG TAB PO SCH (08:07)
[2021-10-15] MEDS: LACTULOSE 20 GM/30 ML CUP PO SCH (08:08)
[2021-10-15] MEDS: FUROSEMIDE 10 MG/ML 4 ML VIAL IV SCH (08:16)
--- NOTE | 2021-10-15 12:30 | P.PN ---
Subjective Progress Note Date: 10/15/21 Principal diagnosis: Jaundice This is a 81-year-old male with multiple comorbidities including recent diagnosis of liver disease and jaundice who was seen at [facility] and followed up with gastroenterology Dr. Azevedo. He was following up with his primary care physician and was found to have elevated heart rate. Patient does have a past medical history including atrial fibrillation, valve replacement, hyperlipidemia, hypertension, renal disease. During his last admission and he was significantly jaundiced was the max bilirubin around 30 per reports the [facility]. Had no prior knowledge of liver disease. No history of alcohol abuse. He had multiple workups at [facility] including liver serology, CT of the abdomen and pelvis that showed no biliary dilation or CBD stone. The patient had no acute changes through the night. Cardiology and nephrology are following closely. INR remains supratherapeutic at 7.4. Hemoglobin stable at 12.7 platelet count 158,000. Liver enzymes continued to trend down. Total bilirubin 9.5, conjugated bilirubin 2.4 unconjugated 2.7 AST 121 ALT 56 alkaline phosphatase 101, TIBC 202 saturation 37 ferritin 751. Objective - Vital Signs Vital signs: Vital Signs Temp 97.5 F L 10/15/21 07:59 Pulse 74 10/15/21 08:00 Resp 18 10/15/21 07:59 BP 114/60 10/15/21 07:59 Pulse Ox 97 10/15/21 07:59 Intake & Output 10/14/21 10/15/21 10/15/21 18:59 06:59 18:59 Intake Total 419.667 10 Output Total 200 Balance 219.667 10 Weight 75.9 kg Intake: IV 10 Invasive Line 3 10 Intake, IV Titration 1.667 Amount Diltiazem 125 mg In 1.667 Sodium Chloride 0.9% 100 ml @ Per Protocol IV .Q0M [facility] Rx#:[id number] Oral 418 Output: Emesis 200 Other: Voiding Method Toilet Toilet Toilet Urinal Urinal Urinal # Voids 5 3 1 # Bowel Movements 2 1 - Labs CBC & Chem 7: 10/14/21 09:01 10/14/21 09:01 Assessment and Plan (1) Chronic liver disease Narrative/Plan: 81-year-old male with multiple comorbidities who was admitted with tachycardia and recent hospitalization at [facility] for jaundice. Patient had extensive workup including the liver serology and was found to have H63D homozygous variant for hemochromatosis. Looking back and patient's labs he has had mild underlying elevation in his total bilirubin is since 2017 likely related to hemochromatosis. 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 Will order liver ultrasound, iron studies and ferritin. Current Visit: Yes Status: Acute Code(s): K76.9 - LIVER DISEASE, UNSPECIFIED SNOMED Code(s): 923553773 (2) Hemochromatosis Narrative/Plan: Hemochromatosis will be further managed as outpatient Current Visit: Yes Status: Acute Code(s): E83.119 - HEMOCHROMATOSIS, UNSPECIFIED SNOMED Code(s): 482004857 (3) Jaundice Current Visit: No Status: Acute Code(s): R17 - UNSPECIFIED JAUNDICE SNOMED Code(s): 90124981 (4) Chronic kidney disease Current Visit: Yes Status: Acute Code(s): N18.9 - CHRONIC KIDNEY DISEASE, UNSPECIFIED SNOMED Code(s): 369064914 (5) Supratherapeutic INR Current Visit: No Status: Acute Code(s): R79.1 - ABNORMAL COAGULATION PROFILE SNOMED Code(s): 052952406 Plan: 1. Continue symptomatic and supportive care 2. Low sodium diet, renal diet 3. Diuretics per nephrology 4. Iron studies, ferritin ordered 5. Outpatient management of hemochromatosis 6. Patient to keep scheduled appointment for Monday with Dr. Azevedo 7. Lactulose 20 g daily, titrate to have 3-4 bowel movements daily. Thank you for this consultation, patient is cleared for discharge from gastroenterology. Dr. Gabriel Azevedo I agree with the dictator's note, documented as a scribe by Minnie Martinez.
[2021-10-15 13:01] LABS: Anisocytosis Slight; HCT 40.7 % (39.0-53.0); HGB 13.2 gm/dL (13.0-17.5); Hypochromasia Slight; MCH 34.3 pg (25.0-35.0); MCHC 32.5 g/dL (31.0-37.0); MCV 105.6 fL (80.0-100.0); Macrocytosis Marked; Mean Platelet Volume 8.9; Platelet Count 179 k/uL (150-450); RBC 3.85 m/uL (4.30-5.90); RDW 17.6 % (11.5-15.5); WBC 8.6 k/uL (3.8-10.6)
[2021-10-15 13:36] LABS: Albumin 3.7 g/dL (3.5-5.0); Calcium 9.3 mg/dL (8.4-10.2); Potassium 3.5 mmol/L (3.5-5.1); Total Bilirubin 9.7 mg/dL (0.2-1.3); Total Protein 7.7 g/dL (6.3-8.2)
--- NOTE | 2021-10-15 13:39 | P.PN ---
Progress Note - Text Progress Note Date: 10/15/21 Patient in the bathroom during cardiology rounds. Dr. Sinclair will attempt to see patient this afternoon.
--- NOTE | 2021-10-15 14:31 | P.PN ---
Progress Note - Text Progress Note Date: 10/15/21 Attempted to see patient twice today, but he was not available. I will see him again tomorrow.
--- NOTE | 2021-10-15 15:29 | P.DS ---
Providers Date of admission: 10/12/21 20:41 Expected date of discharge: 10/15/21 Attending physician: Joseph Bond MD Consults: 10/12/21 20:41 Consult Physician Urgent Consulting Provider: Lady Tompkins Consult Reason/Comments: rvr, nstemi Do you want consulting provider notified?: Yes Consult Physician Urgent Consulting Provider: Darlin Azevedo Consult Reason/Comments: hepatorenal syndrome Do you want consulting provider notified?: Yes, Notify in am 10/13/21 08:23 Consult Physician Urgent Consulting Provider: Everardo Walters Consult Reason/Comments: hepatorenal syndrome, known to you Do you want consulting provider notified?: Yes Primary care physician: Lady Shabazz MD Hospital Course: The patient is 81-year-old male with a PMH of diastolic CHF, hepatorenal syndrome (unclear etiology of liver disease), bioprosthetic aortic valve on Coumadin, hypertension, and hyperlipidemia who was brought into the emergency room after he was found to be severely tachycardic at his PCPs appointment. Laboratory evaluation was remarkable for troponin of 0.424, INR 6.7, sodium 128, chloride 88, BUN 35, creatinine 1.82, total bilirubin 10.8, AST 139, ALT 65, alk phos 148, and MCV 103.4. EKG demonstrated AFib with RVR. Paroxysmal A. fib with RVR Supratherapeutic INR Elevated troponin, likely due to uncontrolled A. fib with RVR Patient was started on dilt gtt, then transitioned to oral metoprolol by cardiology. Coumadin was held due to supratherapeutic INR, and will be discontinued on discharge with routine follow up with PCP for timing of resumption. Echo was done which showed good EF, no WMA, no diastolic dysfunction, thickened MV. No solid evidence for restrictive cardiomyopathy. 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 They started lactulose as well to prevent hepatic encephalopathy. CKD, suspected hepatorenal syndrome -Monitored with nephrology consult. They treated patient with IV lasix for volume overload status. I spent 35 minutes coordinating this complex discharge Gen: awake, alert HEENT: normocephalic, atraumatic, good hearing acuity, moist mucous membranes Resp: good air exchange, breathing comfortably with no accessory muscle use CVS: good distal perfusion x 4, irregular rhythm, tachycardic, no murmurs GI: Mildly distended : no SPT, no CVAT, murry catheter not present MSK: Bilateral pitting edema, no clubbing Neuro: non-focal, moving all extremities Psych: cooperative, euthymic mood Patient Condition at Discharge: Good Plan - Discharge Summary Discharge Rx Participant: No New Discharge Prescriptions: New Lactulose [Cephulac] 20 gm PO DAILY #1800 ml Mirtazapine [Remeron] 7.5 mg PO HS #15 tab Metoprolol Tartrate [Lopressor] 25 mg PO BID #60 tab Continue Warfarin [Coumadin] 5 mg PO SUTUTHSA Midodrine [ProAmatine] 5 - 10 mg PO DIRECTED PRN PRN Reason: LOW BLOOD PRESSURE Warfarin [Coumadin] 2.5 mg PO MOWEFR Sodium Bicarbonate Tab 1,300 mg PO TID@0800,1200,1530 Changed Furosemide [Lasix] 40 mg PO BID #60 tab Discharge Medication List Warfarin [Coumadin] 5 mg PO SUTUTHSA 11/27/15 [History] Warfarin [Coumadin] 2.5 mg PO MOWEFR 08/31/21 [History] Midodrine [ProAmatine] 5 - 10 mg PO DIRECTED PRN 10/12/21 [History] Sodium Bicarbonate Tab 1,300 mg PO TID@0800,1200,1530 10/12/21 [History] Furosemide [Lasix] 40 mg PO BID #60 tab 10/15/21 [Rx] Lactulose [Cephulac] 20 gm PO DAILY #1800 ml 10/15/21 [Rx] Metoprolol Tartrate [Lopressor] 25 mg PO BID #60 tab 10/15/21 [Rx] Mirtazapine [Remeron] 7.5 mg PO HS #15 tab 10/15/21 [Rx] Follow up Appointment(s)/Referral(s): Lady Shabazz MD [Primary Care Provider] - 1-2 days Darlin Azevedo MD [STAFF PHYSICIAN] - 10/18/21 [facility], [NON-STAFF] - Discharge Disposition: HOME WITH HOME HEALTH SERVICES
--- NOTE | 2021-10-15 16:58 | P.PN ---
Subjective Patient is seen for follow-up for acute kidney injury on top of chronic kidney disease. He is currently being diuresed and maintained on IV Lasix every 12 hours. Overall patient states he is feeling better. Serum creatinine is increased to 2.7 today Labs were pending when pt was seen this morning Iv diuretics to be switched to PO Objective - Vital Signs Vital signs: Vital Signs Temp 97.5 F L 10/15/21 07:59 Pulse 73 10/15/21 14:00 Resp 20 10/15/21 11:48 BP 100/72 10/15/21 11:48 Pulse Ox 100 10/15/21 11:48 Intake & Output 10/14/21 10/15/21 10/15/21 18:59 06:59 18:59 Intake Total 419.667 10 Output Total 200 Balance 219.667 10 Weight 75.9 kg Intake: IV 10 Invasive Line 3 10 Intake, IV Titration 1.667 Amount Diltiazem 125 mg In 1.667 Sodium Chloride 0.9% 100 ml @ Per Protocol IV .Q0M [facility] Rx#:[id number] Oral 418 Output: Emesis 200 Other: Voiding Method Toilet Toilet Toilet Urinal Urinal Urinal # Voids 5 3 1 # Bowel Movements 2 1 - Exam Patient is awake Comfortable Not in any acute distress Mittie hard of hearing Examination of the heart S1 and S2 Examination lungs bilateral breath sounds are heard Abdomen is soft distended Examination lower extremity shows edema 1+ bilaterally [employer] exam grossly intact - Labs CBC & Chem 7: 10/15/21 12:08 10/15/21 12:08 Labs: Abnormal Lab Results - Last 24 Hours (Table) 10/15/21 10/15/21 Range/Units 12:08 12:08 RBC 3.85 L (4.30-5.90) m/uL MCV 105.6 H (80.0-100.0) fL RDW 17.6 H (11.5-15.5) % Macrocytosis Marked A Sodium 131 L (137-145) mmol/L Chloride 90 L (98-107) mmol/L BUN 52 H (9-20) mg/dL Creatinine 2.77 H (0.66-1.25) mg/dL Glucose 101 H (74-99) mg/dL Total Bilirubin 9.7 H (0.2-1.3) mg/dL AST 124 H (17-59) U/L ALT 63 H (4-49) U/L Assessment and Plan Assessment: 1. Chronic kidney disease NKF stage IV with baseline creatinine 1.9-2 mg/dL. Etiology nephrosclerosis. UA has been bland 2. Volume overload, improved. 3. Recent hospitalization with acute kidney injury, ATN versus hepatorenal syndrome. Creatinine had been staying around 3 mg/dL at [facility] 4. A. fib with RVR 5. Chronic liver disease, workup in progress. Possible hemachromatosis 6. Non-ST elevation CA 7. Hypervolemic hyponatremia, improved Plan: Switch to PO diuretcs Pt can be discharged from nephrology stand point Avoid any nephrotoxic agents F/u in the office in 1 week.
[2021-10-15 18:00] VITALS: BP 96/50; PULSE 89; RESP 18; TEMP 97.4
[2021-10-15] MEDS ORDERED: WARFARIN 0.5 MG TAB PO ONE (18:00)
[2021-10-16] MEDS ORDERED: LACTULOSE 20 GM/30 ML CUP PO SCH (09:00)
== END 2021-10-15 19:02 | disposition home health service (06) | DRG 280 ==
LOC: EC 17:52 → 3SCARD 20:41
PROVIDERS: ADMIT Internal Medicine; ATTEND Internal Medicine
DX: I48.0 Paroxysmal atrial fibrillation (principal); K76.7 Hepatorenal syndrome; I21.A1 Myocardial infarction type 2; I50.33 Acute on chronic diastolic (congestive) heart failure; N17.0 Acute kidney failure with tubular necrosis; I13.0 Hypertensive heart and chronic kidney disease with heart failure and stage 1 through stage 4 chronic kidney disease, or unspecified chronic kidney disease; N18.4 Chronic kidney disease, stage 4 (severe); E87.1 Hypo-osmolality and hyponatremia; R79.1 Abnormal coagulation profile; Z66 Do not resuscitate; K74.60 Unspecified cirrhosis of liver; R00.0 Tachycardia, unspecified; K72.10 Chronic hepatic failure without coma; I07.1 Rheumatic tricuspid insufficiency; I37.1 Nonrheumatic pulmonary valve insufficiency; E87.70 Fluid overload, unspecified; E83.119 Hemochromatosis, unspecified; I35.0 Nonrheumatic aortic (valve) stenosis; E78.5 Hyperlipidemia, unspecified; K21.9 Gastro-esophageal reflux disease without esophagitis; D64.9 Anemia, unspecified; H91.90 Unspecified hearing loss, unspecified ear; Z95.3 Presence of xenogenic heart valve; Z98.42 Cataract extraction status, left eye; Z98.41 Cataract extraction status, right eye; Z88.8 Allergy status to other drugs, medicaments and biological substances; Z79.01 Long term (current) use of anticoagulants; Z79.899 Other long term (current) drug therapy; Z87.891 Personal history of nicotine dependence; Z85.828 Personal history of other malignant neoplasm of skin; Z87.19 Personal history of other diseases of the digestive system; Z87.820 Personal history of traumatic brain injury; Z86.74 Personal history of sudden cardiac arrest; Z80.6 Family history of leukemia; Z80.0 Family history of malignant neoplasm of digestive organs; Z80.8 Family history of malignant neoplasm of other organs or systems; Z87.01 Personal history of pneumonia (recurrent); Z86.010 Personal history of colon polyps; Z95.2 Presence of prosthetic heart valve; Z88.5 Allergy status to narcotic agent
CPT/HCPCS: 36415; 71046; 76705; 80048; 80053; 80076; 82140; 82728; 83540; 83550; 83735; 84443; 84484; 85025; 85027; 85610; 85730; 93005; 93306; 94760; 96365; 96366; 99285

== ENCOUNTER → 2021-10-12 | Outpatient (CLI) | payer MEDICARE ==
--- NOTE | 2021-10-12 10:48 | US ---
EXAMINATION TYPE: US abdomen limited DATE OF EXAM: 10/12/2021 COMPARISON: NONE CLINICAL HISTORY: N17.9 Acute Kidney Injury, R60.9 EDMA. All four quadrants were scanned, and there is small amount of fluid in RUQ and RLQ. There is also rig ht pleural effusion noted. IMPRESSION: Mild Ascites
== END | disposition home or self-care (01) ==
LOC: RADUSWWP 10:11
PROVIDERS: ATTEND Internal Medicine
DX: R18.8 Other ascites (principal)
CPT/HCPCS: 76705

== ENCOUNTER 2021-10-16 06:58 | Emergency (ER) | payer MEDICARE ==
[2021-10-16] MEDS ORDERED: SODIUM CHLORIDE 0.9% 1,000 ML IV ONE (07:02)
--- NOTE | 2021-10-16 07:10 | ED ---
CPR HPI - General Source: EMS Mode of arrival: EMS Limitations: altered mental status - History of Present Illness MD Complaint: collapsed during rest -: minute(s) Place: home AED Applied by Bystander/Behavioral Medical Director: Yes Shock Advised: No Initial Findings in the Field: unresponsive, no respirations, no pulse, other rhythm (Asystole) ROSC in the Field: Yes Treatments Prior to Arrival: intubation, BMV, epinephrine mgs # (2) <John Navarro - Last Filed: 10/16/21 07:07> <Forest Ellis - Last Filed: 10/16/21 10:05> - General Stated Complaint: Cardiac arrest Time Seen by Provider: 10/16/21 07:01 - History of Present Illness Initial Comments: Patient is 81-year-old man brought by ambulance after collapsing at home. This history is from EMS. It was reported that the patient had stated he wasn't feeling well and then had collapsed. EMS arrived and found the patient to have asystole on the monitor. He was not responsive. There were no vital signs. They instituted ACLS protocol. He had total of 2 rounds of epinephrine, chest compressions, was intubated with 7.5 ET tube. There was ROSC in the field. No further history available at this time. (John Navarro) I went in and evaluated the patient is a 81-year-old man whom I told was awake and alert and said he didn't feel well and then collapsed. It was a witnessed arrest. Patient was down for approximately 12 minutes before they got Ross in the field and ACLS protocol was followed during that time. Currently patient is unresponsive no family. To speak to so no further history is available. (Forest Ellis) - Related Data Home Medications Medication Instructions Recorded Confirmed Midodrine [ProAmatine] 5 - 10 mg PO DIRECTED PRN 10/12/21 10/12/21 Sodium Bicarbonate Tab 1,300 mg PO TID@0800,1200,1530 10/12/21 10/12/21 Previous Rx's Medication Instructions Recorded Furosemide [Lasix] 40 mg PO BID #60 tab 10/15/21 Lactulose [Cephulac] 20 gm PO DAILY #1800 ml 10/15/21 Metoprolol Tartrate [Lopressor] 25 mg PO BID #60 tab 10/15/21 Mirtazapine [Remeron] 7.5 mg PO HS #15 tab 10/15/21 Allergies Allergy/AdvReac Type Severity Reaction Status Date / Time meperidine HCl [From Demerol] Allergy Anaphylaxis Verified 10/16/21 07:08 phenytoin sodium Allergy Rash/Hives Verified 10/16/21 07:08 [From Dilantin] phenytoin sodium extended Allergy Rash/Hives Verified 10/16/21 07:08 [From Dilantin] Review of Systems ROS Other: All systems not noted in ROS Statement are negative. <John Navarro - Last Filed: 10/16/21 07:07> ROS Other: All systems not noted in ROS Statement are negative. <Forest Ellis - Last Filed: 10/16/21 10:05> ROS Statement: Those systems with pertinent positive or pertinent negative responses have been documented in the HPI. 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" @ 22 yrs old; aortic valve replacement (1999); brain surgery x2(subdural hematoma from fall), esophageal dilations, BORA cataract removal Past Anesthesia/Blood Transfusion Reactions: No Reported Reaction Past Psychological History: No Psychological Hx Reported Smoking Status: Former smoker Past Alcohol Use History: None Reported Past Drug Use History: None Reported - Past Family History Father Family Medical History: Cancer Additional Family Medical History / Comment(s): leukemia Mother Family Medical History: Cancer Additional Family Medical History / Comment(s): breast/colon cancer Daughter(s) Family Medical History: Cancer Additional Family Medical History / Comment(s): melanoma <John Navarro - Last Filed: 10/16/21 07:07> General Exam <Forest Ellis - Last Filed: 10/16/21 10:05> - General Exam Comments Initial Comments: GENERAL: Patient is well-developed and well-nourished. Patient is unresponsive. ENT: Patient has no gross abnormalities of the neck. EYES: Pupils are fixed and nonresponsive to light PULMONARY: Vital signs are heard bilaterally CARDIOVASCULAR: Patient is tachycardic at 140 beats minute ABDOMEN: Soft and nontender with normal bowel sounds. SKIN: Skin is clear with no lesions or rashes and otherwise unremarkable. NEUROLOGIC: Patient is not alert and is unresponsive MUSCULOSKELETAL: Patient is not moving any extremities. LYMPHATICS: No significant lymphadenopathy is noted PSYCHIATRIC: Unable secondary to patient's condition (Forest Ellis) Course Vital Signs 10/16/21 10/16/21 10/16/21 07:03 07:24 07:48 Pulse Rate 117 H 123 H 98 Respiratory 14 16 Rate Blood Pressure 107/86 84/70 71/42 O2 Sat by Pulse 100 96 Oximetry 10/16/21 10/16/21 10/16/21 07:55 08:29 08:42 Pulse Rate 106 H 105 H 128 H Respiratory 16 18 14 Rate Blood Pressure 67/48 72/44 105/89 O2 Sat by Pulse 90 L 98 Oximetry 10/16/21 10/16/21 10/16/21 08:57 09:23 09:42 Pulse Rate 133 H 121 H 90 Respiratory 12 18 28 H Rate Blood Pressure 100/63 84/62 69/54 O2 Sat by Pulse 64 L 50 L 73 L Oximetry 10/16/21 09:48 Pulse Rate 42 L Respiratory 20 Rate Blood Pressure 58/35 O2 Sat by Pulse 58 L Oximetry Medical Decision Making - Lab Data Result diagrams: 10/16/21 07:26 10/16/21 07:26 <Forest Ellis - Last Filed: 10/16/21 10:05> - Medical Decision Making EKG shows tachycardia at 140 beats a minute it may be a junctional tachycardia or possible atrial flutter QRSs 89 QT interval 36 QTC is 387. No ST segment elevation is present. Patient had a previous EKG in this is similar in comparison except for the tachycardia. I spoke with the family and the family it was the the son and the daughter. The stated she did not want anymore CPR did not want any pressors. They eventually want to come back and see the father and then have the ventilator sto pped. Family stated that the father wanted to be a no code. When patient came back the patient was extubated and he slowly decompensated to the point where he was pronounced at 1001. I spoke with the medical dermatologist. (Forest Ellis) - Lab Data Lab Results 10/16/21 10/16/21 10/16/21 Range/Units 07:22 07:26 07:26 WBC 10.8 H (3.8-10.6) k/uL RBC 3.79 L (4.30-5.90) m/uL Hgb 12.7 L (13.0-17.5) gm/dL Hct 39.3 (39.0-53.0) % MCV 103.7 H (80.0-100.0) fL MCH 33.5 (25.0-35.0) pg MCHC 32.3 (31.0-37.0) g/dL RDW 17.0 H (11.5-15.5) % Plt Count 182 (150-450) k/uL MPV 9.3 Neutrophils % 64 % Lymphocytes % 22 % Monocytes % 8 % Eosinophils % 2 % Basophils % 1 % Neutrophils # 6.9 (1.3-7.7) k/uL Lymphocytes # 2.4 (1.0-4.8) k/uL Monocytes # 0.9 (0-1.0) k/uL Eosinophils # 0.2 (0-0.7) k/uL Basophils # 0.1 (0-0.2) k/uL Anisocytosis Slight Macrocytosis Moderate PT 66.1 H (9.0-12.0) sec INR 6.5 H* (<1.2) APTT 34.0 H (22.0-30.0) sec Sodium (137-145) mmol/L Potassium (3.5-5.1) mmol/L Chloride (98-107) mmol/L Carbon Dioxide (22-30) mmol/L Anion Gap mmol/L BUN (9-20) mg/dL Creatinine (0.66-1.25) mg/dL Est GFR (CKD-EPI)AfAm (>60 ml/min/1.73 sqM) Est GFR (CKD-EPI)NonAf (>60 ml/min/1.73 sqM) Glucose (74-99) mg/dL Calcium (8.4-10.2) mg/dL Total Bilirubin (0.2-1.3) mg/dL AST (17-59) U/L ALT (4-49) U/L Alkaline Phosphatase (38-126) U/L Ammonia (<30) umol/L Troponin I (0.000-0.034) ng/mL Total Protein (6.3-8.2) g/dL Albumin (3.5-5.0) g/dL Urine Color Dark Yellow Urine Appearance Cloudy (Clear) Urine pH 6.0 (5.0-8.0) Ur Specific [place] 1.012 (1.001-1.035) Urine Protein 2+ H (Negative) Urine Glucose (UA) Negative (Negative) Urine Ketones Negative (Negative) Urine Blood Moderate H (Negative) Urine Nitrite Negative (Negative) Urine Bilirubin 1+ H (Negative) Urine Urobilinogen 4.0 (<2.0) mg/dL Ur Leukocyte Esterase Negative (Negative) Urine RBC 60 H (0-5) /hpf Urine WBC 15 H (0-5) /hpf Ur Squamous Epith Cells 1 (0-4) /hpf Amorphous Sediment Few H (None) /hpf Urine Bacteria Rare H (None) /hpf Hyaline Casts 19 H (0-2) /lpf Urine Mucus Occasional H (None) /hpf Urine Opiates Screen Not Detected (NotDetected) Ur Oxycodone Screen Not Detected (NotDetected) Urine Methadone Screen Not Detected (NotDetected) Ur Propoxyphene Screen Not Detected (NotDetected) Ur Barbiturates Screen Not Detected (NotDetected) U Tricyclic Antidepress Not Detected (NotDetected) Ur Phencyclidine Scrn Not Detected (NotDetected) Ur Amphetamines Screen Not Detected (NotDetected) U Methamphetamines Scrn Not Detected (NotDetected) U Benzodiazepines Scrn Not Detected (NotDetected) Urine Cocaine Screen Not Detected (NotDetected) U Marijuana (THC) Screen Not Detected (NotDetected) Serum Alcohol mg/dL 10/16/21 10/16/21 10/16/21 Range/Units 07:26 07:26 07:26 WBC (3.8-10.6) k/uL RBC (4.30-5.90) m/uL Hgb (13.0-17.5) gm/dL Hct (39.0-53.0) % MCV (80.0-100.0) fL MCH (25.0-35.0) pg MCHC (31.0-37.0) g/dL RDW (11.5-15.5) % Plt Count (150-450) k/uL MPV Neutrophils % % Lymphocytes % % Monocytes % % Eosinophils % % Basophils % % Neutrophils # (1.3-7.7) k/uL Lymphocytes # (1.0-4.8) k/uL Monocytes # (0-1.0) k/uL Eosinophils # (0-0.7) k/uL Basophils # (0-0.2) k/uL Anisocytosis Macrocytosis PT (9.0-12.0) sec INR (<1.2) APTT (22.0-30.0) sec Sodium 128 L (137-145) mmol/L Potassium 3.6 (3.5-5.1) mmol/L Chloride 90 L (98-107) mmol/L Carbon Dioxide 25 (22-30) mmol/L Anion Gap 13 mmol/L BUN 57 H (9-20) mg/dL Creatinine 3.08 H (0.66-1.25) mg/dL Est GFR (CKD-EPI)AfAm 21 (>60 ml/min/1.73 sqM) Est GFR (CKD-EPI)NonAf 18 (>60 ml/min/1.73 sqM) Glucose 121 H (74-99) mg/dL Calcium 10.2 (8.4-10.2) mg/dL Total Bilirubin 8.4 H (0.2-1.3) mg/dL AST 122 H (17-59) U/L ALT 55 H (4-49) U/L Alkaline Phosphatase 112 (38-126) U/L Ammonia <9 (<30) umol/L Troponin I 0.231 H* (0.000-0.034) ng/mL Total Protein 6.8 (6.3-8.2) g/dL Albumin 3.3 L (3.5-5.0) g/dL Urine Color Urine Appearance (Clear) Urine pH (5.0-8.0) Ur Specific [place] (1.001-1.035) Urine Protein (Negative) Urine Glucose (UA) (Negative) Urine Ketones (Negative) Urine Blood (Negative) Urine Nitrite (Negative) Urine Bilirubin (Negative) Urine Urobilinogen (<2.0) mg/dL Ur Leukocyte Esterase (Negative) Urine RBC (0-5) /hpf Urine WBC (0-5) /hpf Ur Squamous Epith Cells (0-4) /hpf Amorphous Sediment (None) /hpf Urine Bacteria (None) /hpf Hyaline Casts (0-2) /lpf Urine Mucus (None) /hpf Urine Opiates Screen (NotDetected) Ur Oxycodone Screen (NotDetected) Urine Methadone Screen (NotDetected) Ur Propoxyphene Screen (NotDetected) Ur Barbiturates Screen (NotDetected) U Tricyclic Antidepress (NotDetected) Ur Phencyclidine Scrn (NotDetected) Ur Amphetamines Screen (NotDetected) U Methamphetamines Scrn (NotDetected) U Benzodiazepines Scrn (NotDetected) Urine Cocaine Screen (NotDetected) U Marijuana (THC) Screen (NotDetected) Serum Alcohol <10 mg/dL Disposition <John Navarro - Last Filed: 10/16/21 07:07> Preliminary Cause of : Cardiopulmonary arrest <Forest Ellis - Last Filed: 10/16/21 10:05> Clinical Impression: Cardiopulmonary arrest Disposition: Referrals: Lady Shabazz MD [Primary Care Provider] - 1-2 days
--- NOTE | 2021-10-16 07:24 | XR ---
EXAMINATION TYPE: XR chest 1V portable DATE OF EXAM: 10/16/2021 COMPARISON: Chest x-ray 4 days ago HISTORY: Altered mental status. Line placement. TECHNIQUE: Single AP portable frontal upright view of the chest is obtained. FINDINGS: Low-lying endotracheal tube needs to be pulled back as is in right mainstem bronchus. Sati sfactory positioning of orogastric tube below diaphragm. Overlying sternal wires are redemonstrated. Small to moderate-sized right greater left pleural effusi ons remain present. Bilateral increased opacities consistent with edema and/or infiltrates more promi nent from prior. Cardiac silhouette size stable and upper limits of normal with suspected pericardial calcifications. Calcification at level of the aortic knob. IMPRESSION: 1. Low-lying endotracheal tube needs to be retracted. Satisfactory positioning orogastric tube. 2. Small to moderate-sized right greater left pleural effusions slightly more prominent. More promine nt bilateral multifocal edema and/or infiltrates also noted. Critical results of endotracheal tube called to emergency room at time of dictation
[2021-10-16 07:44] LABS: Anisocytosis Slight; Basophils # (A) 0.1 k/uL (0-0.2); Basophils % (A) 1 %; Eosinophils # (A) 0.2 k/uL (0-0.7); Eosinophils % (A) 2 %; HCT 39.3 % (39.0-53.0); HGB 12.7 gm/dL (13.0-17.5); Lymphocytes # (A) 2.4 k/uL (1.0-4.8); Lymphocytes % (A) 22 %; MCH 33.5 pg (25.0-35.0); MCHC 32.3 g/dL (31.0-37.0); MCV 103.7 fL (80.0-100.0); Macrocytosis Moderate; Mean Platelet Volume 9.3; Monocytes # (A) 0.9 k/uL (0-1.0); Monocytes % (A) 8 %; Neutrophils # (A) 6.9 k/uL (1.3-7.7); Neutrophils % (A) 64 %; Platelet Count 182 k/uL (150-450); RBC 3.79 m/uL (4.30-5.90); WBC 10.8 k/uL (3.8-10.6)
[2021-10-16 07:53] LABS: ALT 55 U/L (4-49); AST 122 U/L (17-59); African American GFR (CKD) 21 (>60 ml/min/1.73 sqM); Albumin 3.3 g/dL (3.5-5.0); Alcohol <10 mg/dL; Alkaline Phosphatase 112 U/L (38-126); Anion Gap 13 mmol/L; Blood Urea Nitrogen 57 mg/dL (9-20); Calcium 10.2 mg/dL (8.4-10.2); Carbon Dioxide 25 mmol/L (22-30); Chloride 90 mmol/L (98-107); Glucose 121 mg/dL (74-99); Non-African American GFR(CKD) 18 (>60 ml/min/1.73 sqM); Potassium 3.6 mmol/L (3.5-5.1); Sodium 128 mmol/L (137-145); Total Bilirubin 8.4 mg/dL (0.2-1.3); Total Protein 6.8 g/dL (6.3-8.2)
[2021-10-16 08:00] LABS: Prothrombin Time 66.1 sec (9.0-12.0)
[2021-10-16 08:07] LABS: Amphetamine Screen,Urine Not Detected (NotDetected); Barbiturate Screen,Urine Not Detected (NotDetected); Benzodiazepines Screen,Urine Not Detected (NotDetected); Cocaine Screen,Urine Not Detected (NotDetected); Methadone Screen, Urine Not Detected (NotDetected); Opiate Screen,Urine Not Detected (NotDetected); Oxycodone Screen, Urine Not Detected (NotDetected); Phencyclidine Screen,Urine Not Detected (NotDetected); Tricyclic Antidepressant,Urine Not Detected (NotDetected); Urn Cannabinoid Scrn Not Detected (NotDetected)
[2021-10-16 08:16] LABS: INR 6.5 (<1.2)
[2021-10-16] MEDS ORDERED: MORPHINE SULFATE 4 MG/ML SYRINGE IVP STA ×3 (08:34→09:34)
[2021-10-16 08:45] LABS: Amorphous Sediment,Urine Few /hpf; Appearance,Urine Cloudy (Clear); Bacteria,Urine Rare /hpf; Bilirubin,Urine 1+ (Negative); Blood,Urine Moderate (Negative); Color,Urine Dark Yellow; Glucose,Urine (UA) Negative (Negative); Hyaline Casts,Urine 19 /lpf (0-2); Ketones,Urine Negative (Negative); Leukocyte Esterase,Urine Negative (Negative); Mucus,Urine Occasional /hpf; Nitrite,Urine Negative (Negative); Protein,Urine 2+ (Negative); RBC,Urine 60 /hpf (0-5); Specific Gravity,Urine 1.012 (1.001-1.035); Squamous Epithelial Cell,Urine 1 /hpf (0-4); WBC,Urine 15 /hpf (0-5)
[2021-10-16 09:49] VITALS: BP 58/35
[2021-10-16 10:30] VITALS: PULSE 0; RESP 0
== END 2021-10-16 11:29 | disposition expired ==
LOC: EC 06:58
DX: I46.9 Cardiac arrest, cause unspecified (principal); I10 Essential (primary) hypertension; E78.5 Hyperlipidemia, unspecified; K21.9 Gastro-esophageal reflux disease without esophagitis; Z87.891 Personal history of nicotine dependence; Z79.899 Other long term (current) drug therapy
CPT/HCPCS: 36415; 94002; 93005; 80053; 82140; 84484; 85025; 85610; 85730; 81001; 80306; 71045; 99285; 96374; 96376; 96361; G0480; J2270; 80320